=== PATIENT | male | born 1935 | race Caucasian/White ===

== ENCOUNTER 2017-01-21 11:51 | Inpatient (IN) | payer OTHER, MEDICARE ==
[~2017-01-21] VITALS: Ht 180.3 cm; Wt 70.2 kg
--- NOTE | 2017-01-21 14:58 | ED NURSING NOTES ---
Clinical Report - Nurses [facility] [address] [place] [address] 01/21/2017 11:51 Patient: XENA MAK TRIAGE Triage time 12:06. Acuity: LEVEL 3. Chief Complaint: ABDOMINAL PAIN. 12:19 01/21/17. Alert. SEPSIS SCREEN: Sepsis Screen. Negative (no infection suspected/documented). --12:19 Thlaia Stanley R.N. 12:08 01/21/17. BP: 165/63. HR: 102. RR: 22. O2 saturation: 96%. Temp: 97.3 F. Pain level now: 12/03. --12:19 Thalia Stanley R.N. 12:23 01/21/17. --12:23 Thalia Stanley R.N. 15:44 01/21/17. --15:44 Thalia Stanley R.N. Weight: 71.6 kg stated. Height/Length: 71 inches Per Patient. BMI: 22. --12:18 Thalia Stanley R.N. Medications Ranitidine HCl Oral. --12:21 Thalia Stanley R.N. Atorvastatin Calcium Oral (Tablet 20 mg) 1 tablet, daily. --12:39 Thalia Stanley R.N. Ibuprofen Oral (Tablet 400 mg) 1 tablet, 3x a day as needed. --12:39 Thalia Stanley R.N. Ketoconazole External (Shampoo 2 %), 2x per week. --12:39 Thalia Stanley R.N. Levothyroxine Sodium Oral (Tablet 100 mcg) 1 tablet, daily. --12:40 Thalia Stanley R.N. Magnesium Oral (Tablet 250 mg) 1 tablet, daily. --12:44 Thalia Stanley R.N. Metoprolol Tartrate Oral (Tablet 25 mg) 1 tablet, BID. --12:45 Thalia Stanley R.N. Potassium Chloride ER Oral (Tablet Extended Release 20 meq) 1 tablet, daily. --12:46 Thalia Stanley R.N. Taztia XT Oral (Capsule Extended Release 24 Hour 120 mg) 2 capsules, daily. --12:46 Thalia Stanley R.N. Tylenol Oral (Tablet 325 mg) 2 tablets, PRN. --12:46 Thalia Stanley R.N. Vitamin D Oral (Capsule 2000 unit) 1 capsule, daily. --12:47 Thalia Stanley R.N. Ketoconazole External (Cream 2 %), 2x a day. --12:51 Thalia Stanley R.N. Allergies Penicillin. --12:13 Thalia Stanley R.N. Iodine. --12:13 Thalia Stanley R.N. History Arrived by private vehicle. 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 Primary physician referred the patient for evaluation (Dr Tirso Mcduffie). ( Patient had ultrasound at his PCP today. PCP recommended that the patient come here.). Onset. (last weekend). No nausea, vomiting, diarrhea or constipation. Last oral intake by patient was dinner yesterday. 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 PAST MEDICAL HX: Immunizations: up-to-date. SOCIAL HX: Never smoker. No alcohol use or drug use. FALL RISK ASSESSMENT: Fall risk assessment completed. No fall risk identified. NUTRITIONAL RISK ASSESSMENT: The nutritional risk assessment revealed no deficiencies. FUNCTIONAL ASSESSMENT: Functional assessment: no impairments noted. LEARNING NEEDS ASSESSMENT: The learning needs assessment revealed no barriers. SKIN INTEGRITY ASSESSMENT: Skin integrity risk assessment completed. No skin integrity risk identified. --12:19 Thalia Stanley R.N. ( Patient states his PCP prescribed ranitidine. He reports the ranitidine made him feel better for a few days, but the pain came back worse last night after eating a dinner of grilled cheese and broccoli.). --12:23 Thalia Stanley R.N. PAST MEDICAL HX: Immunizations: up-to-date. --15:44 Thalia Stanley R.N. PROBLEMS: Hypertension. --12:14 Thalia Stanley R.N. Rectal cancer. Colostomy present. --12:14 Thalia Stanley R.N. Interventions ID band on patient. To treatment room. --12:19 Thalia Stanley R.N. PHYSICAL ASSESSMENT 12:25 01/21/17. To room via wheelchair. GENERAL / NEURO / PSYCH: Alert. Oriented X 4. Appears in pain. HEENT: Mucous membranes are pink. RESPIRATORY: Mild respiratory distress. Breath sounds within normal limits. CVS: Capillary refill less than 2 seconds. GI / : Abdomen soft. Abdominal tenderness in the upper abdomen and epigastric area. Bowel sounds within normal limits. SKIN: Skin is warm and dry. --12:25 Thalia Stanley R.N. NURSING PROGRESS NOTES 12:24 01/21/2017 Site #1 started via IV in the right antecubital space with an 20g angiocath, with aseptic technique and good blood return; two attempts. Blood drawn: rainbow set. Labeled in the presence of the patient and sent to the lab. Saline lock flushed with 10 mL saline. --12:24 Anh De La Torre R.N. 12:27 01/21/17. Two patient identifiers checked. Call light placed in reach. Side rails up x 1. Bed placed in lowest position. Brakes of bed on. Patient ready for evaluation- chart flagged and notification provided. Patient and family informed about reason for wait and about plan of care. --12:27 Thalia Stanley R.N. 12:35 01/21/17. ( Patient attempted to provide urine sample but was unable to. Patient aware that urine sample is needed.). --12:35 Thalia Stanley R.N. Patient transported to [place] by stretcher with tech. --13:23 Durga Nath R.N. 13:24 01/21/17. :family confirmed. Clean catch urine collected; sample sent to lab. Specimen labeled in the presence of the patient (voided per urinal). --13:25 Mirella Huizar R.N. 13:32 01/21/2017 Started bag #1 1000 mL IV Fluids IV NS (Saline); bolus of 500 mL over 30 minute(s) via site #1 via IV pump. Allergies verified and confirmed 5 rights. IV patency established. IV site checked: no pain, redness, or swelling. IV flushed thoroughly pre- and post-medication administration. Completed per protocol. --13:37 Thalia Stanley R.N. 13:34 01/21/2017 Zofran (Ondansetron HCl) IVP 4 mg given over 2 minute(s) via site #1. Allergies verified and confirmed 5 rights. IV patency established. IV site checked: no pain, redness, or swelling. IV flushed thoroughly pre- and post-medication administration. IVP given by RN. --13:38 Thalia Stanley R.N. 13:37 01/21/2017 Dilaudid (HYDROmorphone HCl PF) IVP 0.5 mg given over 2 minute(s) via site #1. Allergies verified, confirmed 5 rights and sedative warning given to the patient and patient's family. IV patency established. IV site checked: no pain, redness, or swelling. IV flushed thoroughly pre- and post-medication administration. IVP given by RN. --13:37 Thalia Stanley R.N. 13:45 01/21/17. ( Patient given ice chips to wet mouth. Patient aware that he cannot eat or drink. Resting quietly in room with wide and caregiver.). --13:45 Thalia Stanley R.N. 13:52 01/21/17. ( lab at bedside). --13:52 Thalia Stanley R.N. 14:06 01/21/2017 IV Fluids IV NS via IV site #1 Rate Changed: bag #1 decreased to 125 mL/hr via IV pump. IV patency established. IV site checked: no pain, redness, or swelling. IV flushed thoroughly. Confirmed 5 Rights. --14:06 Thalia Stanley R.N. 14:18 01/21/17. BP: 142/59. HR: 88. RR: 16. O2 saturation: 89%. Temp: deferred. --14:20 Thalia Stanley R.N. 14:20 01/21/17. ( Patient sleeping in bed). --14:20 Thalia tSanley R.N. 15:32 01/21/2017 Started 750 mg of Levaquin (Levofloxacin) IVPB in bag #1 150 mL; at 100 mL/hr over 1.5 hour(s) via site #1 via IV pump. Allergies verified and confirmed 5 rights. IV patency established. IV site checked: no pain, redness, or swelling. IV flushed thoroughly pre- and post-medication administration. Completed per protocol. --15:37 Thalia Stanley R.N. 15:33 01/21/2017 Started 500 mg of Metronidazole IVPB in bag #1 100 mL; at 100 mL/hr over 1 hour(s) via site #1 via IV pump. Allergies verified and confirmed 5 rights. IV patency established. IV site checked: no pain, redness, or swelling. IV flushed thoroughly pre- and post-medication administration. Completed per protocol. --15:38 Thalia Stanley R.N. 15:40 01/21/17. --15:40 Thalia Stanley R.N. 15:38 01/21/17. BP: 137/59. HR: 95. RR: 18. O2 saturation: 90%. --15:40 Thalia Stanley R.N. 16:05 01/21/17. Pain level now: 11/05. --16:06 Thalia Stanley R.N. Reassessment after fluids administered and medication administered. He is resting quietly and sleeping and has had no adverse reaction. Overall patient status- he states feels better (Patient appears more comfortable after pain med and fluids.). --16:06 Thalia Stanley R.N. 16:34 01/21/2017 Metronidazole IVPB Discontinued: bag #1 completed upon admission. Total amount infused: 100 mL. IV patency established. IV site checked: no pain, redness, or swelling. IV flushed thoroughly. --16:34 Thalia Stanley R.N. 16:58 01/21/2017 IV Fluids IV NS Continued: upon admission at the rate of 125 mL/hr. 200 mL remaining bag #1. IV patency established. IV site checked: no pain, redness, or swelling. IV flushed thoroughly. --17:44 Thalia Stanley R.N. 16:58 01/21/2017 Levaquin IVPB Continued: upon admission at the rate of 100 mL/hr. 25 mL remaining bag #1. IV patency established. IV site checked: no pain, redness, or swelling. IV flushed thoroughly. --17:46 Thalia Stanley R.N. DISPOSITION / DISCHARGE 16:54 01/21/17. Report was given to a nurse via a phone call. Report included patient's care, treatment, medications, reviewed medication reconcilliation, and condition (including any recent changes or anticipated changes). All questions were answered. Report was acknowledged and care was transferred. --16:54 Thalia Stanley R.N. 16:53 01/21/17. BP: 121/51. HR: 95. RR: 19. O2 saturation: 92%. Temp: deferred. Pain level now: 11/05. --16:54 Thalia Stanley R.N. Departure time: 16:58. Transported via stretcher by nurse with IV. Bed obtained (302). --17:41 Thalia Stanley R.N. Locked/Released at 01/21/2017 17:47 by Thalia Stanley R.N.
--- NOTE | 2017-01-21 14:58 | ED CLINICAL REPORT ---
Clinical Report - Physicians/Mid Levels [facility] [address] [place] [address] 01/21/2017 11:51 Patient: XENA MAK Time Seen: 12:15. Arrived- By private vehicle. Historian- patient. HISTORY OF PRESENT ILLNESS Chief Complaint: ABDOMINAL PAIN. At its maximum, severity described as 7 / 10. When seen in the E.D., severity described as 3 / 10. It is described as dull. No radiation. It is described as located in the right abdomen. This started about 1 week ago and is still present. It was gradual in onset and has been waxing/waning. No nausea, vomiting or diarrhea. (The patient has family report that he had a prior history initially of a J-pouch after his cancer resection. He subsequently had a bowel obstruction and ended up receiving a colostomy. Apparently he had another surgery for a periosteal hernia. These were apparently performed at [facility] by Dr. Velasco.). Similar symptoms previously: Several times. REVIEW OF SYSTEMS The patient has had chills and fatigue. No calf pain, chest pain, cough, difficulty breathing or pedal edema. No palpitations, black stools, bloody stools or urinary problems. All systems otherwise negative, except as recorded above. PAST HISTORY PCP - (Dr Tirso Mcduffie) Surgeon - Paige Velasco at [facility]. Problems: Rectal cancer. Colostomy present. Hypertension. Medications: Ketoconazole External (Cream 2 %), 2x a day. Vitamin D Oral (Capsule 2000 unit) 1 capsule, daily. Tylenol Oral (Tablet 325 mg) 2 tablets, PRN. Taztia XT Oral (Capsule Extended Release 24 Hour 120 mg) 2 capsules, daily. Potassium Chloride ER Oral (Tablet Extended Release 20 meq) 1 tablet, daily. Metoprolol Tartrate Oral (Tablet 25 mg) 1 tablet, BID. Magnesium Oral (Tablet 250 mg) 1 tablet, daily. Levothyroxine Sodium Oral (Tablet 100 mcg) 1 tablet, daily. Ketoconazole External (Shampoo 2 %), 2x per week. Ibuprofen Oral (Tablet 400 mg) 1 tablet, 3x a day as needed. Atorvastatin Calcium Oral (Tablet 20 mg) 1 tablet, daily. Ranitidine HCl Oral. Allergies: Iodine. Penicillin. SOCIAL HISTORY Never smoker. No alcohol use or drug use. He lives with spouse and a family member. Has good social support. FAMILY HISTORY No significant family medical history. ADDITIONAL NOTES The nursing notes have been reviewed. PHYSICAL EXAM Vital Signs: 01/21/2017 12:08 BP: 165/63. HR: 102. RR: 22. O2 saturation: 96%. Temp: 97.3 F. Pain level now: 12/03. Have been reviewed. Appearance: Alert. Appears to be in pain. Eyes: Pupils equal, round and reactive to light. ENT: Pharynx normal. Neck: Neck supple. CVS: Normal heart rate and rhythm. Heart sounds normal. Respiratory: No respiratory distress. Breath sounds normal. Abdomen: Soft. Moderate tenderness diffusely and in the right side of the abdomen. No organomegaly. No mass. Distention. (His colostomy site showed a warm pink stoma with some mild extrusion. He did have some peristomal tenderness. There was brown stool noted.). Back: Normal inspection. Skin: Skin warm and dry. Extremities: Extremities exhibit normal ROM. No calf tenderness. No lower extremity edema. LABS, X-RAYS, AND EKG Abdominal CT: IMPRESSION: 1. Focal inflammation around the cecum/proximal colon/appendix in the right mid abdomen. Differential diagnosis includes appendicitis, focal colitis, diverticulitis, less likely inflammatory neoplasm. 2. 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 This appearance has been seen on the most recent prior CT scan without significant change. This may represent chronic findings or could be recurrent acute obstruction. 3. 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 Correlate clinically with any other signs of small bowel ischemia. 4. Parastomal hernia may also cause obstruction of the exiting and descending colon has a moderate amount of retained solid stool, in the distal colon is visible. 5. Complex cystic perirectal mass, chronic. Known history of rectal cancer. 6. Atherosclerosis. 7. Discussed with Dr. Bolton and with Dr. Paredes. The study was interpreted contemporaneously by me and discussed with the radiologist. Laboratory Tests: UA-Culture if indicated: (LILLIE: 01/21/2017 13:15) ( MsgRcvd 01/21/2017 13:50) Final results Test Result Flag Units (Reference) URINE COLOR YELLOW URINE APPEARANCE CLEAR URINE GLUCOSE NEGATIVE (NEGATIVE) URINE BILIRUBIN NEGATIVE (NEGATIVE) URINE KETONE NEGATIVE (NEGATIVE) URINE SPECIFIC GRAVITY 1.020 (1.010-1.030) URINE PH 8.0 (5.0-8.0) URINE PROTEIN NEGATIVE (NEGATIVE) URINE UROBILINOGEN 0.2 EU/dL (0.2-1.0) URINE NITRITE NEGATIVE (NEGATIVE) URINE BLOOD NEGATIVE (NEGATIVE) URINE LEUK ESTERASE NEGATIVE (NEGATIVE) URINE RBC NONE SEEN rbc/hpf (0-1) URINE WBC NONE SEEN wbc/hpf (0-1) URINE EPITHELIAL CELLS 0-1 EPI/hpf (0-5) URINE BACTERIA TRACE (<1+) (NONE SEEN) URINE COMMENT CULT NOT INDICATED URINE CULTURES ARE SET-UP BASED ON THE FOLLOWING CRITERIA:POSITIVE NITRITEPOSITIVE LEUKOCYTE ESTERASEGREATER THAN 10 WHITE BLOOD CELLSMODERATE (2+) OR GREATER BACTERIA CBC w Diff: (LILLIE: 01/21/2017 12:15) ( [facility] 01/21/2017 12:32) Final results Test Result Flag Units (Reference) WHITE BLOOD COUNT 20.0 H K/uL (4.5-11.5) RED BLOOD COUNT 4.36 L M/uL (4.50-5.90) HEMOGLOBIN 13.1 L gm/dL (13.5-17.5) HEMATOCRIT 39.8 L % (41.0-53.0) MEAN CELL VOLUME 91 fL (80-100) MEAN CORPUSCULAR HGB 30 pg (26-34) MEAN CORPUSCULAR HGB CONC 33 g/dL (31-37) RED CELL DISTRIBUTION WIDTH 14.8 % (11.6-14.8) PLATELET COUNT 392 K/uL (150-400) NEUTROPHIL % 91.9 H % (50-75) LYMPH % 4.2 L % (25-40) MONO % 3.9 % (3-14) EOSINOPHIL % 0 % (0-4) BASOPHIL % 0 % (0-2) Lactate, Serum: (LILLIE: 01/21/2017 14:00) ( [facility] 01/21/2017 14:35) Final results Test Result Flag Units (Reference) LACTIC ACID 1.3 mmol/L (0.4-2.0) CMP: (LILLIE: 01/21/2017 12:15) ( MsgRcvd 01/21/2017 12:44) Final results Test Result Flag Units (Reference) GLUCOSE 132 H mg/dL (70-110) BUN 24 H mg/dL (7-18) CREATININE 1.1 mg/dL (0.6-1.3) Estimated GFR >60 mL/min Estimated GFR- >60 mL/min Note: Persistent reduction over 3 months in eGFR<60 mL/min/1.73 m2 defines CKD. Patients with eGFR values>=60 mL/min/1.73 m2 may also have CKD if evidence ofpersistent proteinuria. Additional information may be foundat www.kidney.org. SODIUM 137 mmol/L (136-145) POTASSIUM 3.9 mmol/L (3.5-5.1) CHLORIDE 100 mmol/L (98-107) CARBON DIOXIDE 26 mmol/L (21-32) CALCIUM 9.0 mg/dL (8.5-10.1) TOTAL PROTEIN 8.1 g/dL (6.4-8.2) ALBUMIN 3.3 g/dL (3.3-5.0) BILIRUBIN, TOTAL 0.8 mg/dL (0.0-1.0) ALKALINE PHOSPHATASE 93 U/L (46-116) AST (SGOT) 22 U/L (15-37) ALT (SGPT) 26 U/L (12-78) LIPASE 129 U/L (73-393) AMYLASE 45 U/L (25-115) . PROGRESS AND PROCEDURES Consult obtained from surgery. Dr. Paredes. Case discussed. Consultation performed in ED. Patient/family counseled. Old medical records ordered. Old records unavailable. Disposition: Admitted. CLINICAL IMPRESSION Acute appendicitis. Sepsis. peristomal hernia. (Electronically signed by Larry Vaca MD 01/21/2017 18:53)
--- NOTE | 2017-01-21 14:58 | ED ORDER SUMMARY ---
..... Patient: XENA MAK OrderSheet [facility] VisitID: [id number] [place] [address] 81y, M Registration Date/Time: 01/21/2017 ORDER SHEET Weight: 71.6 kg (stated) Allergies: Penicillin, Iodine GENERAL ORDERS: CBC w Diff Urgent (12:16 01/21/2017 Shaina HUFF) (Ack 12:17 Flako Reno) (12:24 MWinterer R.N.) CMP Urgent (12:16 01/21/2017 Shaina HUFF) (Ack 12:17 Flako Reno) (12:24 MWinterer R.N.) UA-Culture if indicated Urgent (12:16 01/21/2017 Shaina HUFF) (Ack 12:17 Flako Reno) (13:25 Aaron R.N.) Amylase Urgent (12:16 01/21/2017 Shaina HUFF) (Ack 12:17 Flako Reno) (12:24 MWinterer R.N.) Lipase Urgent (12:16 01/21/2017 Shaina HUFF) (Ack 12:17 Flako Reno) (12:24 MWinterer R.N.) CT Abd/Pel wo Cont Urgent (13:08 01/21/2017 Shaina HUFF) (Ack 13:11 Flako Reno) (13:38 RMarsden R.N.) Lactate, Serum Urgent (13:10 01/21/2017 Shaina HUFF) (Ack 13:11 Flako Reno) (13:52 RMarsden R.N.) Blood Culture (No) (N/A) Urgent (13:11 01/21/2017 Shaina HUFF) (Ack 13:11 Flako Reno) (13:52 RMarsden R.N.) MEDICATION ORDERS: IV FLUIDS: IV Saline Lock (12:16 01/21/2017 Shaina HUFF) (Ack 12:33 RMarsden R.N.) (12:33 RMarsden R.N.) IV NS : initial bolus 500 mL (1000 mL/hr), then 125 mL/hr for 4h (NOW); Urgent (13:07 01/21/2017 Shaina HUFF) (Ack 13:25 RMarsden R.N.) (13:37 RMarsden R.N.) Dilaudid IV 0.5 mg (NOW) (13:07 01/21/2017 Shaina HUFF) (Ack 13:25 RMarsden R.N.) (13:37 RMarsden R.N.) Zofran IV 4 mg (NOW) (13:07 01/21/2017 Shaina HUFF) (Ack 13:25 RMarsden R.N.) (13:38 RMarsden R.N.) Levaquin IV 750 mg/150 mL (NOW) (14:51 01/21/2017 Shaina HUFF) (Ack 15:07 RMarsden R.N.) (15:37 RMarsden R.N.) Metronidazole IV 500 mg/100mL (NOW) (14:51 01/21/2017 Shaina HUFF) (Ack 15:07 RMarsden R.N.) (15:38 RMarsden R.N.) ORDER SHEET NOTES: [Electronically signed by Thalia Stanley R.N. (17:47 01/21/2017)] [Electronically signed by Larry Vaca MD (18:53 01/21/2017)] [Electronically locked/signed by Thalia Stanley R.N. (17:47 01/21/2017)]
--- NOTE | 2017-01-21 14:58 | ED ORDER SUMMARY ---
..... Patient: XENA MAK OrderSheet [facility] VisitID: [id number] [place] [address] 81y, M Registration Date/Time: 01/21/2017 ORDER SHEET Weight: 71.6 kg (stated) Allergies: Penicillin, Iodine GENERAL ORDERS: CBC w Diff Urgent (12:16 01/21/2017 Shaina HUFF) (Ack 12:17 Flako Reno) (12:24 MWinterer R.N.) CMP Urgent (12:16 01/21/2017 Shaina HUFF) (Ack 12:17 Flako Reno) (12:24 MWinterer R.N.) UA-Culture if indicated Urgent (12:16 01/21/2017 Shaina HUFF) (Ack 12:17 Flako Reno) (13:25 Aaron R.N.) Amylase Urgent (12:16 01/21/2017 Shaina HUFF) (Ack 12:17 Flako Reno) (12:24 MWinterer R.N.) Lipase Urgent (12:16 01/21/2017 Shaina HUFF) (Ack 12:17 Flako Reno) (12:24 MWinterer R.N.) CT Abd/Pel wo Cont Urgent (13:08 01/21/2017 Shaina HUFF) (Ack 13:11 Flako Reno) (13:38 RMarsden R.N.) Lactate, Serum Urgent (13:10 01/21/2017 Shaina HUFF) (Ack 13:11 Flako Reno) (13:52 RMarsden R.N.) Blood Culture (No) (N/A) Urgent (13:11 01/21/2017 Shaina HUFF) (Ack 13:11 Flako Reno) (13:52 RMarsden R.N.) MEDICATION ORDERS: IV FLUIDS: IV Saline Lock (12:16 01/21/2017 Shaina HUFF) (Ack 12:33 RMarsden R.N.) (12:33 RMarsden R.N.) IV NS : initial bolus 500 mL (1000 mL/hr), then 125 mL/hr for 4h (NOW); Urgent (13:07 01/21/2017 Shaina HUFF) (Ack 13:25 RMarsden R.N.) (13:37 RMarsden R.N.) Dilaudid IV 0.5 mg (NOW) (13:07 01/21/2017 Shaina HUFF) (Ack 13:25 RMarsden R.N.) (13:37 RMarsden R.N.) Zofran IV 4 mg (NOW) (13:07 01/21/2017 Shaina HUFF) (Ack 13:25 RMarsden R.N.) (13:38 RMarsden R.N.) Levaquin IV 750 mg/150 mL (NOW) (14:51 01/21/2017 Shaina HUFF) (Ack 15:07 RMarsden R.N.) (15:37 RMarsden R.N.) Metronidazole IV 500 mg/100mL (NOW) (14:51 01/21/2017 Shaina HUFF) (Ack 15:07 RMarsden R.N.) (15:38 RMarsden R.N.) ORDER SHEET NOTES: [Electronically signed by Thalia Stanley R.N. (17:47 01/21/2017)] [Electronically signed by Larry Vaca MD (18:53 01/21/2017)] [Electronically locked/signed by Thalia Stanley R.N. (17:47 01/21/2017)]
--- NOTE | 2017-01-21 16:17 | DIAGNOSTIC IMAGING REPORT ---
PROCEDURE: CT ABDOMEN/PELVIS W/O CONTRAST INDICATION: ABDOMINAL PAIN TECHNIQUE: Axial CT images were obtained through the abdomen and pelvis without IV contrast. Coronal and sagittal reformations were created. COMPARISON: 06/16/2016, 03/30/2016, 05/07/2014, all from [facility] FINDINGS: Bubbly subdiaphragmatic air collection under the right hemidiaphragm associated with bowel wall is present, chronic. There are significantly dilated right upper quadrant and mid abdominal small bowel loops. Pneumatosis intestinalis is also seen anteriorly associated with dilated small bowel loop which measures about 7.4 cm in transverse diameter. There is a loop of dilated small bowel herniating into the left lower quadrant para stomal fat. The stomach is decompressed. Proximal small bowel loops are also relatively normal caliber. There is moderate focal inflammation in the right mid pericolic gutter caudal to the right kidney. The appendix is present and appears dilated measuring 11 mm. The wall is thickened. There is adjacent wall thickening of the proximal colon and moderate perinephric stranding and free fluid. Trace amount of fluid is present in the proximal right pericolic gutter adjacent to the gallbladder and liver. The unenhanced appearance of the liver, gallbladder, adrenal glands, spleen, and pancreas appear normal. There is heavy aortic atherosclerosis. Cysts are present associated with each kidney. There is solid stool in the cecum. A mid proximal colon anastomosis is present. There is a mildly increased amount of solid stool in the distal transverse and descending colon to the level just proximal to the colostomy in the left lower quadrant. Complex cystic mass with irregular, ill-defined borders blurring perirectal fat planes in the posterior low pelvis. There is mild dorsal retraction of pelvic vasculature and sclerosis along the sacral cortex. Prostate gland, urinary bladder, and pelvic vessel caliber appears otherwise normal. Severe degenerative disc height loss in the lumbar spine. No focal osseous lesions. Heavy systemic and coronary atherosclerosis. IMPRESSION: 1. Focal inflammation around the cecum/proximal colon/appendix in the right mid abdomen. Differential diagnosis includes appendicitis, focal colitis, diverticulitis, less likely inflammatory neoplasm. 2. 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 This appearance has been seen on the most recent prior CT scan without significant change. This may represent chronic findings or could be recurrent acute obstruction. 3. 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 Correlate clinically with any other signs of small bowel ischemia. 4. Parastomal hernia may also cause obstruction of the exiting and descending colon has a moderate amount of retained solid stool, in the distal colon is visible. 5. Complex cystic perirectal mass, chronic. Known history of rectal cancer. 6. Atherosclerosis. 7. Discussed with Dr. Vaca and with Dr. Paredes. All CT scans at this facility use dose modulation, iterative reconstruction, and/or weight-based dosing when appropriate to reduce radiation dose to as low as reasonably achievable.
[2017-01-21 17:26] VITALS: BP 129/58
--- NOTE | 2017-01-21 18:53 | ED MED RECONCILIATION SUMMARY ---
Patient: XENA MAK Medication Reconciliation Report [facility] VisitID: [id number] [address] [place] [address] 81y, M Registration Date/Time: 01/21/2017 Weight: 71.6 kg Height/Length: 71 in. BMI: 22.0 ALLERGIES: Iodine, Penicillin The patient's Home Medications are listed below: THE FOLLOWING MEDICATIONS NEED TO BE RECONCILED: Atorvastatin Calcium Oral (20 mg) 1 tablet, daily Ibuprofen Oral (400 mg) 1 tablet, 3x a day Ketoconazole External (2 %), 2x a day Ketoconazole External (2 %), 2x per week Levothyroxine Sodium Oral (100 mcg) 1 tablet, daily Magnesium Oral (250 mg) 1 tablet, daily Metoprolol Tartrate Oral (25 mg) 1 tablet, BID Potassium Chloride ER Oral (20 meq) 1 tablet, daily Ranitidine HCl Oral Taztia XT Oral (120 mg) 2 capsules, daily Tylenol Oral (325 mg) 2 tablets, PRN Vitamin D Oral (2000 unit) 1 capsule, daily The source(s) of the original Home Medication information: Not obtained. The following Medications were given to the patient in the Emergency Department: IV NS IV Fluids bolus 500 mL over 30 minute(s), administered: 01/21/2017 1:32:00 PM Dilaudid [IVP] IVP 0.5 mg, administered: 01/21/2017 1:37:00 PM Zofran [IVP] IVP 4 mg, administered: 01/21/2017 1:34:00 PM Levaquin [IVPB] IVPB bolus 0, then 750 mg 100 mL/hr, administered: 01/21/2017 3:32:00 PM Metronidazole [IVPB] IVPB bolus 0, then 500 mg 100 mL/hr, administered: 01/21/2017 3:33:00 PM The following Medications were prescribed to the patient: None.
--- NOTE | 2017-01-21 18:53 | ED MED RECONCILIATION SUMMARY ---
Patient: XENA MAK Medication Reconciliation Report [facility] VisitID: [id number] [address] [place] [address] 81y, M Registration Date/Time: 01/21/2017 Weight: 71.6 kg Height/Length: 71 in. BMI: 22.0 ALLERGIES: Iodine, Penicillin The patient's Home Medications are listed below: THE FOLLOWING MEDICATIONS NEED TO BE RECONCILED: Atorvastatin Calcium Oral (20 mg) 1 tablet, daily Ibuprofen Oral (400 mg) 1 tablet, 3x a day Ketoconazole External (2 %), 2x a day Ketoconazole External (2 %), 2x per week Levothyroxine Sodium Oral (100 mcg) 1 tablet, daily Magnesium Oral (250 mg) 1 tablet, daily Metoprolol Tartrate Oral (25 mg) 1 tablet, BID Potassium Chloride ER Oral (20 meq) 1 tablet, daily Ranitidine HCl Oral Taztia XT Oral (120 mg) 2 capsules, daily Tylenol Oral (325 mg) 2 tablets, PRN Vitamin D Oral (2000 unit) 1 capsule, daily The source(s) of the original Home Medication information: Not obtained. The following Medications were given to the patient in the Emergency Department: IV NS IV Fluids bolus 500 mL over 30 minute(s), administered: 01/21/2017 1:32:00 PM Dilaudid [IVP] IVP 0.5 mg, administered: 01/21/2017 1:37:00 PM Zofran [IVP] IVP 4 mg, administered: 01/21/2017 1:34:00 PM Levaquin [IVPB] IVPB bolus 0, then 750 mg 100 mL/hr, administered: 01/21/2017 3:32:00 PM Metronidazole [IVPB] IVPB bolus 0, then 500 mg 100 mL/hr, administered: 01/21/2017 3:33:00 PM The following Medications were prescribed to the patient: None.
--- NOTE | 2017-01-21 18:53 | ED MAR SUMMARY ---
..... Medication Administration Record [facility] [address] [facility] [address] Patient: XENA MAK Visit ID: [id number] 81y, M Weight: 71.6 kg Height/Length: 71 in BMI: 22 ALLERGIES: Iodine, Penicillin Start 13:32 01/21/2017 Thalia Stanley R.N., Continued Upon Admission 16:58 01/21/2017 Thalia Stanley R.N. Medication Administered: IV NS (SALINE), Dose: IV Fluids, Bolus: 500 mL over 30 minute(s), Dispensed: 1000 mL bag, Site: #1 right AC. Medication Ordered: IV NS : initial bolus 500 mL (1000 mL/hr), then 125 mL/hr for 4h (NOW); Urgent. Given 13:34 01/21/2017 Thalia Stanley R.N. Medication Administered: ZOFRAN [IVP] (ONDANSETRON HCL), Dose: 4 mg IVP over 2 minute(s), Site: #1 right AC. Medication Ordered: Zofran IV 4 mg (NOW). Given 13:37 01/21/2017 Thalia Stanley R.N. Medication Administered: DILAUDID [IVP] (HYDROMORPHONE HCL PF), Dose: 0.5 mg IVP over 2 minute(s), Site: #1 right AC. Medication Ordered: Dilaudid IV 0.5 mg (NOW). Start 15:32 01/21/2017 Thalia Stanley R.N., Continued Upon Admission 16:58 01/21/2017 Thalia Stanley R.N. Medication Administered: LEVAQUIN [IVPB] (LEVOFLOXACIN), Dose: 750 mg IVPB over 1.5 hour(s), Rate: 100 mL/hr, Dispensed: 150 mL bag, Site: #1 right AC. Medication Ordered: Levaquin IV 750 mg/150 mL (NOW). Start 15:33 01/21/2017 Thalia Stanley R.N., Stop 16:34 01/21/2017 Thalia Stanley R.N. Medication Administered: METRONIDAZOLE [IVPB], Dose: 500 mg IVPB over 1 hour(s), Rate: 100 mL/hr, Dispensed: 100 mL bag, Site: #1 right AC. Medication Ordered: Metronidazole IV 500 mg/100mL (NOW).
--- NOTE | 2017-01-21 18:53 | ED DISCHARGE INSTRUCTIONS ---
Patient: XENA MAK General Instructions [facility] VisitID: [id number] [address] [place] [address] 81y, M Registration Date/Time: 01/21/2017 Acute appendicitis. Sepsis. peristomal hernia. (Electronically signed by Larry Vaca MD 01/21/2017 18:53)
--- NOTE | 2017-01-21 18:53 | ED DISCHARGE INSTRUCTIONS ---
Patient: XENA MAK General Instructions [facility] VisitID: [id number] [address] [place] [address] 81y, M Registration Date/Time: 01/21/2017 Acute appendicitis. Sepsis. peristomal hernia. (Electronically signed by Larry Vaca MD 01/21/2017 18:53)
--- NOTE | 2017-01-21 18:53 | ED MAR SUMMARY ---
..... Medication Administration Record [facility] [address] [facility] [place] [address] Patient: XENA MAK Visit ID: [id number] 81y, M Weight: 71.6 kg Height/Length: 71 in BMI: 22 ALLERGIES: Iodine, Penicillin Start 13:32 01/21/2017 Thalia Stanley R.N., Continued Upon Admission 16:58 01/21/2017 Thalia Stanley R.N. Medication Administered: IV NS (SALINE), Dose: IV Fluids, Bolus: 500 mL over 30 minute(s), Dispensed: 1000 mL bag, Site: #1 right AC. Medication Ordered: IV NS : initial bolus 500 mL (1000 mL/hr), then 125 mL/hr for 4h (NOW); Urgent. Given 13:34 01/21/2017 Thalia Stanley R.N. Medication Administered: ZOFRAN [IVP] (ONDANSETRON HCL), Dose: 4 mg IVP over 2 minute(s), Site: #1 right AC. Medication Ordered: Zofran IV 4 mg (NOW). Given 13:37 01/21/2017 Thalia Stanley R.N. Medication Administered: DILAUDID [IVP] (HYDROMORPHONE HCL PF), Dose: 0.5 mg IVP over 2 minute(s), Site: #1 right AC. Medication Ordered: Dilaudid IV 0.5 mg (NOW). Start 15:32 01/21/2017 Thalia Stanley R.N., Continued Upon Admission 16:58 01/21/2017 Thalia Stanley R.N. Medication Administered: LEVAQUIN [IVPB] (LEVOFLOXACIN), Dose: 750 mg IVPB over 1.5 hour(s), Rate: 100 mL/hr, Dispensed: 150 mL bag, Site: #1 right AC. Medication Ordered: Levaquin IV 750 mg/150 mL (NOW). Start 15:33 01/21/2017 Thalia Stanley R.N., Stop 16:34 01/21/2017 Thalia Stanley R.N. Medication Administered: METRONIDAZOLE [IVPB], Dose: 500 mg IVPB over 1 hour(s), Rate: 100 mL/hr, Dispensed: 100 mL bag, Site: #1 right AC. Medication Ordered: Metronidazole IV 500 mg/100mL (NOW).
--- NOTE | 2017-01-21 19:31 | CONSULTATION REPORT ---
DATE OF CONSULTATION: 01/21/2017 CHIEF COMPLAINT: 1. Right-sided abdominal pain HISTORY OF PRESENT ILLNESS: The patient is an 81-year-old man who reports a 5- day history of right-sided abdominal pain. He originally developed this last Tuesday or Tuesday and went to see his primary care physician. At that time, he was thought to have a gastrointestinal problem and started on oral Zantac. He got a little better initially after starting the Zantac. He reports the pain has been persistent. There has been no nausea, vomiting. He has had no new changes in his bowel habits. The patient has a chronic left lower quadrant colostomy from a low anterior resection done in 2011. He had a malignancy in this area and received neoadjuvant chemo radiotherapy. Following this, he underwent a resection with anastomosis and diverting ileostomy. Apparently, there was a failure in the anastomosis and the patient wound up with a left lower quadrant permanent colostomy. The ileostomy has long since been taken down. The patient then developed a parastomal hernia and in 2013 was taken to surgery by Dr. Tommie Velasco where he underwent placement of a Biologic patch repair. Unfortunately, he has since recurred his parastomal hernia, but has lived okay with it and has not had any problems related to it. It does bulge out quite a bit when he stands up. The patient denies vomiting, hematochezia, or hematemesis. MEDICAL/SURGICAL HISTORY: Hypertension, degenerative joint disease, sleep apnea, hemorrhoids, prostate cancer, (no radiation was given), small-bowel obstruction, stroke (stroke affected his right leg and occurred in 2011, which delayed his colonic surgery), glucose intolerance without the diagnosis of diabetes, basal cell carcinoma of the skin, thyroid nodule, urinary stress incontinence, hypothyroidism, hyperlipidemia, and CHF. Past surgeries: Include inguinal hernia repair, as well as the abdominal surgeries described. MEDICATIONS: 1. Atorvastatin 20 mg daily. 2. Ibuprofen 400 mg t.i.d. as needed. 3. Ketoconazole shampoo. 4. Synthroid 0.1 mg daily. 5. Magnesium 250 b.i.d. 6. Metoprolol 25 mg b.i.d. 7. KCl ER 20 mEq daily. 8. Taztia 120 mg XT daily. 9. Tylenol as needed. 10. Vitamin D3 2000 units daily. ALLERGIES: 1. IODINE. 2. PENICILLIN (PENICILLIN CAUSED A RASH AND IT IS A VERY REMOTE HISTORY WITH THE DETAILS LOST TO THE SHROUDS OF HISTORY). SOCIAL HISTORY: The patient is currently . He does not smoke cigarettes. His is with him today. FAMILY HISTORY: REVIEW OF SYSTEMS: A multipoint review of systems was obtained and reviewed with the patient. He has the abdominal problems as noted above. He denies additional symptomatology including at least 12 other symptoms. This is consistent with the review of systems obtained with his primary care doctor on 01/17/2017 and is reviewed at this time, as well as by the emergency department physician. PHYSICAL EXAMINATION: VITAL SIGNS: Today, blood pressure 165/63, heart rate of 102, respirations 22, temperature 97.3. GENERAL: The patient is alert and cooperative and answers questions appropriately. His is in attendance with him. HEENT: His ears and nose demonstrated no gross external lesions. Eyes are equal. There is no icterus. NECK: Without palpable mass or thyromegaly. CHEST: Clear to auscultation. HEART: Regular. ABDOMEN: Reveals a colostomy bag in the left lower quadrant. There is a fair amount of bulging tissue in this site; however, it is all soft and nontender. There is no induration and squishes down easily. On the right side, in the right lower quadrant, there is localized tenderness and guarding in this area. There is a small scar above this area of pain, which is the old ileostomy site. There is a long midline incision. Bowel sounds are active. He is nondistended. LAB/IMAGING: The CT scan was reviewed and discussed with Dr. Bolton. Dr. Bolton has also reviewed previous CT scans from [facility]. Comparison to now reveals that the parastomal hernia was there in the past CT scans and is largely unchanged including the appearance of pneumatosis, which is also unchanged from previous studies. She does note a tubular structure in the right lower quadrant with surrounding inflammation consistent with acute appendicitis. There is no obvious drainable abscess. Lab tests were reviewed. The white count is elevated at 20,000, hemoglobin, hematocrit 13 and 39. Chemistries: Sodium and potassium are normal. Glucose is slightly elevated at 132. His liver functions, amylase and lipase are normal. Urinalysis is clear. IMPRESSION: 1. 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 2. Multiple abdominal surgeries. 3. Chronic parastomal hernia. PLAN: I have recommended that patient be admitted on IV antibiotics and we will observe clinically. I explained to the patient and his that in his situation he is primarily a candidate for antibiotic therapy. I explained that there are some risks such as eventual development of an abscess or other complications, but that at the moment, he has numerous surgical risks including age, multiple surgeries, prior radiation and a much higher likelihood of complications. Antibiotic therapy in this situation seems entirely appropriate. In the event that he develops an abscess, a percutaneous drainage can also be done. They appeared to be comfortable with this plan. We are aware that should things go badly he could still require surgery, but that the percentage is arguing in favor of nonsurgical management at this point.
[2017-01-21 22:11] VITALS: BP 121/52
[2017-01-21] MEDS ORDERED: ACID REDUCER150 MG PO (23:20)
[2017-01-21] MEDS ORDERED: IBUPROFEN400 MG PO (23:29)
[2017-01-21] MEDS ORDERED: ATORVASTATIN CA20 MG PO (23:29)
[2017-01-21] MEDS ORDERED: NIZORAL2 % (23:31)
[2017-01-21] MEDS ORDERED: LEVOTHYROXINE100 MCG PO (23:31)
[2017-01-21] MEDS ORDERED: MAGNESIUM400 M1 (23:32)
[2017-01-21] MEDS ORDERED: METOPROLOL TART25 MG PO (23:33)
[2017-01-21] MEDS ORDERED: POTASSIUM CHLO10 ME2 PO (23:33)
[2017-01-21] MEDS ORDERED: TAZTIA XT PO (23:34)
[2017-01-21] MEDS ORDERED: ACETAMINOPHEN325 MG PO (23:35)
[2017-01-21] MEDS ORDERED: VITAMIN D-31000 UNIT PO (23:35)
[2017-01-21] MEDS ORDERED: KETOCONAZOLE2 % TOP (23:36)
[2017-01-22 02:04] VITALS: BP 118/54
[2017-01-22 06:47] VITALS: BP 122/57
[2017-01-22 10:48] VITALS: BP 122/62
--- NOTE | 2017-01-22 10:48 | Progress Note ---
Subjective General Pt. reports that he feels better. Gastrointestinal Abdominal Pain. Denies: Nausea, Vomiting, Diarrhea (abdominal pain is milder), Other (No pain around the stoma site.). Physical Exam Vital Signs / I&Os Vital Signs Date Time Temp Pulse Resp B/P Pulse O2 O2 Flow FiO2 Ox Delivery Rate 01/22 0647 99.1 88 20 122/57 94 Room Air 01/22 0204 98.8 78 18 118/54 92 Room Air 01/21 2211 99.0 82 18 121/52 96 Room Air 01/21 1726 98.2 92 20 129/58 93 Room Air I&O 01/21 0800 01/21 1600 01/22 0000 Intake Total 0 Output Total 196 Balance -196 General Appearance Alert, Oriented X3, Cooperative, No acute distress HEENT Atraumatic, PERRLA, Moist mucous membranes Abdomen Normal bowel sounds, Soft, No tenderness, No guarding, increased tympany /gas-pt. reports that this is a chronic stable situation, the stoma site bulges but is soft and non tender. Assessment and Plan Problem List 1. Appendicitis 2. Parastomal hernia without obstruction or gangrene Plan start clear liquids, hep loc IV, check labs tommorow
[2017-01-22 14:07] VITALS: BP 122/52
[2017-01-22 18:31] VITALS: BP 112/51
[2017-01-22 22:55] VITALS: BP 125/52
[2017-01-23 02:15] VITALS: BP 120/59
[2017-01-23 07:06] VITALS: BP 124/55
--- NOTE | 2017-01-23 09:11 | Progress Note ---
Subjective [facility] -appendicits Pt. feels better, tolerating liquids PO, he reports passing some gas. Physical Exam Vital Signs / I&Os Vital Signs Date Time Temp Pulse Resp B/P Pulse O2 O2 Flow FiO2 Ox Delivery Rate 01/23 0830 Room Air 01/23 0706 98.6 85 18 124/55 93 01/23 0215 98.1 78 18 120/59 94 Room Air 01/22 2255 99.1 79 17 125/52 93 Room Air 01/22 1831 99.0 83 22 112/51 95 Room Air 01/22 1407 98.8 70 20 122/52 93 Room Air 01/22 1048 98.2 71 18 122/62 92 Room Air I&O 01/22 0800 01/22 1600 01/23 0000 Intake Total 0763 911 4390 Output Total 190 1197 640 Balance 919 -477 625 General Appearance Alert, Oriented X3, Cooperative, No acute distress HEENT PERRLA, EOMI, Moist mucous membranes Abdomen Normal bowel sounds, Soft, chronic increased tympany, stomal hernia is soft and some gas in bag. LAB Results Laboratory Tests 01/23 0450 Chemistry Plasma Sodium (136 - 145 mmol/L) 138 Plasma Potassium (3.5 - 5.1 mmol/L) 3.6 Plasma Chloride (98 - 107 mmol/L) 99 CO2 (Enzymatic) (21 - 32 mmol/L) 27 BUN (7 - 18 mg/dL) 15 Creatinine (0.6 - 1.3 mg/dL) 0.8 Est GFR ( Amer) (mL/min) >60 Est GFR (Non-Af Amer) (mL/min) >60 Glucose (70 - 110 mg/dL) 134 Plasma Calcium (8.5 - 10.1 mg/dL) 8.6 Total Bilirubin (0.0 - 1.0 mg/dL) 0.8 AST (15 - 37 U/L) 15 ALT (12 - 78 U/L) 22 Alkaline Phosphatase (46 - 116 U/L) 70 Total Protein (6.4 - 8.2 g/dL) 6.2 Albumin (3.3 - 5.0 g/dL) 2.2 Hematology WBC (4.5 - 11.5 K/uL) 14.2 RBC (4.50 - 5.90 M/uL) 3.48 Hgb (13.5 - 17.5 gm/dL) 10.3 Hct (41.0 - 53.0 %) 31.5 MCV (80 - 100 fL) 91 MCH (26 - 34 pg) 30 RDW (11.6 - 14.8 %) 14.8 Neut % (Auto) (50 - 75 %) 90.9 Lymph % (Auto) (25 - 40 %) 5.0 Mcintosh % (Auto) (3 - 14 %) 3.9 Eos % (Auto) (0 - 4 %) 0.2 Baso % (Auto) (0 - 2 %) 0 Plt Count, EDTA (150 - 400 K/uL) 254 PUBS MCHC (31 - 37 g/dL) 33 Assessment and Plan Problem List 1. Appendicitis Plan add boost to diet, consider po ab's tommorow if non tender. Note decreased WBC but still up, protein and alb are down, chemistries otherwise ok with stable mild hyperglycemia.
[2017-01-23 11:08] VITALS: BP 117/57
[2017-01-23 13:38] VITALS: BP 106/48
[2017-01-23 18:10] VITALS: BP 128/51
[2017-01-23 22:11] VITALS: BP 130/54
[2017-01-24] VITALS (7 sets, daily range): BP systolic 119–142; BP diastolic 54–71
--- NOTE | 2017-01-24 16:08 | Progress Note ---
Subjective General Pt. feels fine, not much pain. Physical Exam Vital Signs / I&Os Vital Signs Date Time Temp Pulse Resp B/P Pulse O2 O2 Flow FiO2 Ox Delivery Rate 01/24 1445 98.8 68 20 119/58 98 Room Air 01/24 1052 98.1 78 18 129/55 97 Room Air 0.0 01/24 0715 98.2 69 16 133/61 95 Room Air 0.0 01/24 0153 97.9 77 18 123/54 92 Room Air 01/23 2211 98.8 73 16 130/54 93 Room Air 01/23 2011 Room Air 01/23 1810 98.6 67 18 128/51 95 Room Air I&O 01/23 0800 01/23 1600 01/24 0000 Intake Total 838 1200 991 Output Total 638 461 939 Balance 200 739 52 General Appearance Alert, Oriented X3, Cooperative Abdomen Normal bowel sounds, Soft, No tenderness, No guarding Assessment and Plan Problem List 1. Appendicitis Plan review of chart show he didn't get more antibiotics but nonetheless feels better. I have restarted levo and flagyl and will probably let him go home tommorow on oral meds I told him that a colonoscopy is due since he is 5 years out from his rectal cancer, and since the current findings could potentially be related to cancer as well as benign appendicitis. 2. Parastomal hernia without obstruction or gangrene
[2017-01-25] VITALS (8 sets, daily range): BP systolic 128–158; BP diastolic 54–78
--- NOTE | 2017-01-25 07:49 | Progress Note ---
Subjective General Pt. reports vomiting and bloating, no increase in pain. Physical Exam Vital Signs / I&Os Vital Signs Date Time Temp Pulse Resp B/P Pulse O2 O2 Flow FiO2 Ox Delivery Rate 01/25 0634 96.6 98 23 135/78 93 0.0 01/25 0238 98.1 94 24 134/71 93 Room Air 01/25 0204 20 05 2254 98.1 85 20 142/59 95 Room Air 01/24 2040 Room Air 0.0 01/24 2037 98.2 79 20 138/71 94 Room Air 01/24 1840 98.2 86 20 135/65 96 Room Air 01/24 1445 98.8 68 20 119/58 98 Room Air 01/24 1052 98.1 78 18 129/55 97 Room Air 0.0 I&O 01/24 0800 01/24 1600 01/25 0000 Intake Total 700 1990 522 Output Total 1250 1265 445 Balance -550 725 77 General Appearance Alert, Oriented X3, Cooperative Lungs Clear to auscultation Abdomen bowel sounds present, abdomen is more distended than his usual baseline distension with increased tympany, no localized tenderness Assessment and Plan Problem List 1. Appendicitis Plan continute antibiotecs, start low dose heparin as he refuses scd's, increase IVF, NG if repeated vomiting.l 2. Small bowel obstruction 3. Parastomal hernia without obstruction or gangrene
--- NOTE | 2017-01-25 11:44 | CONSULTATION REPORT ---
DATE OF CONSULTATION: 01/25/2017 CHIEF COMPLAINT: 1. Managing medications for hypothyroidism and hypertension and hyperlipidemia HISTORY OF PRESENT ILLNESS: This is an 81-year-old white male for whom consultation was asked on 01/25/2017. He presented to the hospital with a 5 days' history of abdominal pain in the right lower quadrant; it was radiating to the left side. The patient had no nausea and no vomiting. No fever, no chills. The patient had liquid stool which was in the colostomy bag. The patient came and workup showed that patient has appendicitis, which is considered chronic, since it has been going on for 6 days. MEDICAL/SURGICAL HISTORY: Past medical history: Remarkable for hypertension, hypothyroidism, hyperlipidemia, degenerative joint disease of multiple joints, sleep apnea, history of prostate cancer, small bowel obstructions, stroke, hyperglycemia and congestive heart failure. Surgical history: Remarkable for inguinal hernia repair and also multiple abdominal surgeries, which ended up with a colostomy. MEDICATIONS: 1. Atorvastatin 20 mg daily. 2. Ibuprofen 400 mg t.i.d. 3. Ketoconazole shampoo. 4. Synthroid 0.1 mg daily. 5. Magnesium 250 b.i.d. 6. Metoprolol 25 mg twice a day. 7. Potassium supplement 20 mEq daily. 8. Taztia XT 120 mg daily. 9. Vitamin D supplement. ALLERGIES: 1. IODINE. 2. PENICILLIN. SOCIAL HISTORY: The patient is . He lives with his . No history of smoking, alcohol or drug abuse. FAMILY HISTORY: Noncontributory. REVIEW OF SYSTEMS: No recent weight changes. No difficulty with vision or hearing. No runny nose or congestion, but the patient complains of persistent cough. No chest pain. No palpitations. No shortness of breath. GI symptoms as described above. Complains of multiple joint pains. No headaches. No dizziness. No syncope. No localized weakness. No anxiety, no depression. PHYSICAL EXAMINATION: VITAL SIGNS: Temperature is 96.7, pulse is 98, respiration is 23, blood pressure is 135/78, pulse oxygen 93% in room air. GENERAL APPEARANCE: Well developed, well nourished, good body build. The patient mildly distressed. HEAD AND NECK: Ears: Normal tympanic membranes. Mouth: Normal hypopharynx, no exudation, no erythema. Ears: Normal tympanic membranes. There is no carotid bruit. SKIN: Warm and dry with good turgor. LUNGS: Clear to auscultation. No rhonchi or wheezing heard. HEART: Regular S1 and S2. No murmur. No S3 was heard. ABDOMEN: Soft, seems the patient is nontender now and pain free. Colostomy bag is there. Bowel sounds are positive. EXTREMITIES: No edema, and weak peripheral pulses. No signs of DVT. LAB/IMAGING: CT of abdomen and pelvis shows inflammation in the right mid abdomen, differential diagnoses of appendicitis or colitis or diverticulitis, with severely distended small bowel loops. As of 01/25/2017, white blood count is 17.5, hemoglobin is 12.7, hematocrit 39, and platelet count is 389. Sodium is 138, potassium 3.6, chloride is 99, CO2 is 27, BUN is 15, creatinine 0.8, glucose 134. Liver enzymes unremarkable. UA is unremarkable. Blood culture, no growth after 48 hours. The patient is MRSA positive. IMPRESSION: 1. Hypertension. 2. Congestive heart failure. 3. Hypothyroidism. 4. Hyperlipidemia. 5. Chronic appendicitis. PLAN: The patient has been admitted by Dr. Paredes of surgery and was put on IV antibiotics, with observation. We will continue outpatient medications. I will try to change any of them that I can change to IV, since the patient has nausea, and I will follow up the patient in the hospital and will do lab order and check his thyroid too.
[2017-01-26 02:42] VITALS: BP 130/63
[2017-01-26 05:42] VITALS: BP 140/62
--- NOTE | 2017-01-26 07:06 | Progress Note ---
Subjective General doing much better, slept well, pain in abd. controlled, just tender, NG tub was very helpful with nausea, no fever or chills no dyspnea no CP Physical Exam Vital Signs / I&Os Vital Signs Date Time Temp Pulse Resp B/P Pulse O2 O2 Flow FiO2 Ox Delivery Rate 01/26 0542 98.1 76 20 140/62 95 Room Air 01/26 0242 97.5 79 20 130/63 92 Room Air 01/25 2334 80 128/56 95 Room Air 01/25 2246 98.2 83 20 129/55 94 Room Air 01/25 2033 Room Air 01/25 1825 98.2 82 20 130/54 93 01/25 1436 145/59 01/25 1157 97.3 77 20 134/64 99 Room Air 0.0 01/25 0830 Room Air 0.0 I&O 01/26 0000 01/25 1600 01/25 0800 Intake Total 692 907 733 Output Total 3785 2288 1228 Balance -834 -1381 -495 General Appearance No acute distress Lungs Clear to auscultation Cardiovascular Regular rate and rhythm, Normal S1 and S2, No murmurs, gallops, rubs Abdomen Normal bowel sounds (mildly tender in lower abd.), Soft Extremities No edema LAB Results Laboratory Tests 01/26 01/26 0405 0405 Chemistry Plasma Sodium (136 - 145 mmol/L) 136 Plasma Potassium (3.5 - 5.1 mmol/L) 3.8 Plasma Chloride (98 - 107 mmol/L) 102 CO2 (Enzymatic) (21 - 32 mmol/L) 33 BUN (7 - 18 mg/dL) 13 Creatinine (0.6 - 1.3 mg/dL) 0.9 Est GFR ( Amer) (mL/min) >60 Est GFR (Non-Af Amer) (mL/min) >60 Glucose (70 - 110 mg/dL) 142 Plasma Calcium (8.5 - 10.1 mg/dL) 7.8 TSH 3rd Generation (0.30 - 3.74 uIU/mL) 0.558 Hematology WBC (4.5 - 11.5 K/uL) 12.2 RBC (4.50 - 5.90 M/uL) 3.43 Hgb (13.5 - 17.5 gm/dL) 10.2 Hct (41.0 - 53.0 %) 31.2 MCV (80 - 100 fL) 91 MCH (26 - 34 pg) 30 RDW (11.6 - 14.8 %) 14.8 Neut % (Auto) (50 - 75 %) 87.1 Lymph % (Auto) (25 - 40 %) 6.1 Izard % (Auto) (3 - 14 %) 6.2 Eos % (Auto) (0 - 4 %) 0.6 Baso % (Auto) (0 - 2 %) 0 Plt Count, EDTA (150 - 400 K/uL) 287 PUBS MCHC (31 - 37 g/dL) 33 Assessment and Plan Problem List 1. HTN (hypertension) Plan contorlled by medication continue the same 2. CHF (congestive heart failure) Plan stable controlled, continue current meds 3. Appendicitis Plan continue Levaquin and Flagyl, improving 4. Hypothyroidism Plan will check TSH
[2017-01-26 11:57] VITALS: BP 151/59
--- NOTE | 2017-01-26 12:10 | DIAGNOSTIC IMAGING REPORT ---
PROCEDURE: XR CHEST 1 VIEW INDICATION: PICC LINE PLACEMENT. TECHNIQUE: Portable AP view 11:58 am COMPARISON: None. FINDINGS: PICC line tip is at the caval atrial junction. Heart and mediastinum are normal. Thorax is normal. IMPRESSION: 1. PICC line in good position. Results were called to the floor.
[2017-01-26 14:49] VITALS: BP 130/54
[2017-01-26 18:17] VITALS: BP 143/61
[2017-01-26 20:42] VITALS: BP 143/63
[2017-01-27 02:18] VITALS: BP 130/56
[2017-01-27 06:26] VITALS: BP 127/54
--- NOTE | 2017-01-27 07:07 | Progress Note ---
Subjective General doing OK, slept well, no fever or chills, abd pain is much better, no BM yet no dyspnea or cough or chest pain Physical Exam Vital Signs / I&Os Vital Signs Date Time Temp Pulse Resp B/P Pulse O2 O2 Flow FiO2 Ox Delivery Rate 01/27 06 99.0 73 18 127/54 95 Nasal 2.0 Cannula 01/27 0230 94 Nasal 2.0 Cannula 01/27 0218 98.8 72 16 130/56 91 Room Air 01/26 2042 98.1 81 20 143/63 95 Room Air 0.0 01/27 2028 Room Air 01/26 1817 98.2 70 20 143/61 93 01/26 1449 97.7 65 20 130/54 97 01/26 1157 97.7 67 20 151/59 95 Room Air 0.0 I&O 01/27 0000 01/26 1600 01/26 0800 Intake Total 1314 0 1083 Output Total 1859 1474 773 Balance -545 -1474 310 General Appearance No acute distress Lungs Clear to auscultation Cardiovascular Regular rate and rhythm, Normal S1 and S2 Abdomen Soft, mildly tender in RLQ, BS hypoactive Extremities No edema LAB Results Laboratory Tests 01/27 01/27 01/27 01/27 01/27 0425 0425 0425 0425 0400 Chemistry Plasma Sodium (136 - 145 mmol/L) 140 Cancelled Plasma Potassium (3.5 - 5.1 mmol/L) 3.9 Cancelled Plasma Chloride (98 - 107 mmol/L) 102 Cancelled CO2 (Enzymatic) (21 - 32 mmol/L) 33 Cancelled BUN (7 - 18 mg/dL) 12 Cancelled Creatinine (0.6 - 1.3 mg/dL) 0.8 Cancelled Est GFR ( Amer) (mL/min) >60 Cancelled Est GFR (Non-Af Amer) (mL/min) >60 Cancelled Glucose (70 - 110 mg/dL) 145 Cancelled Hemoglobin A1c % (4.5 - 6.2 %) 6.0 Plasma Calcium (8.5 - 10.1 mg/dL) 7.8 Cancelled Plasma Magnesium (1.8 - 2.4 mg/dL) 1.9 Iron (35 - 150 ug/dL) 16 TIBC (260 - 445 ug/dL) 155 Iron Saturation (15 - 50 %) 10 Total Bilirubin (0.0 - 1.0 mg/dL) 0.3 AST (15 - 37 U/L) 21 ALT (12 - 78 U/L) 45 Alkaline Phosphatase (46 - 116 U/L) 70 Total Protein (6.4 - 8.2 g/dL) 6.0 Albumin (3.3 - 5.0 g/dL) 1.9 Hematology WBC (4.5 - 11.5 K/uL) 11.6 Cancelled RBC (4.50 - 5.90 M/uL) 3.30 Cancelled Hgb (13.5 - 17.5 gm/dL) 9.8 Cancelled Hct (41.0 - 53.0 %) 29.9 Cancelled MCV (80 - 100 fL) 91 Cancelled MCH (26 - 34 pg) 30 Cancelled RDW (11.6 - 14.8 %) 14.9 Cancelled Neut % (Auto) (50 - 75 %) 84 Lymph % (Auto) (25 - 40 %) 11 [place] % (Auto) (3 - 14 %) 1 Eos % (Auto) (0 - 4 %) 0 Baso % (Auto) (0 - 2 %) 0 Band Neutrophils % (0 - 8 %) 4 Metamyelocytes % (0 - 1 %) 0 Myelocytes (0 - 1 %) 0 Other Cell Type 0 Plt Count, EDTA (150 - 400 K/uL) 296 Cancelled Hypochromic-Microcytic 2+ PUBS MCHC (31 - 37 g/dL) 33 Cancelled 05/03 1800 Chemistry Plasma Magnesium Cancelled Assessment and Plan Problem List 1. HTN (hypertension) Plan controlled contiue current meds 2. CHF (congestive heart failure) Plan stable, controlled 3. Anemia Plan will start iron supplement, check stool for blood 4. Appendicitis Plan continue Levaquin, Flagyl
[2017-01-27 10:26] VITALS: BP 132/64
[2017-01-27 14:38] VITALS: BP 144/73
[2017-01-27 18:05] VITALS: BP 140/69
[2017-01-27 22:25] VITALS: BP 141/76
[2017-01-28 01:29] VITALS: BP 147/61
--- NOTE | 2017-01-28 06:14 | Progress Note ---
Subjective General Patient awake. Ambulatory. Has not passed any flatus via his ileostomy bag. Denies any abdominal pain. Physical Exam Vital Signs / I&Os Vital Signs Date Time Temp Pulse Resp B/P Pulse O2 O2 Flow FiO2 Ox Delivery Rate 01/28 0129 98.2 78 18 147/61 93 Room Air 01/27 2225 98.1 71 18 141/76 93 Room Air 01/27 2030 Room Air 01/27 1805 97.9 75 16 140/69 95 05 1438 98.2 72 16 144/73 98 / 1026 98.4 63 18 132/64 99 Nasal 2.0 Cannula 01/27 0830 2.0 01/27 0738 2.0 01/27 0626 99.0 73 18 127/54 95 Nasal 2.0 Cannula I&O 01/27 0800 01/27 1600 01/28 0000 Intake Total 1706 0 1594 Output Total 1016 1320 957 Balance 690 -1320 637 General Appearance Oriented X3, No acute distress HEENT Normal exam, nasogastric tube in place Lungs Clear to auscultation Neck No JVD Cardiovascular Regular rate and rhythm Abdomen Soft, No tenderness, No guarding Extremities No edema Skin no peripheral cyanosis Neurological No lateralizing signs Psych/Mental Status Mood normal LAB Results WBC: 11.1. Laboratory Tests 01/28 0420 Chemistry Plasma Sodium (136 - 145 mmol/L) 141 Plasma Potassium (3.5 - 5.1 mmol/L) 3.9 Plasma Chloride (98 - 107 mmol/L) 102 CO2 (Enzymatic) (21 - 32 mmol/L) 30 BUN (7 - 18 mg/dL) 17 Creatinine (0.6 - 1.3 mg/dL) 0.8 Est GFR ( Amer) (mL/min) >60 Est GFR (Non-Af Amer) (mL/min) >60 Glucose (70 - 110 mg/dL) 140 Plasma Calcium (8.5 - 10.1 mg/dL) 7.9 Hematology WBC (4.5 - 11.5 K/uL) 11.8 RBC (4.50 - 5.90 M/uL) 3.37 Hgb (13.5 - 17.5 gm/dL) 10.0 Hct (41.0 - 53.0 %) 30.4 MCV (80 - 100 fL) 90 MCH (26 - 34 pg) 30 RDW (11.6 - 14.8 %) 15.1 Neut % (Auto) (50 - 75 %) 82.6 Lymph % (Auto) (25 - 40 %) 9.4 Saline % (Auto) (3 - 14 %) 5.4 Eos % (Auto) (0 - 4 %) 2.0 Baso % (Auto) (0 - 2 %) 0.6 Plt Count, EDTA (150 - 400 K/uL) 325 PUBS MCHC (31 - 37 g/dL) 33 Assessment and Plan Problem List 1. Small bowel obstruction Plan Patient still distended. Plan is to continue NG suction, TPN and ambulation. We'll get upright abdominal x-ray in a.m. 2. Appendicitis Plan No abdominal pain. White count 11.1. Afebrile. Stable vital signs. We'll continue antibiotics and monitor. 3. Parastomal hernia without obstruction or gangrene Plan No evidence of acute obstruction as a result of his parastomal hernia
[2017-01-28 06:54] VITALS: BP 141/62
--- NOTE | 2017-01-28 07:13 | Progress Note ---
Subjective General doing oK, slept well, still has NG tub on no nausea or vomiting , no abdominal pain, no fever or chills no BM since yesterdy Physical Exam Vital Signs / I&Os Vital Signs Date Time Temp Pulse Resp B/P Pulse O2 O2 Flow FiO2 Ox Delivery Rate 01/28 0654 98.4 72 19 141/62 93 Room Air 01/28 0129 98.2 78 18 147/61 93 Room Air 01/27 2225 98.1 71 18 141/76 93 Room Air 01/27 2030 Room Air 01/27 1805 97.9 75 16 140/69 95 05/04 1438 98.2 72 16 144/73 98 05/ 1026 98.4 63 18 132/64 99 Nasal 2.0 Cannula 01/27 0830 2.0 01/27 0738 2.0 I&O 01/28 0000 01/27 1600 01/27 0800 Intake Total 1594 0 1706 Output Total 957 1320 1016 Balance 637 -1320 690 General Appearance No acute distress Lungs Clear to auscultation Cardiovascular Regular rate and rhythm, Normal S1 and S2, No murmurs, gallops, rubs Abdomen Soft, No tenderness (hypoactive [place] sounds) Extremities No edema LAB Results Laboratory Tests 01/28 0420 Chemistry Plasma Sodium (136 - 145 mmol/L) 141 Plasma Potassium (3.5 - 5.1 mmol/L) 3.9 Plasma Chloride (98 - 107 mmol/L) 102 CO2 (Enzymatic) (21 - 32 mmol/L) 30 BUN (7 - 18 mg/dL) 17 Creatinine (0.6 - 1.3 mg/dL) 0.8 Est GFR ( Amer) (mL/min) >60 Est GFR (Non-Af Amer) (mL/min) >60 Glucose (70 - 110 mg/dL) 140 Plasma Calcium (8.5 - 10.1 mg/dL) 7.9 Hematology WBC (4.5 - 11.5 K/uL) 11.8 RBC (4.50 - 5.90 M/uL) 3.37 Hgb (13.5 - 17.5 gm/dL) 10.0 Hct (41.0 - 53.0 %) 30.4 MCV (80 - 100 fL) 90 MCH (26 - 34 pg) 30 RDW (11.6 - 14.8 %) 15.1 Neut % (Auto) (50 - 75 %) 82.6 Lymph % (Auto) (25 - 40 %) 9.4 [place] % (Auto) (3 - 14 %) 5.4 Eos % (Auto) (0 - 4 %) 2.0 Baso % (Auto) (0 - 2 %) 0.6 Plt Count, EDTA (150 - 400 K/uL) 325 PUBS MCHC (31 - 37 g/dL) 33 Assessment and Plan Problem List 1. HTN (hypertension) Plan controlled continue current meds 2. CHF (congestive heart failure) Plan controlled continue current meds 3. Anemia Plan improved today will monitor 4. Appendicitis Plan on IV Levaquin and Flagyl
[2017-01-28 11:11] VITALS: BP 154/69
[2017-01-28 14:16] VITALS: BP 143/60
--- NOTE | 2017-01-28 16:42 | DIAGNOSTIC IMAGING REPORT ---
PROCEDURE: XR NG TUBE PLACEMENT W/FLUORO INDICATION: SBO TECHNIQUE: Real time fluoroscopy is used to attempt adjustment of indwelling nasogastric tube. Total fluoro time 19.3 minutes. Cumulative dose 6697.26 mGy a single fluoroscopic spot images acquired for documentation. A KUB following final placement of the tube was obtained. COMPARISON: CT abdomen pelvis 01/21/2017 FINDINGS: 0.035 guide wire with a stiff J-tip was inserted through the indwelling nasogastric tube and attempted to be placed into the duodenum. This was unsuccessful. The wire was switched for a 0.035 floppy tip guide wire. The tube tip was guided to the distal stomach but could not be advanced any further. The wire could not be advanced further. The tube is affixed with the tip in the distal stomach and a single fluoroscopic spot image was acquired for documentation. A KUB following the procedure was obtained documenting nasogastric tube position with the tip directed towards the patient's right. There is extensive dilatation of small bowel loops diffusely. Solid stool in the transverse colon is seen. A surgical staple anastomoses in the right lower quadrant is noted. There are degenerative changes throughout the spine and heavy calcification of pelvic vasculature. IMPRESSION: 1. Unsuccessful fluoroscopic guided small bowel tube placement. The tip of the nasogastric tube remains in the distal stomach. 2. Discussed with Dr. Edmonds.
[2017-01-28 16:44] VITALS: BP 134/67
[2017-01-28 20:55] VITALS: BP 147/70
[2017-01-29] VITALS (8 sets, daily range): BP systolic 112–165; BP diastolic 58–69
--- NOTE | 2017-01-29 06:51 | DIAGNOSTIC IMAGING REPORT ---
PROCEDURE: XR ABDOMEN 1 VIEW INDICATION: sbo TECHNIQUE: AP supine view. COMPARISON: NG tube loss 01/28/2017. Multiple markedly dilated loops of small bowel FINDINGS: Multiple markedly dilated loops of bowel, essentially unchanged, with air-fluid levels. There is paucity of gas in the lower pelvis. Stable NG tube in the distal stomach. No masses or unusual calcifications. Moderate degenerative changes of the lumbar spine. Mild left basilar atelectasis/ scarring. IMPRESSION: 1. Stable NG tube in the distal stomach 2. No change in the markedly distended loops of bowel with air-fluid levels. This may represent chronic changes versus bowel obstruction.
--- NOTE | 2017-01-29 07:42 | Progress Note ---
Subjective General Note Date: 01/2017 Admission Date: date January 27, 2017 Hospital Day: Hospital day 3 PCP: Ion Machado MD Status: Fair Advanced Directive: No Code Room: 305 Subjective This is an 81-year-old white male who presented to the hospital with 5 day history of abdominal pain in the right lower quadrant with radition. The patient had no nausea and no vomiting. No fever, no chills. The patient had liquid stool which was in the colostomy bag. Subjective Patient reports that he is feeling better. Still has not been able to eat. The pain is reducing. Patient has not had significant production in his back. Very little coming out of the NGT Physical Exam Vital Signs / I&Os Vital Signs Date Time Temp Pulse Resp B/P Pulse O2 O2 Flow FiO2 Ox Delivery Rate 01/29 0650 98.1 75 19 140/66 95 Room Air 05/06 0221 98.2 82 18 134/58 92 Room Air 05/05 2250 97.5 18 95 Room Air 05/05 2108 Room Air 05/05 2055 75 147/70 05/05 1644 97.7 81 18 134/67 94 05/05 1416 97.7 76 18 143/60 99 05/05 1111 98.8 75 18 154/69 99 Room Air I&O 05/05 0800 05/05 1600 05/06 0000 Intake Total 1395 0 0 Output Total 866 1128 1530 Balance 529 -1128 -1530 General Appearance Oriented X3, Cooperative HEENT EOMI, NGT in place Lungs Normal air movement Abdomen Soft, No guarding Psych/Mental Status Mood normal LAB Results Laboratory Tests 01/29 0415 Chemistry Plasma Sodium (136 - 145 mmol/L) 140 Plasma Potassium (3.5 - 5.1 mmol/L) 3.8 Plasma Chloride (98 - 107 mmol/L) 102 CO2 (Enzymatic) (21 - 32 mmol/L) 31 BUN (7 - 18 mg/dL) 19 Creatinine (0.6 - 1.3 mg/dL) 0.9 Est GFR ( Amer) (mL/min) >60 Est GFR (Non-Af Amer) (mL/min) >60 Glucose (70 - 110 mg/dL) 123 Plasma Calcium (8.5 - 10.1 mg/dL) 7.7 Hematology WBC (4.5 - 11.5 K/uL) 10.3 RBC (4.50 - 5.90 M/uL) 3.26 Hgb (13.5 - 17.5 gm/dL) 9.9 Hct (41.0 - 53.0 %) 29.5 MCV (80 - 100 fL) 91 MCH (26 - 34 pg) 30 RDW (11.6 - 14.8 %) 14.4 Neut % (Auto) (50 - 75 %) 75.4 Lymph % (Auto) (25 - 40 %) 14.1 [place] % (Auto) (3 - 14 %) 7.7 Eos % (Auto) (0 - 4 %) 2.6 Baso % (Auto) (0 - 2 %) 0.2 Plt Count, EDTA (150 - 400 K/uL) 333 PUBS MCHC (31 - 37 g/dL) 34 Assessment and Plan Problem List 1. Small bowel obstruction Plan Bowel obstruction NG tube intermittent suction. Awaiting surgical recommendation on advancement 2. HTN (hypertension) Plan Bllood pressure well controlled changes; continue the IV delivery 3. CHF (congestive heart failure) Plan CHF stable watch of her changes in weight and dyspnea on exertion 4. Hypothyroidism Plan Continue with replacement 5. Hyperlipidemia Plan Stable monitor 6. Anemia Plan monitor the H&H. Current status: Fair, stable Anticipated discharge date: Anticipated discharge in 1-2 days Anticipated discharge placement: Home versus senior care facility Patient care time: Time spent in chart review, patient interview, physical exam, CPOE, and care documentation: 25 minutes Visit to patient today: 2 Complexity of care: High Advance care plan: full code E&M Codes Rounding: Inpt-Moderate/[id number]
--- NOTE | 2017-01-29 10:23 | Progress Note ---
Subjective General 81-year-old male hospital day 7. No shortness of breath or chest pain. No flatus via ileostomy bag. No abdominal pain. Ambulatory. Physical Exam Vital Signs / I&Os Vital Signs Date Time Temp Pulse Resp B/P Pulse O2 O2 Flow FiO2 Ox Delivery Rate 01/29 1021 98.8 75 19 155/69 95 Room Air I&O NG TUBE output: Last 24 hours 775 cc. 01/28 0800 01/28 1600 01/29 0000 Intake Total 1395 0 0 Output Total 866 1128 1530 Balance 529 -1128 -1530 General Appearance Alert, Oriented X3, Cooperative, No acute distress HEENT PERRLA, EOMI, NG tube in place Lungs Clear to auscultation Neck Supple, No JVD, No masses, No thyromegaly Cardiovascular Regular rate and rhythm Abdomen distended. Tympanitic. Ileostomy with no stool or flatus in bag. Parastomal hernia. Abdomen soft palpation. Minimal discomfort. Extremities No edema Skin no peripheral cyanosis Neurological No lateralizing signs Psych/Mental Status Mood normal LAB Results WBC 10.3 Laboratory Tests 01/29 0415 Chemistry Plasma Sodium (136 - 145 mmol/L) 140 Plasma Potassium (3.5 - 5.1 mmol/L) 3.8 Plasma Chloride (98 - 107 mmol/L) 102 CO2 (Enzymatic) (21 - 32 mmol/L) 31 BUN (7 - 18 mg/dL) 19 Creatinine (0.6 - 1.3 mg/dL) 0.9 Est GFR ( Amer) (mL/min) >60 Est GFR (Non-Af Amer) (mL/min) >60 Glucose (70 - 110 mg/dL) 123 Plasma Calcium (8.5 - 10.1 mg/dL) 7.7 Hematology WBC (4.5 - 11.5 K/uL) 10.3 RBC (4.50 - 5.90 M/uL) 3.26 Hgb (13.5 - 17.5 gm/dL) 9.9 Hct (41.0 - 53.0 %) 29.5 MCV (80 - 100 fL) 91 MCH (26 - 34 pg) 30 RDW (11.6 - 14.8 %) 14.4 Neut % (Auto) (50 - 75 %) 75.4 Lymph % (Auto) (25 - 40 %) 14.1 [place] % (Auto) (3 - 14 %) 7.7 Eos % (Auto) (0 - 4 %) 2.6 Baso % (Auto) (0 - 2 %) 0.2 Plt Count, EDTA (150 - 400 K/uL) 333 PUBS MCHC (31 - 37 g/dL) 34 Imaging Yesterday attempt by radiology to position NG tube into the duodenum/jejunum was unsuccessful. A lengthy discussion was had with radiology concerning his CT findings. According to radiology his abdominal small bowel distention, pneumatosis intestinalis, and parastomal hernia appeared to be chronic in nature. The aforementioned findings secondary to previous findings from CT scans and x-rays at [facility]. All changes here appeared to be chronic in nature. Assessment and Plan Problem List 1. Small bowel obstruction Plan Chronic partial versus complete small bowel obstruction. Plan is to continue NG suction, TPN and observation. 2. Parastomal hernia without obstruction or gangrene Plan Parastomal hernia no gross evidence of acute abdomen. May be source of small bowel obstruction. We'll continue to monitor with NG suction and TPN. 3. Appendicitis Plan Patient does not appear to have peritoneal signs. We will continue antibiotic treatment and observation and bowel rest.
[2017-01-30 02:06] VITALS: BP 126/65
--- NOTE | 2017-01-30 06:57 | Progress Note ---
Subjective General Note Date: 01/30/2017 Admission Date: date January 27, 2017 Hospital Day: Hospital day 4 PCP: Ion Machado MD Status: Fair Advanced Directive: Room: 208 Subjective This is an 81-year-old white male who presented to the hospital with 5 day history of abdominal pain in the right lower quadrant with radition. The patient had no nausea and no vomiting. No fever, no chills. The patient had liquid stool which was in the colostomy bag. Subjective Patient has no complaints today. Still with nasogastric tube placement Physical Exam Vital Signs / I&Os Vital Signs Date Time Temp Pulse Resp B/P Pulse O2 O2 Flow FiO2 Ox Delivery Rate 01/30 0206 97.5 80 16 126/65 95 Room Air 05/06 2228 97.5 64 16 149/65 97 Room Air 0.0 / 2032 Room Air 05/ 2031 165/64 05/06 1820 97.7 74 20 144/68 100 Room Air 05/ 1440 97.5 66 20 150/66 99 Room Air 05/ 1021 98.8 75 19 155/69 95 Room Air 05/06 0826 112/59 05/06 0814 95 I&O 05/06 0800 05/06 1600 05/07 0000 Intake Total 1688 2319 Output Total 508 2026 615 Balance 1180 -2026 1704 General Appearance Cooperative, No acute distress Lungs Clear to auscultation Cardiovascular Regular rate and rhythm Skin No Rashes, No Breakdown Assessment and Plan Problem List 1. Appendicitis Plan Continue with antibiotic therapy. No changes 2. HTN (hypertension) Plan Blood pressure well-managed changes 3. CHF (congestive heart failure) Plan History of heart failure. Attempt to monitor him and then optimize. 4. Hypothyroidism Plan Continue on thyroid replacement 5. Hyperlipidemia Plan Lifestyle modification; reviewed recommendations for the statin therapy 6. Anemia Plan Follow-up labs in the a.m. Current status: Fair, stable Anticipated discharge date: Anticipated discharge in 2 days Anticipated discharge placement: Home with home care Patient care time: Time spent in chart review, patient interview, physical exam, CPOE, and care documentation: 25 minutes Visit to patient today: 1 Complexity of care: Mild Initial patient evaluation: Emergency department consultation General surgery DVT prophylaxis: Lovenox
[2017-01-30 07:47] VITALS: BP 121/57
--- NOTE | 2017-01-30 10:28 | Progress Note ---
Subjective General 81-year-old male hospital day 8 from chronic small bowel/partial small bowel traction. Asymptomatic. He states he's passed some flatus. His ileostomy bag. Minimal abdominal complaints. Physical Exam Vital Signs / I&Os Vital Signs Date Time Temp Pulse Resp B/P Pulse O2 O2 Flow FiO2 Ox Delivery Rate I&O NG tube output approximately 1275 in the last 24 hours. 05/06 0800 05/06 1600 05/ 0000 Intake Total 1688 2319 Output Total 508 6 615 Balance 1180 -2026 1704 Lungs Clear to auscultation Cardiovascular Regular rate and rhythm Abdomen Normal bowel sounds, Soft, very distended and tympanitic Extremities No cyanosis, No edema Skin warm and dry Neurological No lateralizing signs Psych/Mental Status Mood normal Assessment and Plan Problem List 1. Appendicitis Plan Appendicitis appears to be under control and slowly resolving with antibiotics. Continue observation 2. Small bowel obstruction Plan Chronic small bowel obstruction versus partial chronic small bowel obstruction. Unchanged. Continue observation. Continue TPN.
[2017-01-30 11:49] VITALS: BP 139/67
[2017-01-30 14:28] VITALS: BP 139/72
[2017-01-30 18:44] VITALS: BP 150/76
[2017-01-30 22:15] VITALS: BP 136/74
[2017-01-31] VITALS (8 sets, daily range): BP systolic 103–139; BP diastolic 58–74
--- NOTE | 2017-01-31 07:11 | Progress Note ---
Subjective General Note Date: 01/31/2017 Admission Date: date January 27, 2017 Hospital Day: Hospital day 5 PCP: Ion Machado MD Status: Fair Advanced Directive: Room: 208 Subjective This is an 81-year-old white male who presented to the hospital with 5 day history of abdominal pain in the right lower quadrant with radition. The patient had no nausea and no vomiting. No fever, no chills. The patient had liquid stool which was in the colostomy bag. Subjective Patient has no complaints today. Patient has nasogastric tube placement. Surgeries been following and adjusting for needs. Patient requests None Constitutional Denies: Sweats. Eyes Denies: Redness. Physical Exam Vital Signs / I&Os Vital Signs Date Time Temp Pulse Resp B/P Pulse O2 O2 Flow FiO2 Ox Delivery Rate 01/31 0614 98.8 79 13 133/70 93 Room Air 01/31 0207 98.1 77 18 121/60 94 Room Air / 2215 98.1 71 18 136/74 94 Room Air 01/30 2100 Room Air 0.0 01/30 1844 97.7 72 16 150/76 96 Room Air / 1428 97.3 66 20 139/72 96 Room Air / 1149 98.1 73 20 139/67 96 Room Air / 0747 97.9 73 19 121/57 94 Room Air I&O 01/30 0800 01/30 1600 01/31 0000 Intake Total 1014 0 1591 Output Total 534 1355 660 Balance 480 -1355 931 General Appearance Cooperative, No acute distress HEENT nasogastric tube in place Lungs Normal air movement Cardiovascular No murmurs, gallops, rubs Abdomen Soft LAB Results Laboratory Tests 01/31 0420 Chemistry Plasma Sodium (136 - 145 mmol/L) 140 Plasma Potassium (3.5 - 5.1 mmol/L) 4.0 Plasma Chloride (98 - 107 mmol/L) 102 CO2 (Enzymatic) (21 - 32 mmol/L) 30 BUN (7 - 18 mg/dL) 23 Creatinine (0.6 - 1.3 mg/dL) 0.9 Est GFR ( Amer) (mL/min) >60 Est GFR (Non-Af Amer) (mL/min) >60 Glucose (70 - 110 mg/dL) 125 Plasma Calcium (8.5 - 10.1 mg/dL) 7.9 Phosphorus (2.5 - 4.9 mg/dL) 3.5 Plasma Magnesium (1.8 - 2.4 mg/dL) 2.2 Total Bilirubin (0.0 - 1.0 mg/dL) 0.2 AST (15 - 37 U/L) 15 ALT (12 - 78 U/L) 27 Alkaline Phosphatase (46 - 116 U/L) 66 Total Protein (6.4 - 8.2 g/dL) 6.3 Albumin (3.3 - 5.0 g/dL) 2.2 Assessment and Plan Problem List 1. Appendicitis Plan Antibiotics continue. Continue to follow and watch the changes. 2. HTN (hypertension) Plan Blood pressure is been well controlled. No changes 3. CHF (congestive heart failure) Plan CHF on appropriate management. 4. Hypothyroidism Plan Continue with the thyroid replacement. 5. Anemia Plan Stable anemia. Continue with the nutritional support. Current status: Fair, stable Anticipated discharge date: Anticipated discharge in 2 days Anticipated discharge placement: Home with home care Patient care time: Time spent in chart review, patient interview, physical exam, CPOE, and care documentation: 25 minutes Visit to patient today: 1 Complexity of care: Mild Initial patient evaluation: Emergency department consultation General surgery DVT prophylaxis: Lovenox E&M Codes Rounding: Inpt-Moderate/[id number]
--- NOTE | 2017-01-31 13:56 | Progress Note ---
Subjective General No new complaints, abdomen is not sore. He reports flatus from the stoma. NG is still in place. Physical Exam Vital Signs / I&Os Vital Signs Date Time Temp Pulse Resp B/P Pulse O2 O2 Flow FiO2 Ox Delivery Rate 01/31 1035 97.5 80 18 103/61 94 Room Air 01/31 0614 98.8 79 13 133/70 93 Room Air 01/31 0207 98.1 77 18 121/60 94 Room Air 01/30 2215 98.1 71 18 136/74 94 Room Air 01/30 2100 Room Air 0.0 01/30 1844 97.7 72 16 150/76 96 Room Air 01/30 1428 97.3 66 20 139/72 96 Room Air I&O 01/30 0800 01/30 1600 01/31 0000 Intake Total 1014 0 1591 Output Total 534 1355 660 Balance 480 -1355 931 General Appearance Alert, Oriented X3, Cooperative Abdomen Normal bowel sounds, Soft, stable moderate tympany Assessment and Plan Problem List 1. Appendicitis 2. Small bowel obstruction Plan gastrograffin UGI tommorow continue TPN and NG for now
[2017-02-01 02:11] VITALS: BP 123/54
[2017-02-01 07:08] VITALS: BP 120/56
--- NOTE | 2017-02-01 07:12 | Progress Note ---
Subjective General Note Date: 02/01/2017 Admission Date: date January 27, 2017 Hospital Day: Hospital day 6 PCP: Ion Machado MD Status: Fair Advanced Directive: Room: 208 Subjective This is an 81-year-old white male who presented to the hospital with 5 day history of abdominal pain in the right lower quadrant with radition. The patient had no nausea and no vomiting. No fever, no chills. The patient had liquid stool which was in the colostomy bag. Subjective Gastrografin follow-through today. Patient is not uncomfortable patient reports that he is feeling relatively well No abdominal complaints. Physical Exam Vital Signs / I&Os Vital Signs Date Time Temp Pulse Resp B/P Pulse O2 O2 Flow FiO2 Ox Delivery Rate 02/01 0708 97.5 78 16 120/56 93 Room Air 0.0 / 0211 97.9 76 16 123/54 95 Room Air /09 0128 Room Air 05/08 2040 Room Air 05/08 2037 74 16 119/58 95 Room Air 05/08 1907 97.9 75 16 138/74 95 Room Air 05/08 1440 97.3 75 20 139/68 95 Room Air 05/08 1035 97.5 80 18 103/61 94 Room Air I&O 05/08 0800 05/08 1600 05/09 0000 Intake Total 9814 651 7568 Output Total 1157 1688 756 Balance 652 -1113 327 General Appearance Oriented X3, nasogastric tube in place Lungs Clear to auscultation Cardiovascular Regular rate and rhythm Psych/Mental Status Mood normal Assessment and Plan Problem List 1. Anemia Plan Monitor anemia panel. 2. CHF (congestive heart failure) Plan Continue with the sampling of the vitals. Optimize cardiac function. 3. HTN (hypertension) Plan Blood pressure well preserved. 4. Appendicitis Plan Antibiotics are continued. May consider stopping antibiotics based on the new study. 5. Small bowel obstruction Plan Gastrografin follow-through today. Waiting for the results Current status: Fair, stable Anticipated discharge date: Anticipated discharge in 2-3 days Anticipated discharge placement: Home with home care Patient care time: Time spent in chart review, patient interview, physical exam, CPOE, and care documentation: 25 minutes Visit to patient today: Complexity of care: Initial patient evaluation: Emergency department consultation General surgery DVT prophylaxis: Lovenox E&M Codes Rounding: Inpt-Moderate/15208
--- NOTE | 2017-02-01 07:49 | Progress Note ---
Subjective General Pt. was sleeping comfortably. He reported no pain when he was woken up. Physical Exam Vital Signs / I&Os Vital Signs Date Time Temp Pulse Resp B/P Pulse O2 O2 Flow FiO2 Ox Delivery Rate 02/01 0708 97.5 78 16 120/56 93 Room Air 0.0 02/01 0211 97.9 76 16 123/54 95 Room Air 02/01 0128 Room Air 01/31 2040 Room Air 01/31 2037 74 16 119/58 95 Room Air 01/31 1907 97.9 75 16 138/74 95 Room Air 01/31 1440 97.3 75 20 139/68 95 Room Air 01/31 1035 97.5 80 18 103/61 94 Room Air I&O 01/31 0800 01/31 1600 02/01 0000 Intake Total 7007 698 7197 Output Total 1157 1688 756 Balance 652 -1113 327 General Appearance Alert, Oriented X3, Cooperative Abdomen Normal bowel sounds, Soft, No tenderness, moderately bloated, no tenderness in koby stomal area. Assessment and Plan Problem List 1. Appendicitis 2. Small bowel obstruction Plan small bowel follow through today.
--- NOTE | 2017-02-01 07:49 | Progress Note ---
Subjective General Pt. was sleeping comfortably. He reported no pain when he was woken up. Physical Exam Vital Signs / I&Os Vital Signs Date Time Temp Pulse Resp B/P Pulse O2 O2 Flow FiO2 Ox Delivery Rate 02/01 0708 97.5 78 16 120/56 93 Room Air 0.0 02/01 0211 97.9 76 16 123/54 95 Room Air 02/01 0128 Room Air 01/31 2040 Room Air 01/31 2037 74 16 119/58 95 Room Air 01/31 1907 97.9 75 16 138/74 95 Room Air 01/31 1440 97.3 75 20 139/68 95 Room Air 01/31 1035 97.5 80 18 103/61 94 Room Air I&O 01/31 0800 01/31 1600 02/01 0000 Intake Total 9599 468 5588 Output Total 1157 1688 756 Balance 652 -1113 327 General Appearance Alert, Oriented X3, Cooperative Abdomen Normal bowel sounds, Soft, No tenderness, moderately bloated, no tenderness in koby stomal area. Assessment and Plan Problem List 1. Appendicitis 2. Small bowel obstruction Plan small bowel follow through today.
[2017-02-01 09:54] VITALS: BP 125/55
--- NOTE | 2017-02-01 11:11 | DIAGNOSTIC IMAGING REPORT ---
PROCEDURE: CT ABDOMEN/PELVIS W/O CONTRAST INDICATION: POSSIBLE SBO, NON CONTRAST, ALLERGY TECHNIQUE: Noncontrast axial images were obtained of the entire abdomen and pelvis with sagittal and coronal reformations. COMPARISON: CT abdomen/pelvis 01/21/2017. FINDINGS: ABDOMEN: NG tube in place in a decompressed stomach. Left lower quadrant ostomy with small bowel containing peristomal hernia. Slight progression of markedly dilated small bowel in the mid abdomen (diameter 8.6 cm, previously 7.4 cm) and the right upper quadrant. Nondilated proximal small bowel. Improved pneumatosis intestinalis in the right upper quadrant. Mildly improved right lower quadrant inflammatory changes with dilated appendix (9 mm) and cecal wall thickening. There is improved trace fluid in the right pericolic gutter. Right lower quadrant of stenosis. Liver, gallbladder, pancreas, spleen and adrenal glands are normal. Bilateral renal cysts. Severe atherosclerosis of the aorta. PELVIS: 6.5 cm perirectal cystic mass with thickened irregular paz and ill-defined adjacent fat planes with in tiny air collections. There is no bony destruction. There is posterior retraction of the iliac vessels. Findings suggestive of a TURP. Bladder is unremarkable. No free air. Moderate degenerative changes of the spine. IMPRESSION: 1. Improved right lower quadrants inflammatory changes suggestive of improving colitis or appendicitis. 2. 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 Interval mild progression of markedly distended small bowel suspicious for an acute obstruction at the level of the stoma. 3. Improved pneumatosis intestinalis in the right upper quadrant 4. Cystic perirectal mass, unchanged, in patient with a known history of rectal cancer 5. Results discussed Dr. Paredes All CT scans at this facility use dose modulation, iterative reconstruction, and/or weight-based dosing when appropriate to reduce radiation dose to as low as reasonably achievable.
[2017-02-01 14:04] VITALS: BP 126/69
[2017-02-01 19:42] VITALS: BP 134/65
[2017-02-01 22:41] VITALS: BP 125/52
[2017-02-02 02:44] VITALS: BP 136/58
--- NOTE | 2017-02-02 06:27 | Progress Note ---
Subjective General Note Date: 02/01/2017 Admission Date: date January 27, 2017 Hospital Day: Hospital day 6 PCP: Ion Machado MD Status: Fair Advanced Directive: Room: 208 Subjective This is an 81-year-old white male who presented to the hospital with 5 day history of abdominal pain in the right lower quadrant with radition. The patient had no nausea and no vomiting. No fever, no chills. The patient had liquid stool which was in the colostomy bag. Subjective Patient reports that he had a full colostomy bag was noted having further gas formation. Requests Asking about discharge Physical Exam Vital Signs / I&Os Vital Signs Date Time Temp Pulse Resp B/P Pulse O2 O2 Flow FiO2 Ox Delivery Rate 02/02 0244 97.3 78 18 136/58 95 Room Air 02/01 2241 97.5 71 18 125/52 94 Room Air 02/01 2032 Room Air 02/01 1942 97.3 68 18 134/65 97 Room Air 0.0 02/01 1404 97.5 68 16 126/69 97 Room Air 0.0 02/01 0954 97.5 68 16 125/55 97 Room Air 0.0 02/01 0708 97.5 78 16 120/56 93 Room Air 0.0 I&O 02/01 0800 / 1600 02/02 0000 Intake Total 1803 0 1570 Output Total 1004 1417 786 Balance 799 -1417 784 General Appearance NG tube in place Very pleasant HEENT EOMI Neck Supple Cardiovascular Regular rate and rhythm, Normal S1 and S2 Abdomen Soft, colostomy bag in place Imaging CT abd/pelvis 02/01/17 IMPRESSION: 1. Improved right lower quadrants inflammatory changes suggestive of improving colitis or appendicitis. 2. 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 Interval mild progression of markedly distended small bowel suspicious for an acute obstruction at the level of the stoma. 3. Improved pneumatosis intestinalis in the right upper quadrant 4. Cystic perirectal mass, unchanged, in patient with a known history of rectal cancer Assessment and Plan Problem List 1. CHF (congestive heart failure) Plan Stable weight no volume shifts. Lungs are clear Optimize 2. HTN (hypertension) Plan Normalized blood pressures 3. Anemia Plan Stabilized. Continue with the nutritional support 4. Appendicitis Plan Awaiting recommendations from surgery appendicitis and treatment 5. Small bowel obstruction Plan Appears to be improving on CT imaging. Patient passing stool through the colostomy Plans to start magnesium citrate for evacuation Current status: Fair, stable Anticipated discharge date: Anticipated discharge Anticipated discharge placement: Home with home care Patient care time: Time spent in chart review, patient interview, physical exam, CPOE, and care documentation: 25 minutes Visit to patient today: Complexity of care: Mild Initial patient evaluation: Emergency department consultation DVT prophylaxis: Lovenox GI prohylaxis E&M Codes Rounding: Inpt-Moderate/12136
[2017-02-02 07:30] VITALS: BP 118/51
[2017-02-02 10:52] VITALS: BP 108/54
--- NOTE | 2017-02-02 13:18 | Progress Note ---
Subjective General Pt. resting and without pain. He reports more stool and gas in the colostomy bag. He still has the NG tube and has bilious fluid production. Physical Exam Vital Signs / I&Os Vital Signs Date Time Temp Pulse Resp B/P Pulse O2 O2 Flow FiO2 Ox Delivery Rate 02/02 1052 97.9 81 18 108/54 96 Room Air 02/02 0730 98.2 72 18 118/51 96 Room Air 0.0 02/02 0244 97.3 78 18 136/58 95 Room Air 02/01 2241 97.5 71 18 125/52 94 Room Air 02/01 2032 Room Air 02/01 1942 97.3 68 18 134/65 97 Room Air 0.0 02/01 1404 97.5 68 16 126/69 97 Room Air 0.0 I&O 02/01 0800 02/01 1600 02/02 0000 Intake Total 1803 0 1570 Output Total 1004 1417 786 Balance 799 -1417 784 General Appearance Alert, Oriented X3, Cooperative Abdomen Normal bowel sounds, Soft, still gassy and tympanitic, new stool in colostomy bag. Assessment and Plan Problem List 1. Parastomal hernia without obstruction or gangrene 2. Small bowel obstruction Plan CT shows improved appy but still shows sbo. Clinically he is opening up a bit. SBFT not done due to iodine allergy. Will try Mag citrate to see if something goes through.
[2017-02-02 14:40] VITALS: BP 126/64
[2017-02-02 18:05] VITALS: BP 128/62
[2017-02-02 22:45] VITALS: BP 126/60
[2017-02-03] VITALS (7 sets, daily range): BP systolic 109–138; BP diastolic 52–70
--- NOTE | 2017-02-03 06:17 | Progress Note ---
Subjective General 81-year-old male hospital day 13. Yesterday had CAT scan of his abdomen showing progressive dilation of mid small bowel. Yesterday was administered magnesium citrate, patient states that he had a lot of output from his colostomy site. Not complaining of any abdominal pain. Physical Exam Vital Signs / I&Os Vital Signs Date Time Temp Pulse Resp B/P Pulse O2 O2 Flow FiO2 Ox Delivery Rate 02/03 0231 98.1 77 18 117/52 92 Room Air 0.0 I&O 02/02 0800 02/02 1600 02/03 0000 Intake Total 0 2051 515 Output Total 1155 928 965 Balance -1155 1123 -450 General Appearance Alert, Oriented X3, Cooperative, No acute distress HEENT PERRLA, EOMI, NG tube in place Lungs Clear to auscultation Cardiovascular Regular rate and rhythm Abdomen distended tympanitic. Hypoactive bowel sounds. Nontender to palpation Extremities No clubbing, No edema Skin warm and dry Neurological No lateralizing signs Psych/Mental Status Mood normal LAB Results Laboratory Tests 02/03 02/03 0500 0555 Chemistry Plasma Sodium Pending Plasma Potassium Pending Plasma Chloride Pending CO2 (Enzymatic) Pending BUN Pending Creatinine Pending Est GFR ( Amer) Pending Est GFR (Non-Af Amer) Pending Glucose Pending Plasma Calcium Pending Phosphorus Cancelled Pending Plasma Magnesium Cancelled Pending Assessment and Plan Problem List 1. Small bowel obstruction Plan Patient has chronic partial small bowel obstruction. The fact that he was administered magnesium citrate yesterday and had a stool via his colostomy would indicate that. Patient continues to have quite a distended tympanic abdomen. We'll continue present management.
--- NOTE | 2017-02-03 07:43 | Progress Note ---
Subjective General Note Date: February 03, 2017 Admission Date: January 22, 2017 Hospital Day: 13 PCP: Ion Machado MD Status: Inpatient, ACU Advanced Directive: FULL CODE Room: 208 Subjective This is an 81-year-old white male with a significant past medical history of hypertension, hypothyroidism, hyperlipidemia, degenerative joint disease, sleep apnea, prostate CA, cerebrovascular disease status post CVA, CHF, who presented to [facility] emergency department with complaints of abdominal pain. [facility] ER evaluation was consistent with acute appendicitis. The patient was admitted by Dr. Lester Paredes later requested consultation by the hospitalist service to provide medical management. Secondary to the above, the patient was seen in consultation by [facility] on January 25, 2017. For other history present illness, past medical history, family history, social history, review of systems, and admission physical examination please see the patient's history and physical examination and ER visit note in the patient's medical record. Subjective The patient states he is doing well today. No specific complaints at this time. Patient looking for to discharge soon. Patient requests None Medications and Allergies Medications Current Medications Sig/Ivone Start time Last Medication Dose Route Stop Time Status Admin Ferrous Sulfate 325 MG BID 01/27 0900 AC 02/02 PTUBE 2011 Levothyroxine Sodium 50 MCG 0600 01/27 0600 AC 02/03 IV 0556 Metoprolol Tartrate 5 MG Q6H 01/26 2015 AC 02/03 IV 0209 Amino Acids/ 1,000 ML .BY DURATION 01/26 1500 AC 0510 Electrolytes/Dextrose IV 0704 Dextrose/Sodium 1,000 ML ASDIRECTED 01/26 1500 AC 02/02 Chloride/Electrolyt IV 0617 Fat Emulsion 250 ML Q24H 01/26 1500 AC 02/02 Intravenous IV 1448 Multivitamins 10 ML .BY DURATION 01/26 1500 AC 05/ Trace Metals 1 ML IV 2107 Amino Acids/ 1,000 ML Electrolytes/Dextrose Promethazine HCl 25 MG Q4H PRN 05 1045 AC IV Ondansetron HCl See Dose Q8H PRN / 0800 AC 01/25 Insts (1) IV 0951 Metronidazole/Sodium 100 ML Q8HR 05/ 2200 AC 05/11 Chloride IV 0556 Levofloxacin/Dextrose 100 ML 1200 05/01 1630 AC 05/10 IV 1151 Morphine Sulfate 4 MG Q1H PRN 01/24 1200 AC IV Morphine Sulfate 2 MG Q1H PRN 01/24 1200 AC 01/26 IV 1025 Acetaminophen 650 MG Q6H PRN 01/21 2215 AC PO Dose Instructions: (1)Ondansetron HCl: 4 - 8 MG Allergies Coded Allergies: Iodinated Diagnostic Agents (Severe, has to have steroids to tolerate contrast 01/24/17) Penicillins (Mild, Rash 01/21/17) Physical Exam Vital Signs / I&Os Vital Signs Date Time Temp Pulse Resp B/P Pulse O2 O2 Flow FiO2 Ox Delivery Rate 02/03 0707 98.2 77 20 120/54 94 Room Air 0.0 02/03 0231 98.1 77 18 117/52 92 Room Air 02/02 2245 98.1 70 16 126/60 95 Room Air 02/02 2013 0.0 02/02 1805 97.9 72 72 128/62 94 Room Air 02/02 1440 97.5 76 18 126/64 94 Room Air 02/02 1052 97.9 81 18 108/54 96 Room Air I&O 02/03 0000 02/02 1600 02/02 0800 Intake Total 515 2051 0 Output Total 522 940 4715 Balance -450 1123 -1155 General Appearance Alert, Cooperative, No acute distress Lungs Normal air movement, Scattered rhonchi. Cardiovascular Regular rate and rhythm, Normal S1 and S2 Abdomen Distended, no significant tenderness. Extremities No cyanosis, No clubbing, No edema Neurological Cranial nerves intact, No lateralizing signs LAB Results Laboratory Tests 02/03 02/03 0555 0500 Chemistry Plasma Sodium (136 - 145 mmol/L) 140 Plasma Potassium (3.5 - 5.1 mmol/L) 4.5 Plasma Chloride (98 - 107 mmol/L) 105 CO2 (Enzymatic) (21 - 32 mmol/L) 28 BUN (7 - 18 mg/dL) 24 Creatinine (0.6 - 1.3 mg/dL) 0.9 Est GFR ( Amer) (mL/min) >60 Est GFR (Non-Af Amer) (mL/min) >60 Glucose (70 - 110 mg/dL) 102 Plasma Calcium (8.5 - 10.1 mg/dL) 7.9 Phosphorus (2.5 - 4.9 mg/dL) 3.7 Cancelled Plasma Magnesium (1.8 - 2.4 mg/dL) 2.[address] Scan Abdomen IMPRESSION: 1. Improved right lower quadrants inflammatory changes suggestive of improving colitis or appendicitis. 2. 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 Interval mild progression of markedly distended small bowel suspicious for an acute obstruction at the level of the stoma. 3. Improved pneumatosis intestinalis in the right upper quadrant 4. Cystic perirectal mass, unchanged, in patient with a known history of rectal cancer 5. Results discussed Dr. Paredes Dictated by: KIRSTIN TAYLOR MD D: MOOSE;02/01/17 1111 Assessment and Plan Problem List 1. CHF (congestive heart failure) Plan -Stable -No findings of CHF at this time. -Check BNP -Continue beta viry. -Review previous records regarding cardiac workup. If no recent echocardiogram we'll check echocardiogram. -Patient not on KYA inhibitor, diuretics at time of admission. -Low-salt diet when taking well orally -Monitor 2. HTN (hypertension) Plan -Patient with history of hypertension -Blood pressure well controlled at this time. -BP 120/54 mmHg this a.m. -Low-salt diet when taking well orally -Continue outpatient medical regimen taking well orally 3. Anemia Plan -Patient with findings of mild anemia. -H&H 10.2/31.4 today. MCV 92 -Iron studies consistent with iron deficiency anemia. Iron percent saturation 10% on January 27, 2017 -Continue ferrous sulfate 325 mg by mouth 3 times a day. -Consider IV iron if unable to take oral iron - vitamin when not receiving IV multivitamin 4. Appendicitis Plan -Patient with findings of appendicitis -Day 11 of Levaquin/Flagyl -Discussed with surgery on recommended discontinuation date -Patient afebrile -WBC within normal limits -CT scan shows improvement in inflammatory changes right lower quadrant. -Monitor 5. Small bowel obstruction Plan -See Dr. Edmonds's notes -CT scan shows findings suggestive of small bowel obstruction at site of left lower quadrant ostomy/parastomal hernia. -Follow per surgery -We'll discuss whether medication should remain IV versus by mouth. -Patient with multiple bowel movements status post use of make citrate yesterday which would be inconsistent with small bowel obstruction. 6. Hypothyroidism Plan -Patient with history of hypothyroidism -Patient remains on IV Synthroid -Monitor -Discussed switch to oral medications with surgery Current status: Fair, improved Anticipated discharge date: Per surgical staff Anticipated discharge placement: Per surgical staff Patient care time: Time spent in chart review, patient interview, physical exam, CPOE, and care documentation: 25 minutes Visit to patient today: 1 Complexity of care: Moderate E&M Codes Rounding: Inpt-Moderate/29837
[2017-02-04 03:03] VITALS: BP 125/59
--- NOTE | 2017-02-04 06:11 | Progress Note ---
Subjective General 81-year-old male hospital day 14. No shortness of breath or chest pain. Patient states it is putting out a little flatus out of his colostomy and has had bowel movements through there as well. Ambulatory Physical Exam Vital Signs / I&Os NG output at least 400 cc over 24 hours Vital Signs Date Time Temp Pulse Resp B/P Pulse O2 O2 Flow FiO2 Ox Delivery Rate 02/04 0303 98.1 68 18 125/59 95 Room Air 02/04 0100 Room Air 02/03 2215 97.9 68 18 124/62 95 Room Air 02/03 1851 97.3 73 18 138/60 94 Room Air 0.0 02/03 1611 Room Air 0.0 02/03 1531 97.3 65 18 132/70 96 Room Air 0.0 02/03 1104 97.9 67 20 109/59 94 Room Air 0.0 02/03 1007 97 02/03 0707 98.2 77 20 120/54 94 Room Air 0.0 I&O 02/03 0800 02/03 1600 02/04 0000 Intake Total 1831 1130 1188 Output Total 991 1545 1464 Balance 840 -415 -276 General Appearance Alert, Oriented X3, Cooperative, No acute distress HEENT PERRLA, EOMI, Moist mucous membranes, nasogastric tube in place Lungs Clear to auscultation Neck Supple, No JVD Cardiovascular Regular rate and rhythm Abdomen Soft, distended. Tympanitic. High-pitched bowel sounds. Extremities No edema Skin warm and dry Neurological No lateralizing signs Psych/Mental Status Mood normal Assessment and Plan Problem List 1. Small bowel obstruction Plan Patient passing flatus and having bowel movements. Chronic partial small bowel obstruction. Continue present management. 2. Appendicitis Plan According to CT scan of the inflammatory process in the right lower quadrant is slowly resolving. We will continue him on antibiotics and conservative treatment.
[2017-02-04 06:52] VITALS: BP 123/63
--- NOTE | 2017-02-04 07:00 | Progress Note ---
Subjective General Note Date: February 04, 2017 Admission Date: January 22, 2017 Hospital Day: 14 PCP: Ion Machado MD Status: Inpatient, ACU Advanced Directive: FULL CODE Room: 208 Subjective This is an 81-year-old white male with a significant past medical history of hypertension, hypothyroidism, hyperlipidemia, degenerative joint disease, sleep apnea, prostate CA, cerebrovascular disease status post CVA, CHF, who presented to [facility] emergency department with complaints of abdominal pain. [facility] ER evaluation was consistent with acute appendicitis. The patient was admitted by Dr. Lester Paredes later requested consultation by the hospitalist service to provide medical management. Secondary to the above, the patient was seen in consultation by Saint Swenson on January 25, 2017. For other history present illness, past medical history, family history, social history, review of systems, and admission physical examination please see the patient's history and physical examination and ER visit note in the patient's medical record. Subjective The patient states he is doing well today. Denies shortness of breath. No abdominal pain. Patient requests None Medications and Allergies Medications Current Medications Sig/Ivone Start time Last Medication Dose Route Stop Time Status Admin Ferrous Sulfate 325 MG TID 02/03 2200 AC 02/04 PTUBE 0634 Levothyroxine Sodium 50 MCG 0600 01/27 0600 AC 02/04 IV 0640 Metoprolol Tartrate 5 MG Q6H 01/26 2015 AC 02/04 IV 0244 Amino Acids/ 1,000 ML .BY DURATION 01/26 1500 AC 02/03 Electrolytes/Dextrose IV 1159 Dextrose/Sodium 1,000 ML ASDIRECTED 01/26 1500 AC 02/03 Chloride/Electrolyt IV 2348 Fat Emulsion 250 ML Q24H 01/26 1500 AC 02/03 Intravenous IV 1535 Multivitamins 10 ML .BY DURATION 01/26 1500 AC 02/04 Trace Metals 1 ML IV 0244 Amino Acids/ 1,000 ML Electrolytes/Dextrose Promethazine HCl 25 MG Q4H PRN 01/25 1045 AC IV Ondansetron HCl See Dose Q8H PRN / 0800 AC 01/25 Insts (1) IV 0951 Metronidazole/Sodium 100 ML Q8HR / 2200 AC 05/ Chloride IV 0634 Levofloxacin/Dextrose 100 ML 1200 05/01 1630 AC 02/03 IV 1300 Morphine Sulfate 4 MG Q1H PRN 01/24 1200 AC IV Morphine Sulfate 2 MG Q1H PRN 01/24 1200 AC 01/26 IV 1025 Acetaminophen 650 MG Q6H PRN 01/21 2215 AC PO Dose Instructions: (1)Ondansetron HCl: 4 - 8 MG Allergies Coded Allergies: Iodinated Diagnostic Agents (Severe, has to have steroids to tolerate contrast 01/24/17) Penicillins (Mild, Rash 01/21/17) Physical Exam Vital Signs / I&Os Vital Signs Date Time Temp Pulse Resp B/P Pulse O2 O2 Flow FiO2 Ox Delivery Rate 02/04 0652 98.4 77 18 123/63 93 Room Air 0.0 02/04 0303 98.1 68 18 125/59 95 Room Air 02/04 0100 Room Air 02/03 2215 97.9 68 18 124/62 95 Room Air 02/03 1851 97.3 73 18 138/60 94 Room Air 0.0 02/03 1611 Room Air 0.0 02/03 1531 97.3 65 18 132/70 96 Room Air 0.0 02/03 1104 97.9 67 20 109/59 94 Room Air 0.0 02/03 1007 97 02/03 0707 98.2 77 20 120/54 94 Room Air 0.0 I&O 02/04 0000 02/03 1600 02/03 0800 Intake Total 1188 1130 1831 Output Total 1464 1545 991 Balance -276 -415 840 General Appearance Alert, Oriented X3, Cooperative, No acute distress Lungs Clear to auscultation Cardiovascular Regular rate and rhythm, Normal S1 and S2 Abdomen Normal bowel sounds, Soft, mild distension Extremities No cyanosis, No clubbing Neurological Cranial nerves intact, No lateralizing signs Psych/Mental Status Mental status normal, Mood normal Assessment and Plan Problem List 1. CHF (congestive heart failure) Plan -No evidence of CHF at this time. -Echo cardiac exam shows normal left ventricular ejection fraction. -Heavily calcified aortic valve with no evidence of significant stenosis -Monitor 2. HTN (hypertension) Plan -Blood pressure well controlled. -BP this a.m. 123/63 mmHg -Monitor 3. Anemia Plan -Patient with findings of iron deficiency anemia -H&H yesterday 10.2/31.4 -Ferrous sulfate 325 mg by mouth 3 times a day -Monitor 4. Appendicitis Plan -Follow per surgery -Antimicrobials per surgery 5. Small bowel obstruction Plan -Follow per surgery 6. Hypothyroidism Plan -Continue IV Synthroid Current status: Fair, stable Anticipated discharge date: Per surgical staff Anticipated discharge placement: Per surgical staff Patient care time: Time spent in chart review, patient interview, physical exam, CPOE, and care documentation: 25 minutes Visit to patient today: 1 Complexity of care: Moderate E&M Codes Rounding: Inpt-Moderate/[id number]
[2017-02-04 10:18] VITALS: BP 98/57
--- NOTE | 2017-02-04 11:43 | DIAGNOSTIC IMAGING REPORT ---
REFERRING PHYSICIAN/PROVIDER: Guzman Sanabria MD CONSULTING [employer] AND [employer]ISHER: Duy Salinas MD INDICATION: CHF Procedure: A two-dimensional transthoracic echocardiogram with color flow and Doppler was performed. The study quality was technically difficult. The patient was in normal sinus rhythm during the exam. Left Ventricle: The left ventricle is normal in size. Left ventricular wall thickness is mildly increased. Left ventricular systolic function is normal. The ejection fraction is estimated to be 65-70%. There are no obvious focal wall motion abnormalities noted but poor endocardial definition reduces the sensitivity for the detection of such. Assessment of diastolic parameters indicates a relaxation abnormality of the left ventricle, consistent with normal filling pressures. Right Ventricle: The right ventricle is normal in size and function. Atria: Both atria are normal in size. Mitral Valve: The mitral valve leaflets appear moderately thickened, but open well. There is mild mitral annular calcification. There is no mitral regurgitation. Aortic Valve: The aortic valve is not well visualized. The aortic valve is heavily calcified. Leaflet mobility is moderately reduced. The peak aortic velocity is 1.63 m/sec. There is no aortic regurgitation. Tricuspid Valve: The tricuspid valve is normal in structure and function. There is mild tricuspid regurgitation. The right ventricular systolic pressure is estimated at 22 mmHg assuming a right atrial pressure of 3 mm Hg. Pulmonic Valve: The pulmonic valve is not well seen, but is grossly normal. There is a trace or physiologic amount of pulmonic regurgitation. There is no other significant valvular heart disease. Great Vessels: The aortic root is normal size. The dimensions of the ascending aorta are normal. Pericardium/ Pleura There is no pericardial effusion. There is a moderate left-sided pleural effusion. IMPRESSION: Left ventricular wall thickness is mildly increased. LVEF is normal. There are no obvious focal wall motion abnormalities noted but poor endocardial definition reduces the sensitivity for the detection of such. Assessment of diastolic parameters indicates a relaxation abnormality of the left ventricle, consistent with normal filling pressures. The right ventricle is normal in size and function. The right ventricular systolic pressure is estimated at 22 mmHg assuming a right atrial pressure of 3 mm Hg. Both atria are normal in size. The aortic valve is not well visualized. The aortic valve is heavily calcified. Leaflet mobility is moderately reduced but the peak aortic velocity is 1.63 m/sec which would indicate no significant stenosis. This is most likely underestimated and recommend a focus study to re-evaluate for aortic stenosis. There is no other significant valvular heart disease. The aortic root is normal size. There is a moderate left-sided pleural effusion.
[2017-02-04 14:32] VITALS: BP 120/62
[2017-02-04 18:37] VITALS: BP 131/48
[2017-02-04 22:44] VITALS: BP 140/59
[2017-02-05 03:29] VITALS: BP 111/66
--- NOTE | 2017-02-05 06:58 | Progress Note ---
Subjective General Note Date: February 05, 2017 Admission Date: January 22, 2017 Hospital Day: 15 PCP: Ion Machado MD Status: Inpatient, ACU Advanced Directive: FULL CODE Room: 208 Subjective This is an 81-year-old white male with a significant past medical history of hypertension, hypothyroidism, hyperlipidemia, degenerative joint disease, sleep apnea, prostate CA, cerebrovascular disease status post CVA, CHF, who presented to [facility] emergency department with complaints of abdominal pain. [facility] ER evaluation was consistent with acute appendicitis. The patient was admitted by Dr. Lester Paredes later requested consultation by the hospitalist service to provide medical management. Secondary to the above, the patient was seen in consultation by Saint Swenson on January 25, 2017. For other history present illness, past medical history, family history, social history, review of systems, and admission physical examination please see the patient's history and physical examination and ER visit note in the patient's medical record. Subjective The patient states he is doing well today. Denies abdominal pain. Mild abdominal distention. No nausea or vomiting. Denies shortness of breath. Patient requests None Medications and Allergies Medications Current Medications Sig/Ivone Start time Last Medication Dose Route Stop Time Status Admin Ferrous Sulfate 325 MG TID 02/03 2200 AC 02/05 PTUBE 0600 Levothyroxine Sodium 50 MCG 0600 01/27 0600 AC 02/05 IV 0600 Metoprolol Tartrate 5 MG Q6H 01/26 2015 AC 02/05 IV 0248 Amino Acids/ 1,000 ML .BY DURATION 01/26 1500 AC 02/04 Electrolytes/Dextrose IV 1723 Dextrose/Sodium 1,000 ML ASDIRECTED 01/26 1500 AC 02/04 Chloride/Electrolyt IV 2037 Fat Emulsion 250 ML Q24H 01/26 1500 AC 02/04 Intravenous IV 1526 Multivitamins 10 ML .BY DURATION 01/26 1500 AC 02/04 Trace Metals 1 ML IV 0244 Amino Acids/ 1,000 ML Electrolytes/Dextrose Promethazine HCl 25 MG Q4H PRN 01/25 1045 AC IV Ondansetron HCl See Dose Q8H PRN / 0800 AC 01/25 Insts (1) IV 0951 Metronidazole/Sodium 100 ML Q8HR 01/24 2200 AC 02/05 Chloride IV 0600 Levofloxacin/Dextrose 100 ML 1200 05/01 1630 AC 02/04 IV 1237 Morphine Sulfate 4 MG Q1H PRN 01/24 1200 AC IV Morphine Sulfate 2 MG Q1H PRN 01/24 1200 AC 01/26 IV 1025 Acetaminophen 650 MG Q6H PRN 01/21 2215 AC PO Dose Instructions: (1)Ondansetron HCl: 4 - 8 MG Allergies Coded Allergies: Iodinated Diagnostic Agents (Severe, has to have steroids to tolerate contrast 01/24/17) Penicillins (Mild, Rash 01/21/17) Physical Exam Vital Signs / I&Os Vital Signs Date Time Temp Pulse Resp B/P Pulse O2 O2 Flow FiO2 Ox Delivery Rate 02/05 0329 97.7 71 18 111/66 94 Room Air 02/04 2244 97.3 73 18 140/59 94 Room Air 02/04 2100 Room Air 02/04 1837 97.5 72 18 131/48 96 Room Air 02/04 1432 97.9 85 18 120/62 93 Room Air 02/04 1018 97.9 97 18 98/57 93 Room Air 0.0 02/04 0930 Room Air 0.0 I&O 02/05 0000 02/04 1600 02/04 0800 Intake Total 3000 0 1197 Output Total 1345 1342 1058 Balance 1655 -1342 139 General Appearance Alert, Oriented X3, Cooperative, No acute distress Lungs Clear to auscultation Cardiovascular Regular rate and rhythm, Normal S1 and S2, murmur unchanged Abdomen Normal bowel sounds, Soft, distended. Nontender.colostomy present Extremities No cyanosis, No clubbing Neurological Cranial nerves intact, No lateralizing signs Psych/Mental Status Mental status normal, Mood normal LAB Results Laboratory Tests 02/05 0515 Chemistry Plasma Sodium (136 - 145 mmol/L) 140 Plasma Potassium (3.5 - 5.1 mmol/L) 4.8 Plasma Chloride (98 - 107 mmol/L) 105 CO2 (Enzymatic) (21 - 32 mmol/L) 26 BUN (7 - 18 mg/dL) 23 Creatinine (0.6 - 1.3 mg/dL) 0.8 Est GFR ( Amer) (mL/min) >60 Est GFR (Non-Af Amer) (mL/min) >60 Glucose (70 - 110 mg/dL) 120 Plasma Calcium (8.5 - 10.1 mg/dL) 7.7 Total Bilirubin (0.0 - 1.0 mg/dL) 0.2 AST (15 - 37 U/L) 18 ALT (12 - 78 U/L) 21 Alkaline Phosphatase (46 - 116 U/L) 74 Total Protein (6.4 - 8.2 g/dL) 5.9 Albumin (3.3 - 5.0 g/dL) 2.4 Hematology WBC (4.5 - 11.5 K/uL) 9.7 RBC (4.50 - 5.90 M/uL) 3.40 Hgb (13.5 - 17.5 gm/dL) 10.1 Hct (41.0 - 53.0 %) 31.0 MCV (80 - 100 fL) 91 MCH (26 - 34 pg) 30 RDW (11.6 - 14.8 %) 14.8 Neut % (Auto) (50 - 75 %) Pending Lymph % (Auto) (25 - 40 %) Pending [place] % (Auto) (3 - 14 %) Pending Band Neutrophils % (0 - 8 %) Pending Plt Count, EDTA (150 - 400 K/uL) 328 PUBS MCHC (31 - 37 g/dL) 33 Assessment and Plan Problem List 1. CHF (congestive heart failure) Plan -No signs of CHF -Echocardiogram shows mild LVH with normal left ventricular ejection fraction. No clear valvular abnormalities. -Monitor 2. HTN (hypertension) Plan -Blood pressure well controlled -Blood pressure 111/66 mmHg -Monitor -Low-salt diet when taking well orally 3. Anemia Plan -Iron deficiency anemia -Continue ferrous sulfate -Monitor -H&H stable at 10.1/31.0 4. Appendicitis Plan -Follow per general surgery -Antimicrobials per general surgery 5. Small bowel obstruction Plan -Follow per general surgery -Dietary restrictions/recommendations per surgery 6. Hypothyroidism Plan -Patient continues on IV Synthroid -We'll ask surgery whether this can be switched to oral medications today. -Monitor 7. Hyperlipidemia Plan -Placed back on her outpatient medical regimen when taking well orally Current status: Fair, stable Anticipated discharge date: Per general surgery Anticipated discharge placement: Home Patient care time: Time spent in chart review, patient interview, physical exam, CPOE, and care documentation: 25 minutes Visit to patient today: 1 Complexity of care: Moderate E&M Codes Rounding: Inpt-Moderate/[id number]
[2017-02-05 07:40] VITALS: BP 126/76
[2017-02-05 10:32] VITALS: BP 110/58
--- NOTE | 2017-02-05 11:07 | Progress Note ---
Subjective General 81-year-old male hospital day 15. No nausea no vomiting. States that flatus is being passed in his colostomy bag and having small stools. Patient is ambulatory. Patient states his abdomen is always distended even at home. This is nothing new for him. Physical Exam Vital Signs / I&Os Vital Signs Date Time Temp Pulse Resp B/P Pulse O2 O2 Flow FiO2 Ox Delivery Rate 02/05 1032 97.9 72 20 110/58 94 Room Air 0.0 I&O NG tube output last 24 hours 350 cc 02/04 0800 02/04 1600 02/05 0000 Intake Total 1197 0 3000 Output Total 1058 1342 1345 Balance 139 -1342 1655 General Appearance Alert, Oriented X3, Cooperative, No acute distress HEENT PERRLA, EOMI, Moist mucous membranes, NG tube in place Lungs Clear to auscultation Cardiovascular Regular rate and rhythm Abdomen Soft, high-pitched bowel sounds, distended, tympanitic to percussion. Soft to palpation. Extremities No edema Skin warm and dry Neurological No lateralizing signs Psych/Mental Status Mood normal LAB Results Laboratory Tests 02/05 0515 Chemistry Plasma Sodium (136 - 145 mmol/L) 140 Plasma Potassium (3.5 - 5.1 mmol/L) 4.8 Plasma Chloride (98 - 107 mmol/L) 105 CO2 (Enzymatic) (21 - 32 mmol/L) 26 BUN (7 - 18 mg/dL) 23 Creatinine (0.6 - 1.3 mg/dL) 0.8 Est GFR ( Amer) (mL/min) >60 Est GFR (Non-Af Amer) (mL/min) >60 Glucose (70 - 110 mg/dL) 120 Plasma Calcium (8.5 - 10.1 mg/dL) 7.7 Total Bilirubin (0.0 - 1.0 mg/dL) 0.2 AST (15 - 37 U/L) 18 ALT (12 - 78 U/L) 21 Alkaline Phosphatase (46 - 116 U/L) 74 Total Protein (6.4 - 8.2 g/dL) 5.9 Albumin (3.3 - 5.0 g/dL) 2.4 Hematology WBC (4.5 - 11.5 K/uL) 9.7 RBC (4.50 - 5.90 M/uL) 3.40 Hgb (13.5 - 17.5 gm/dL) 10.1 Hct (41.0 - 53.0 %) 31.0 MCV (80 - 100 fL) 91 MCH (26 - 34 pg) 30 RDW (11.6 - 14.8 %) 14.8 Neut % (Auto) (50 - 75 %) 72 Lymph % (Auto) (25 - 40 %) 15 [place] % (Auto) (3 - 14 %) 8 Eos % (Auto) (0 - 4 %) 3 Baso % (Auto) (0 - 2 %) 0 Band Neutrophils % (0 - 8 %) 1 Metamyelocytes % (0 - 1 %) 1 Myelocytes (0 - 1 %) 0 Other Cell Type 0 Plt Count, EDTA (150 - 400 K/uL) 328 Poikilocytosis (manual 1+ Anisocytosis (manual) 2+ PUBS MCHC (31 - 37 g/dL) 33 Assessment and Plan Problem List 1. Small bowel obstruction Plan Chronic partial small bowel obstruction. We'll DC NG tube today. Continue conservative present management.
[2017-02-05 16:30] VITALS: BP 134/76
[2017-02-05 19:51] VITALS: BP 142/67
[2017-02-05 22:23] VITALS: BP 136/73
[2017-02-06 03:04] VITALS: BP 140/68
[2017-02-06 06:40] VITALS: BP 113/56
--- NOTE | 2017-02-06 07:11 | Progress Note ---
Subjective General 81-year-old male hospital day 16. NG tube was discontinued yesterday. Patient denies any abdominal pain. Patient denies any nausea or vomiting. Patient states that he is putting out flatus and a small amount of bowel movements through his colostomy site. Patient is ambulatory. Patient would like something to eat. Physical Exam Vital Signs / I&Os Vital Signs Date Time Temp Pulse Resp B/P Pulse O2 O2 Flow FiO2 Ox Delivery Rate 02/06 0640 97.5 72 18 113/56 94 Room Air Air 0.0 I&O 02/05 0800 02/05 1600 02/06 0000 Intake Total 0 1931 1572 Output Total 783 1005 1273 Balance -783 926 299 General Appearance Alert, Oriented X3, Cooperative, No acute distress HEENT PERRLA, EOMI, Moist mucous membranes Lungs Clear to auscultation Neck Supple, No JVD, No masses, No thyromegaly, No lymphadenopathy Cardiovascular Regular rate and rhythm Abdomen very distended. Very tympanitic. Positive bowel sounds. Soft to palpation. No tenderness to palpation. Extremities No cyanosis, No clubbing, No edema Skin warm and dry with no peripheral cyanosis Neurological No lateralizing signs Psych/Mental Status Mood normal Assessment and Plan Problem List 1. Appendicitis Plan Patient not complaining of any abdominal pain. Stable. Continue present management. 2. Small bowel obstruction Plan Chronic partial small bowel obstruction. Stable. Tolerating NG tube output. Will start clear liquids today.
--- NOTE | 2017-02-06 07:39 | Progress Note ---
Subjective General Note Date: February 06, 2017 Admission Date: January 22, 2017 Hospital Day: 16 PCP: Ion Machado MD Status: Inpatient, ACU Advanced Directive: FULL CODE Room: 208 Subjective This is an 81-year-old white male with a significant past medical history of hypertension, hypothyroidism, hyperlipidemia, degenerative joint disease, sleep apnea, prostate CA, cerebrovascular disease status post CVA, CHF, who presented to [facility] emergency department with complaints of abdominal pain. [facility] ER evaluation was consistent with acute appendicitis. The patient was admitted by Dr. Lester Paredes later requested consultation by the hospitalist service to provide medical management. Secondary to the above, the patient was seen in consultation by Saint Swenson on January 25, 2017. For other history present illness, past medical history, family history, social history, review of systems, and admission physical examination please see the patient's history and physical examination and ER visit note in the patient's medical record. Subjective The patient states he is doing well today. No abdominal pain. NG tube has been removed. BMs normal. Taking clear liquid diet without problems. Patient requests None Medications and Allergies Medications Current Medications Sig/Ivone Start time Last Medication Dose Route Stop Time Status Admin Levothyroxine Sodium 100 MCG 0600 02/06 0600 AC 02/06 PO 0549 Ferrous Sulfate 325 MG TID 02/05 1400 AC 02/06 PO 0549 Metoprolol Tartrate 5 MG Q6H 01/26 2015 AC 02/06 IV 0246 Amino Acids/ 1,000 ML .BY DURATION 01/26 1500 AC 02/05 Electrolytes/Dextrose IV 2251 Dextrose/Sodium 1,000 ML ASDIRECTED 01/26 1500 AC 02/05 Chloride/Electrolyt IV 1900 Fat Emulsion 250 ML Q24H 01/26 1500 AC 02/05 Intravenous IV 1524 Multivitamins 10 ML .BY DURATION 01/26 1500 AC 02/05 Trace Metals 1 ML IV 0806 Amino Acids/ 1,000 ML Electrolytes/Dextrose Promethazine HCl 25 MG Q4H PRN 01/25 1045 AC IV Ondansetron HCl See Dose Q8H PRN / 0800 AC 01/25 Insts (1) IV 0951 Metronidazole/Sodium 100 ML Q8HR / 2200 AC 02/06 Chloride IV 0549 Levofloxacin/Dextrose 100 ML 1200 05/01 1630 AC 02/05 IV 1405 Morphine Sulfate 4 MG Q1H PRN 01/24 1200 AC IV Morphine Sulfate 2 MG Q1H PRN 01/24 1200 AC 01/26 IV 1025 Acetaminophen 650 MG Q6H PRN 01/21 2215 AC PO Dose Instructions: (1)Ondansetron HCl: 4 - 8 MG Allergies Coded Allergies: Iodinated Diagnostic Agents (Severe, has to have steroids to tolerate contrast 01/24/17) Penicillins (Mild, Rash 01/21/17) Physical Exam Vital Signs / I&Os Vital Signs Date Time Temp Pulse Resp B/P Pulse O2 O2 Flow FiO2 Ox Delivery Rate 02/06 0640 97.5 72 18 113/56 94 Room Air 02/06 0304 98.1 73 18 140/68 97 Room Air 02/05 2223 98.1 72 18 136/73 93 Room Air 02/05 1951 97.9 69 18 142/67 94 02/05 1630 97.9 73 20 134/76 94 02/05 1032 97.9 72 20 110/58 94 Room Air 0.0 02/05 0814 Room Air 02/05 0740 98.1 86 16 126/76 95 Room Air 0.0 I&O 02/06 0000 02/05 1600 02/05 0800 Intake Total 1572 1931 0 Output Total 1273 1005 783 Balance 299 926 -783 General Appearance Alert, Oriented X3, Cooperative, No acute distress Lungs Clear to auscultation Cardiovascular Regular rate and rhythm, Normal S1 and S2 Abdomen Normal bowel sounds, Soft, mild distention. Extremities No cyanosis, No clubbing Neurological Cranial nerves intact, No lateralizing signs Psych/Mental Status Mental status normal, Mood normal Assessment and Plan Problem List 1. Appendicitis Plan -Improved -Switched to oral Levaquin/Flagyl -Follow up per surgery 2. Small bowel obstruction Plan -Resolved -Follow up per surgery 3. HTN (hypertension) Plan -Well-controlled -Low salt diet when taken orally -Switched to outpatient medical regimen 4. Hypothyroidism Plan -Stable -Continue Synthroid 5. Hyperlipidemia Plan -Stable -Patient placed back on outpatient medical regimen -Monitor -Follow up with PCP 6. Iron deficiency anemia Status Acute Onset Date Unknown Plan -Patient with findings of iron deficiency anemia -Ferrous sulfate 325 mg by mouth 3 times a day -Monitor Current status: Good, improved Anticipated discharge date: Anticipated discharge 1-2 days per surgical staff Anticipated discharge placement: Home Patient care time: Time spent in chart review, patient interview, physical exam, CPOE, and care documentation: 25 minutes Visit to patient today: 1 Complexity of care: Moderate E&M Codes Rounding: Inpt-Moderate/[id number]
[2017-02-06 10:32] VITALS: BP 98/46
[2017-02-06 15:28] VITALS: BP 117/59
[2017-02-06 19:45] VITALS: BP 108/55
[2017-02-06 22:47] VITALS: BP 129/61
[2017-02-07 02:50] VITALS: BP 136/62
[2017-02-07 06:09] VITALS: BP 134/76
--- NOTE | 2017-02-07 07:09 | Progress Note ---
Subjective General Note Date: February 07, 2017 Admission Date: January 22, 2017 Hospital Day: 17 PCP: Ion Machado MD Status: Inpatient, ACU Advanced Directive: FULL CODE Room: 208 Subjective This is an 81-year-old white male with a significant past medical history of hypertension, hypothyroidism, hyperlipidemia, degenerative joint disease, sleep apnea, prostate CA, cerebrovascular disease status post CVA, CHF, who presented to [facility] emergency department with complaints of abdominal pain. [facility] ER evaluation was consistent with acute appendicitis. The patient was admitted by Dr. Lester Paredes later requested consultation by the hospitalist service to provide medical management. Secondary to the above, the patient was seen in consultation by [facility] on January 25, 2017. For other history present illness, past medical history, family history, social history, review of systems, and admission physical examination please see the patient's history and physical examination and ER visit note in the patient's medical record. Subjective The patient states he is having significant nausea with vomiting this a.m. Recurrent abdominal pain and distention. Patient requests Relief of abdominal pain Medications and Allergies Medications Current Medications Sig/Ivone Start time Last Medication Dose Route Stop Time Status Admin Levofloxacin 500 MG 1200 02/07 1200 AC PO Promethazine HCl 25 MG Q4H PRN 02/07 0430 AC 02/07 IV 0444 Ondansetron HCl 4 MG Q4H PRN 02/07 0300 AC IV Metronidazole 500 MG Q8HR 02/06 2200 AC 02/06 PO 2145 Metoprolol Tartrate 25 MG BID 02/06 1457 AC 02/06 PO 2145 Atorvastatin Calcium 20 MG DAILY 02/06 1456 AC 02/06 PO 1522 Levothyroxine Sodium 100 MCG 0600 02/06 0600 AC 02/06 PO 0549 Ferrous Sulfate 325 MG TID 02/05 1400 AC 02/06 PO 2145 Amino Acids/ 1,000 ML .BY DURATION 01/26 1500 AC 02/06 Electrolytes/Dextrose IV 1431 Dextrose/Sodium 1,000 ML ASDIRECTED 01/26 1500 AC 02/06 Chloride/Electrolyt IV 1443 Fat Emulsion 250 ML Q24H 01/26 1500 AC 02/06 Intravenous IV 1522 Multivitamins 10 ML .BY DURATION 01/26 1500 AC 02/07 Trace Metals 1 ML IV 0450 Amino Acids/ 1,000 ML Electrolytes/Dextrose Acetaminophen 650 MG Q6H PRN 01/21 2215 AC PO Allergies Coded Allergies: Iodinated Diagnostic Agents (Severe, has to have steroids to tolerate contrast 01/24/17) Penicillins (Mild, Rash 01/21/17) Physical Exam Vital Signs / I&Os Vital Signs Date Time Temp Pulse Resp B/P Pulse O2 O2 Flow FiO2 Ox Delivery Rate 02/07 0609 97.9 75 20 134/76 92 Room Air 02/07 0250 99.0 91 20 136/62 92 Room Air 02/06 2247 97.9 74 20 129/61 94 Room Air 0.0 02/06 2145 Room Air 02/06 1945 97.5 70 18 108/55 95 Room Air 02/06 1528 97.7 74 18 117/59 96 Room Air 02/06 1032 97.7 69 18 98/46 94 Room Air 02/06 0800 Room Air I&O 02/07 0000 02/06 1600 02/06 0800 Intake Total 2265 1630 1659 Output Total 830 1256 1249 Balance 1435 374 410 General Appearance Alert, Oriented X3, Cooperative, Moderate distress Lungs Clear to auscultation Cardiovascular Regular rate and rhythm, Normal S1 and S2 Abdomen Distended, tympanitic, tender to palpation diffusely Extremities No cyanosis, No clubbing, No edema Neurological Cranial nerves intact, No lateralizing signs Psych/Mental Status Mental status normal LAB Results Laboratory Tests 02/07 02/07 0523 0500 Chemistry Plasma Sodium (136 - 145 mmol/L) 140 Cancelled Plasma Potassium (3.5 - 5.1 mmol/L) 4.5 Cancelled Plasma Chloride (98 - 107 mmol/L) 104 Cancelled CO2 (Enzymatic) (21 - 32 mmol/L) 29 Cancelled BUN (7 - 18 mg/dL) 28 Cancelled Creatinine (0.6 - 1.3 mg/dL) 0.9 Cancelled Est GFR ( Amer) (mL/min) >60 Cancelled Est GFR (Non-Af Amer) (mL/min) >60 Cancelled Glucose (70 - 110 mg/dL) 137 Cancelled Plasma Calcium (8.5 - 10.1 mg/dL) 8.0 Cancelled Phosphorus (2.5 - 4.9 mg/dL) 4.4 Plasma Magnesium (1.8 - 2.4 mg/dL) 2.0 Total Bilirubin (0.0 - 1.0 mg/dL) 0.2 AST (15 - 37 U/L) 16 ALT (12 - 78 U/L) 18 Alkaline Phosphatase (46 - 116 U/L) 80 Total Protein (6.4 - 8.2 g/dL) 6.8 Albumin (3.3 - 5.0 g/dL) 2.5 Hematology WBC (4.5 - 11.5 K/uL) 12.5 RBC (4.50 - 5.90 M/uL) 3.59 Hgb (13.5 - 17.5 gm/dL) 10.7 Hct (41.0 - 53.0 %) 32.7 MCV (80 - 100 fL) 91 MCH (26 - 34 pg) 30 RDW (11.6 - 14.8 %) 15.0 Neut % (Auto) (50 - 75 %) 83.2 Lymph % (Auto) (25 - 40 %) 9.3 [place] % (Auto) (3 - 14 %) 5.7 Eos % (Auto) (0 - 4 %) 1.7 Baso % (Auto) (0 - 2 %) 0.1 Plt Count, EDTA (150 - 400 K/uL) 406 PUBS MCHC (31 - 37 g/dL) 33 Imaging Abdominal X-Ray IMPRESSION: 1. NG tube in adequate position within the stomach. 2. No significant change to bowel gas pattern, likely chronic. Dictated by: BENNETT TIWARI MD D: LYNSEY;02/07/17 1226 Abdominal X-Ray IMPRESSION: 1. NG tube has been removed. 2. No change in the markedly distended loops of bowel with air-fluid levels. This may represent chronic changes versus bowel obstruction. Dictated by: GUILLERMO MONGE MD D: YULISSAKVERENA;02/07/17 1128 Assessment and Plan Problem List 1. Appendicitis Plan -Resolved -Antimicrobials discontinued per Dr. Paredes's recommendations -Follow per surgery 2. Small bowel obstruction Plan -Patient with findings of recurrent small bowel obstruction -Abdomen grossly distended, tympanitic, tender to palpation -We'll place NG tube -Surgical follow-up per Dr. Paredes 3. HTN (hypertension) Plan -Stable -Patient switched to Lopressor 5 mg IV every 6 hours secondary to nothing by mouth status -Monitor 4. Hypothyroidism Plan -Patient switched to IV Synthroid secondary to nothing by mouth status -Synthroid 0.05 mg IV daily. 5. Hyperlipidemia Plan -Stable. -Lipitor discontinued secondary to nothing by mouth status 6. Iron deficiency anemia Status Acute Onset Date Unknown Plan -Iron discontinued secondary to nothing by mouth status -Consider IV iron therapy. Current status: Fair, unstable Anticipated discharge date: Anticipated discharge 4-5 days Anticipated discharge placement: Home Patient care time: Time spent in chart review, patient interview, physical exam, CPOE, and care documentation: 25 minutes Visit to patient today: 1 Complexity of care: Moderate E&M Codes Rounding: Inpt-Moderate/21042
--- NOTE | 2017-02-07 10:35 | Progress Note ---
Subjective General Pt. was nearly ready to go home yesterday-passing stool and having a diet, but today he re-developed the signs of a small bowel obstruction with vomiting and an increase in his baseline distension. Physical Exam Vital Signs / I&Os Vital Signs Date Time Temp Pulse Resp B/P Pulse O2 O2 Flow FiO2 Ox Delivery Rate 02/07 0609 97.9 75 20 134/76 92 Room Air 02/07 0250 99.0 91 20 136/62 92 Room Air 02/06 2247 97.9 74 20 129/61 94 Room Air 0.0 02/06 2145 Room Air 02/06 1945 97.5 70 18 108/55 95 Room Air 02/06 1528 97.7 74 18 117/59 96 Room Air I&O 02/06 0800 02/06 1600 02/07 0000 Intake Total 1659 1630 2265 Output Total 1249 1256 830 Balance 486 304 7268 General Appearance Alert, Oriented X3, Mild distress Abdomen distended and tympanitic but no guarding. He is currently having a nasogastric tube placed. Assessment and Plan Problem List 1. Parastomal hernia without obstruction or gangrene 2. Small bowel obstruction Plan replace NG and continue TPN. This pt. is poor surgical candidate and has the choice of longer term out patient TPN with /without a draining PED vs surgery with all the elevated risks of catastrophe.
--- NOTE | 2017-02-07 10:35 | Progress Note ---
Subjective General Pt. was nearly ready to go home yesterday-passing stool and having a diet, but today he re-developed the signs of a small bowel obstruction with vomiting and an increase in his baseline distension. Physical Exam Vital Signs / I&Os Vital Signs Date Time Temp Pulse Resp B/P Pulse O2 O2 Flow FiO2 Ox Delivery Rate 02/07 0609 97.9 75 20 134/76 92 Room Air 02/07 0250 99.0 91 20 136/62 92 Room Air 02/06 2247 97.9 74 20 129/61 94 Room Air 0.0 02/06 2145 Room Air 02/06 1945 97.5 70 18 108/55 95 Room Air 02/06 1528 97.7 74 18 117/59 96 Room Air I&O 02/06 0800 02/06 1600 02/07 0000 Intake Total 1659 1630 2265 Output Total 1249 1256 830 Balance 013 902 4932 General Appearance Alert, Oriented X3, Mild distress Abdomen distended and tympanitic but no guarding. He is currently having a nasogastric tube placed. Assessment and Plan Problem List 1. Parastomal hernia without obstruction or gangrene 2. Small bowel obstruction Plan replace NG and continue TPN. This pt. is poor surgical candidate and has the choice of longer term out patient TPN with /without a draining PED vs surgery with all the elevated risks of catastrophe.
[2017-02-07 10:56] VITALS: BP 133/79
--- NOTE | 2017-02-07 11:28 | DIAGNOSTIC IMAGING REPORT ---
PROCEDURE: XR ABDOMEN 1 VIEW INDICATION: SBO/NG TECHNIQUE: AP supine and upright views. COMPARISON: Abdominal film 01/29/2017 FINDINGS: Multiple markedly dilated loops of bowel, essentially unchanged, with air-fluid levels. There is paucity of gas in the lower pelvis. NG tube has been removed. No masses or unusual calcifications. Moderate degenerative changes of the lumbar spine. Mild left basilar atelectasis/scarring. IMPRESSION: 1. NG tube has been removed. 2. No change in the markedly distended loops of bowel with air-fluid levels. This may represent chronic changes versus bowel obstruction.
--- NOTE | 2017-02-07 12:26 | DIAGNOSTIC IMAGING REPORT ---
PROCEDURE: XR ABDOMEN 1 VIEW INDICATION: NGT PLACEMENT TECHNIQUE: Single view abdomen. COMPARISON: 1001 hours FINDINGS: NG tube is now in position with the distal and directed laterally in the left upper quadrant. There are markedly dilated air-filled bowel loops throughout the abdomen without significant change since the previous study. Ostomy appliance visible in the left lower quadrant. Moderate atherosclerotic common iliac calcification. Osseous structures demonstrate degenerative change. IMPRESSION: 1. NG tube in adequate position within the stomach. 2. No significant change to bowel gas pattern, likely chronic.
[2017-02-07 14:59] VITALS: BP 142/70
[2017-02-07 18:17] VITALS: BP 114/63
[2017-02-07 22:33] VITALS: BP 121/54
[2017-02-08 02:30] VITALS: BP 108/50
[2017-02-08 06:55] VITALS: BP 143/65
--- NOTE | 2017-02-08 07:55 | Progress Note ---
Subjective General Pt. feels better-ng in place. No further vomiting and he reports stool and gas from the stoma. Physical Exam Vital Signs / I&Os Vital Signs Date Time Temp Pulse Resp B/P Pulse O2 O2 Flow FiO2 Ox Delivery Rate 02/08 0655 98.4 91 18 143/65 93 Room Air 02/08 0230 97.9 72 16 108/50 91 Room Air 02/07 2233 98.2 77 16 121/54 92 Room Air 02/07 2125 Room Air 02/07 1817 98.1 77 16 114/63 93 Room Air 02/07 1459 97.3 84 18 142/70 94 Room Air 02/07 1124 Room Air 02/07 1056 97.3 86 18 133/79 92 I&O 02/07 0800 02/07 1600 02/08 0000 Intake Total 1612 0 2026 Output Total 1040 1656 770 Balance 572 -1656 1256 General Appearance Alert, Oriented X3, Cooperative Abdomen moderate tympany, bowel sounds present, no localized tenderness. The stomal area shows no hernia or tenderness to exam. Assessment and Plan Problem List 1. Small bowel obstruction Plan This is an ongoing partial sbo and may be due to intermittent partial obstruction at the peristomal hernia, but also this pt. had pelvic radiation and multiple surgeries. He is not interested in surgery, but has failed decompression and feeding attempts twice. I think he is OK with TPN and decompression for now but is getting less likely to succeeed in the long run with this strategy and should be considered for surgery. Will also get a CEA with the next labs. 2. Appendicitis Plan this process seems to have settled down on CT and on exam after 2 weeks of antibiotics. A c scope may be needed to rule out a malignant etiology.
--- NOTE | 2017-02-08 09:36 | Progress Note ---
Subjective General This is an 81-year-old white male for whom consultation was asked on 01/25/2017. He presented to the hospital with a 5 days' history of abdominal pain in the right lower quadrant; it was radiating to the left side. The patient had no nausea and no vomiting. No fever, no chills. The patient had liquid stool which was in the colostomy bag. The patient came and workup showed that patient has appendicitis, which is considered chronic, since it has been going on for 6 days. Had chest pain half an hour ago, resolved after few min, in center, no radiation , no dyspnea or palpitation or dizziness no sweats, still has dyscomfort in abdomen ROS: Cardiology: postive for chest pain, negative for dyspnea, palpiation, dizziness GI: negtive for Abdominal pain Constitional: no sweats Physical Exam Vital Signs / I&Os Vital Signs Date Time Temp Pulse Resp B/P Pulse O2 O2 Flow FiO2 Ox Delivery Rate 02/08 0655 98.4 91 18 143/65 93 Room Air 02/08 0230 97.9 72 16 108/50 91 Room Air 02/07 2233 98.2 77 16 121/54 92 Room Air 02/07 2125 Room Air 02/07 1817 98.1 77 16 114/63 93 Room Air 02/07 1459 97.3 84 18 142/70 94 Room Air 02/07 1124 Room Air 02/07 1056 97.3 86 18 133/79 92 I&O 02/08 0000 02/07 1600 02/07 0800 Intake Total 2026 0 1612 Output Total 770 1656 1040 Balance 1256 -1656 572 General Appearance Mild distress Lungs Clear to auscultation Neck Supple Cardiovascular Regular rate and rhythm, Normal S1 and S2, No murmurs, gallops, rubs Abdomen distended, mod.tender, BS hypoactive Extremities No edema Skin No Rashes Psych/Mental Status Mental status normal LAB Results Laboratory Tests 02/08 02/08 0525 0525 Chemistry Plasma Sodium (136 - 145 mmol/L) 143 Plasma Potassium (3.5 - 5.1 mmol/L) 4.5 Plasma Chloride (98 - 107 mmol/L) 105 CO2 (Enzymatic) (21 - 32 mmol/L) 31 BUN (7 - 18 mg/dL) 23 Creatinine (0.6 - 1.3 mg/dL) 0.8 Est GFR ( Amer) (mL/min) >60 Est GFR (Non-Af Amer) (mL/min) >60 Glucose (70 - 110 mg/dL) 132 Plasma Calcium (8.5 - 10.1 mg/dL) 7.8 Carcinoembryonic Ag Pending Hematology WBC (4.5 - 11.5 K/uL) 10.5 RBC (4.50 - 5.90 M/uL) 3.20 Hgb (13.5 - 17.5 gm/dL) 9.6 Hct (41.0 - 53.0 %) 29.2 MCV (80 - 100 fL) 91 MCH (26 - 34 pg) 30 RDW (11.6 - 14.8 %) 15.5 Neut % (Auto) (50 - 75 %) 79 Lymph % (Auto) (25 - 40 %) 14 [place] % (Auto) (3 - 14 %) 4 Eos % (Auto) (0 - 4 %) 0 Baso % (Auto) (0 - 2 %) 0 Band Neutrophils % (0 - 8 %) 3 Metamyelocytes % (0 - 1 %) 0 Myelocytes (0 - 1 %) 0 Other Cell Type 0 Plt Count, EDTA (150 - 400 K/uL) 355 Hypochromic-Microcytic 1+ Anisocytosis (manual) 1+ PUBS MCHC (31 - 37 g/dL) 33 Assessment and Plan Problem List 1. Chest pain Plan resolved after few minutes, EKG no changes no need to send for Troponin, if happens again will send one 2. Small bowel obstruction Plan continue NG suction and IV hydration 3. Appendicitis Plan resolved by conservative treatment 4. HTN (hypertension) Plan controlled continue current meds
[2017-02-08 10:23] VITALS: BP 112/63
[2017-02-08 14:43] VITALS: BP 140/75
[2017-02-08 18:21] VITALS: BP 139/58
[2017-02-08 22:45] VITALS: BP 140/57
[2017-02-09 00:54] VITALS: BP 149/73
[2017-02-09 07:01] VITALS: BP 141/72
--- NOTE | 2017-02-09 09:16 | Progress Note ---
Subjective General his is an 81-year-old white male for whom consultation was asked on 01/25/2017. He presented to the hospital with a 5 days' history of abdominal pain in the right lower quadrant; it was radiating to the left side. The patient had no nausea and no vomiting. No fever, no chills. The patient had liquid stool which was in the colostomy bag. The patient came and workup showed that patient has appendicitis, which is considered chronic, since it has been going on for 6 days. Still has NG tub in, no nausea vomiting, some abd. pain, no BM but able to pass mihaela, no dypsnea no cp since yesterdy, no palpitation Review of system: GI: Negative for nausea vomiting positive for abdominal pain no bowel movement cardiology: Negative for chest pain palpitations or dyspnea Physical Exam Vital Signs / I&Os Vital Signs Date Time Temp Pulse Resp B/P Pulse O2 O2 Flow FiO2 Ox Delivery Rate 02/09 0701 77 18 141/72 94 02/09 0054 98.1 73 18 149/73 94 Room Air 02/08 2245 97.7 75 18 140/57 95 Room Air 02/08 2022 0.0 02/08 1821 97.5 73 18 139/58 96 Room Air 02/08 1443 97.9 70 20 140/75 94 Room Air 02/08 1023 97.7 83 18 112/63 92 Room Air I&O 02/09 0000 02/08 1600 02/08 0800 Intake Total 2611 0 2219 Output Total 1670 2259 975 Balance 941 -2259 1244 General Appearance No acute distress Lungs Clear to auscultation Neck Supple Cardiovascular Regular rate and rhythm, Normal S1 and S2, No murmurs, gallops, rubs Abdomen Soft, distended, mildly tender Extremities No edema Skin No Rashes Psych/Mental Status Mental status normal LAB Results Laboratory Tests 02/09 02/09 0525 0525 Chemistry Plasma Sodium (136 - 145 mmol/L) 140 Plasma Potassium (3.5 - 5.1 mmol/L) 4.7 Plasma Chloride (98 - 107 mmol/L) 103 CO2 (Enzymatic) (21 - 32 mmol/L) 34 BUN (7 - 18 mg/dL) 19 Creatinine (0.6 - 1.3 mg/dL) 0.8 Est GFR ( Amer) (mL/min) >60 Est GFR (Non-Af Amer) (mL/min) >60 Glucose (70 - 110 mg/dL) 135 Plasma Calcium (8.5 - 10.1 mg/dL) 7.9 Prealbumin Pending Hematology WBC (4.5 - 11.5 K/uL) 10.7 RBC (4.50 - 5.90 M/uL) 3.37 Hgb (13.5 - 17.5 gm/dL) 10.0 Hct (41.0 - 53.0 %) 30.6 MCV (80 - 100 fL) 91 MCH (26 - 34 pg) 30 RDW (11.6 - 14.8 %) 15.5 Neut % (Auto) (50 - 75 %) 78.1 Lymph % (Auto) (25 - 40 %) 11.2 [place] % (Auto) (3 - 14 %) 7.7 Eos % (Auto) (0 - 4 %) 2.7 Baso % (Auto) (0 - 2 %) 0.3 Plt Count, EDTA (150 - 400 K/uL) 347 PUBS MCHC (31 - 37 g/dL) 33 Assessment and Plan Problem List 1. Small bowel obstruction Plan still requires NG tub, surgery managing 2. HTN (hypertension) Plan controlled now continue current meds 3. Anemia Plan stable being monitored 4. Chest pain Plan no cp since yesterday
[2017-02-09 10:41] VITALS: BP 126/71
[2017-02-09 13:51] VITALS: BP 142/79
--- NOTE | 2017-02-09 14:05 | Progress Note ---
Subjective General Pt. reports no new complaints, he is passing gas and not in pain. Physical Exam Vital Signs / I&Os Vital Signs Date Time Temp Pulse Resp B/P Pulse O2 O2 Flow FiO2 Ox Delivery Rate 02/09 1351 97.5 70 18 142/79 93 02/09 1041 97.9 77 18 126/71 94 02/09 0701 77 18 141/72 94 02/09 0054 98.1 73 18 149/73 94 Room Air 02/08 2245 97.7 75 18 140/57 95 Room Air 02/08 2022 0.0 02/08 1821 97.5 73 18 139/58 96 Room Air 02/08 1443 97.9 70 20 140/75 94 Room Air I&O 02/08 0800 02/08 1600 02/09 0000 Intake Total 2219 0 2611 Output Total 975 2259 1670 Balance 1244 -2259 941 General Appearance Alert, Oriented X3, Cooperative Abdomen Normal bowel sounds, Soft, increased tympany Assessment and Plan Problem List 1. Parastomal hernia without obstruction or gangrene 2. Small bowel obstruction Plan continue tpn support, he is looking more like surgery may become necessary. The pt. mentioned he may request Dr. Tommie Velasco at [facility] who did his last surgery. I will keep the pt. posted on his progress and if needed will arrange surgery vs transfer.
[2017-02-09 19:13] VITALS: BP 148/59
[2017-02-09 23:47] VITALS: BP 144/77
[2017-02-10 02:17] VITALS: BP 158/82
[2017-02-10 08:05] VITALS: BP 148/72
--- NOTE | 2017-02-10 08:41 | Progress Note ---
Subjective General This is an 81-year-old white male for whom consultation was asked on 01/25/2017. He presented to the hospital with a 5 days' history of abdominal pain in the right lower quadrant; it was radiating to the left side. The patient had no nausea and no vomiting. No fever, no chills. The patient had liquid stool which was in the colostomy bag. The patient came and workup showed that patient has appendicitis, which is considered chronic, since it has been going on for 6 days. No abdominal pain no BM, no nausea or vomiting, no dyapnea no chest pain, no fever or chills Physical Exam Vital Signs / I&Os Vital Signs Date Time Temp Pulse Resp B/P Pulse O2 O2 Flow FiO2 Ox Delivery Rate 02/10 0805 98.4 76 16 148/72 93 02/10 0217 98.1 74 16 158/82 96 Room Air 02/09 2347 98.1 83 16 144/77 95 Room Air 02/09 2100 Room Air 02/09 1913 97.5 76 16 148/59 94 Room Air 0.0 02/09 1351 97.5 70 18 142/79 93 02/09 1041 97.9 77 18 126/71 94 I&O 02/10 0000 02/09 1600 02/09 0800 Intake Total 2264 0 2816 Output Total 2488 2060 1496 Balance -224 -0 1320 Lungs Clear to auscultation Cardiovascular Regular rate and rhythm, Normal S1 and S2, No murmurs, gallops, rubs Abdomen Normal bowel sounds (distended), Soft, No tenderness Extremities No edema LAB Results Laboratory Tests 02/10 0535 Chemistry Plasma Sodium (136 - 145 mmol/L) 139 Plasma Potassium (3.5 - 5.1 mmol/L) 4.6 Plasma Chloride (98 - 107 mmol/L) 102 CO2 (Enzymatic) (21 - 32 mmol/L) 29 BUN (7 - 18 mg/dL) 19 Creatinine (0.6 - 1.3 mg/dL) 0.6 Est GFR ( Amer) (mL/min) >60 Est GFR (Non-Af Amer) (mL/min) >60 Glucose (70 - 110 mg/dL) 128 Plasma Calcium (8.5 - 10.1 mg/dL) 8.1 Hematology WBC (4.5 - 11.5 K/uL) 10.4 RBC (4.50 - 5.90 M/uL) 3.40 Hgb (13.5 - 17.5 gm/dL) 10.1 Hct (41.0 - 53.0 %) 31.2 MCV (80 - 100 fL) 92 MCH (26 - 34 pg) 30 RDW (11.6 - 14.8 %) 15.5 Neut % (Auto) (50 - 75 %) 76.1 Lymph % (Auto) (25 - 40 %) 13.1 [place] % (Auto) (3 - 14 %) 7.8 Eos % (Auto) (0 - 4 %) 2.7 Baso % (Auto) (0 - 2 %) 0.3 Plt Count, EDTA (150 - 400 K/uL) 363 PUBS MCHC (31 - 37 g/dL) 33 Assessment and Plan Problem List 1. Small bowel obstruction Plan still on NG tub, but stable 2. HTN (hypertension) Plan controlled continue current meds 3. Anemia Plan stable, monitoring, dose not have any clinical symptoms 4. Appendicitis Plan resolved with conservative management
[2017-02-10 10:26] VITALS: BP 144/76
[2017-02-10 14:22] VITALS: BP 139/72
[2017-02-10 17:51] VITALS: BP 149/71
[2017-02-10 23:19] VITALS: BP 146/76
[2017-02-11 03:48] VITALS: BP 137/55
[2017-02-11 07:16] VITALS: BP 142/60
[2017-02-11 10:09] VITALS: BP 125/64
--- NOTE | 2017-02-11 10:34 | Progress Note ---
Subjective General This is an 81-year-old white male for whom consultation was asked on 01/25/2017. He presented to the hospital with a 5 days' history of abdominal pain in the right lower quadrant; it was radiating to the left side. The patient had no nausea and no vomiting. No fever, no chills. The patient had liquid stool which was in the colostomy bag. The patient came and workup showed that patient has appendicitis, which is considered chronic, since it has been going on for 6 days. Zirconia dizzy while walking around the [place], had to be wheeled in, otherwise doing ok, no dyspnea cp or palpitations, no nausea or vomitng no abd pain, no fever or chills Physical Exam Vital Signs / I&Os Vital Signs Date Time Temp Pulse Resp B/P Pulse O2 O2 Flow FiO2 Ox Delivery Rate 02/11 1009 97.5 80 18 125/64 94 02/11 0716 98.2 86 18 142/60 94 Room Air 0.0 02/11 0348 97.5 69 16 137/55 94 Room Air 02/10 2319 97.9 84 16 146/76 95 Room Air 02/10 2233 Room Air 02/10 1751 97.7 69 18 149/71 96 Room Air 02/10 1716 Room Air 02/10 1422 98.1 73 18 139/72 95 Room Air 02/10 1051 78 18 95 I&O 02/11 0000 02/10 1600 02/10 0800 Intake Total 0 1824 3142 Output Total 1514 1654 1058 Balance -3092 678 8828 General Appearance No acute distress Lungs Clear to auscultation Neck Supple Cardiovascular Regular rate and rhythm, Normal S1 and S2, No murmurs, gallops, rubs Abdomen Soft, No tenderness, distended, hypoactive BS Extremities No edema Skin No Rashes Psych/Mental Status Mood normal Assessment and Plan Problem List 1. HTN (hypertension) Plan controlled continue current meds 2. Anemia Plan stable will take iron when NG is out 3. Small bowel obstruction Plan management by surgery still has NG in 4. Hypothyroidism Plan continue IV synthroid
[2017-02-11 13:04] VITALS: BP 138/64
[2017-02-11 19:11] VITALS: BP 148/66
[2017-02-11 23:09] VITALS: BP 153/63
[2017-02-12 03:19] VITALS: BP 138/67
[2017-02-12 07:20] VITALS: BP 133/55
[2017-02-12 11:09] VITALS: BP 136/57
--- NOTE | 2017-02-12 11:11 | Progress Note ---
Subjective General pt. feels better again today, no pain and passed stool and gas. Physical Exam Vital Signs / I&Os Vital Signs Date Time Temp Pulse Resp B/P Pulse O2 O2 Flow FiO2 Ox Delivery Rate 02/12 0938 94 02/12 0720 97.9 73 18 133/55 94 Room Air 0.0 02/12 0319 98.6 76 18 138/67 94 Room Air 02/11 2309 98.1 72 18 153/63 94 Room Air 02/11 1911 98.1 67 18 148/66 94 Room Air 02/11 1645 Room Air 02/11 1304 97.9 68 18 138/64 94 I&O 02/11 0800 02/11 1600 02/12 0000 Intake Total 3752 1251 1375 Output Total 3197 925 2281 Balance 555 326 -906 General Appearance Alert, Oriented X3, Cooperative, No acute distress Abdomen less gassy, active bowel sounds, stoma has stool and gas, peristomal hernia is soft and easily reducible. Assessment and Plan Problem List 1. Small bowel obstruction 2. Parastomal hernia without obstruction or gangrene Plan I discussed possible surgery on tuesday since conservative management has failed twice. He requested I call Dr. Venessa Velasco so I called the answering service. He is unavailabel this weekend but I will call the office tuesday early to confer. In the mean time I favor continue NG decompression and TPN since having his bowel empty and non distended for potential surgery is an advantage.
--- NOTE | 2017-02-12 12:13 | Progress Note ---
Subjective General This is an 81-year-old white male for whom consultation was asked on 01/25/2017. He presented to the hospital with a 5 days' history of abdominal pain in the right lower quadrant; it was radiating to the left side. The patient had no nausea and no vomiting. No fever, no chills. The patient had liquid stool which was in the colostomy bag. The patient came and workup showed that patient has appendicitis, which is considered chronic, since it has been going on for 6 days. Still has NG tub on no nausea or vomiting, no abd pain, had BM yesterday no cp or dyspnea, will have assesment on Tuesday to consider another surgery Physical Exam Vital Signs / I&Os Vital Signs Date Time Temp Pulse Resp B/P Pulse O2 O2 Flow FiO2 Ox Delivery Rate 02/12 1109 97.7 68 18 136/57 94 Room Air 0.0 02/12 0938 94 02/12 0720 97.9 73 18 133/55 94 Room Air 0.0 02/12 0319 98.6 76 18 138/67 94 Room Air 02/11 2309 98.1 72 18 153/63 94 Room Air 02/11 1911 98.1 67 18 148/66 94 Room Air 02/11 1645 Room Air 02/11 1304 97.9 68 18 138/64 94 I&O 02/12 0000 02/11 1600 02/11 0800 Intake Total 1375 1251 3752 Output Total 2281 925 3197 Balance -906 326 555 Lungs Clear to auscultation Cardiovascular Regular rate and rhythm, Normal S1 and S2, No murmurs, gallops, rubs Abdomen Normal bowel sounds (decreased distention), Soft, No tenderness ( decreased distention) Extremities No edema LAB Results Laboratory Tests 02/12 0609 Chemistry Phosphorus (2.5 - 4.9 mg/dL) 4.8 Plasma Magnesium (1.8 - 2.4 mg/dL) 1.8 Hematology WBC (4.5 - 11.5 K/uL) 6.9 RBC (4.50 - 5.90 M/uL) 3.24 Hgb (13.5 - 17.5 gm/dL) 9.7 Hct (41.0 - 53.0 %) 29.5 MCV (80 - 100 fL) 91 MCH (26 - 34 pg) 30 RDW (11.6 - 14.8 %) 15.4 Neut % (Auto) (50 - 75 %) 66.9 Lymph % (Auto) (25 - 40 %) 18.6 [place] % (Auto) (3 - 14 %) 9.8 Eos % (Auto) (0 - 4 %) 4.2 Baso % (Auto) (0 - 2 %) 0.5 Plt Count, EDTA (150 - 400 K/uL) 348 PUBS MCHC (31 - 37 g/dL) 33 Assessment and Plan Problem List 1. Small bowel obstruction Plan assessment on Tuesday for considering another surgery 2. HTN (hypertension) Plan controlled continue current meds 3. Anemia Plan relatively stable, will monitor
[2017-02-12 14:00] VITALS: BP 143/55
[2017-02-12 18:20] VITALS: BP 135/58
[2017-02-12 22:47] VITALS: BP 131/66
[2017-02-13 02:29] VITALS: BP 130/58
[2017-02-13 06:20] VITALS: BP 139/50
--- NOTE | 2017-02-13 08:42 | Progress Note ---
Subjective General This is an 81-year-old white male for whom consultation was asked on 01/25/2017. He presented to the hospital with a 5 days' history of abdominal pain in the right lower quadrant; it was radiating to the left side. The patient had no nausea and no vomiting. No fever, no chills. The patient had liquid stool which was in the colostomy bag. The patient came and workup showed that patient has appendicitis, which is considered chronic, since it has been going on for 6 days. No abdominal pain, no nause or vomiting Had BM 2 days ago, no fever chills no dyspnea or chest pain Physical Exam Vital Signs / I&Os Vital Signs Date Time Temp Pulse Resp B/P Pulse O2 O2 Flow FiO2 Ox Delivery Rate 02/13 0749 94 02/13 0620 97.3 62 18 139/50 96 Room Air 02/13 0229 97.5 64 18 130/58 94 Room Air 02/12 2247 97.5 71 18 131/66 94 Room Air 02/12 1930 Room Air 02/12 1820 97.7 62 18 135/58 94 Room Air 02/12 1400 97.3 67 18 143/55 95 Room Air 02/12 1109 97.7 68 18 136/57 94 Room Air 0.0 02/12 0938 94 I&O 02/13 0000 02/12 1600 02/12 0800 Intake Total 3013 1324 Output Total 0894 911 4116 Balance 1499 -990 -469 Lungs Clear to auscultation Cardiovascular Regular rate and rhythm, Normal S1 and S2, No murmurs, gallops, rubs Abdomen Normal bowel sounds (distension resolved), Soft, No tenderness Extremities No edema LAB Results Laboratory Tests 02/13 0518 Hematology WBC (4.5 - 11.5 K/uL) 6.5 RBC (4.50 - 5.90 M/uL) 3.31 Hgb (13.5 - 17.5 gm/dL) 10.1 Hct (41.0 - 53.0 %) 29.9 MCV (80 - 100 fL) 90 MCH (26 - 34 pg) 30 RDW (11.6 - 14.8 %) 15.4 Neut % (Auto) (50 - 75 %) 67.0 Lymph % (Auto) (25 - 40 %) 18.6 [place] % (Auto) (3 - 14 %) 9.3 Eos % (Auto) (0 - 4 %) 4.9 Baso % (Auto) (0 - 2 %) 0.2 Plt Count, EDTA (150 - 400 K/uL) 357 PUBS MCHC (31 - 37 g/dL) 34 Assessment and Plan Problem List 1. Small bowel obstruction Plan has NG tub, will have assessment tomorrow for possible surgery 2. HTN (hypertension) Plan controlled continue current meds 3. Anemia Plan no more monitoring was stable 4. Appendicitis Plan resolved
[2017-02-13 15:03] VITALS: BP 137/57
--- NOTE | 2017-02-13 16:08 | Progress Note ---
Subjective General Pt. feels OK, not in pain, passed gas per stoma. Physical Exam Vital Signs / I&Os Vital Signs Date Time Temp Pulse Resp B/P Pulse O2 O2 Flow FiO2 Ox Delivery Rate 02/13 1503 97.5 70 18 137/57 95 Room Air 02/13 0749 94 02/13 0620 97.3 62 18 139/50 96 Room Air 02/13 0229 97.5 64 18 130/58 94 Room Air 02/12 2247 97.5 71 18 131/66 94 Room Air 02/12 1930 Room Air 02/12 1820 97.7 62 18 135/58 94 Room Air I&O 02/12 0800 02/12 1600 02/13 0000 Intake Total 1324 3013 Output Total 6069 991 5717 Balance -469 -990 1499 General Appearance Alert, Oriented X3, Cooperative Abdomen stoma is soft, abdomen is soft and moderately tympanitic, no tenderness Assessment and Plan Problem List 1. Small bowel obstruction Plan continue decompression as last times he bloated on two occasions I will try to call Dr. Venessa Velasco [email or web address] as requested by the patient.
--- NOTE | 2017-02-13 16:08 | Progress Note ---
Subjective General Pt. feels OK, not in pain, passed gas per stoma. Physical Exam Vital Signs / I&Os Vital Signs Date Time Temp Pulse Resp B/P Pulse O2 O2 Flow FiO2 Ox Delivery Rate 02/13 1503 97.5 70 18 137/57 95 Room Air 02/13 0749 94 02/13 0620 97.3 62 18 139/50 96 Room Air 02/13 0229 97.5 64 18 130/58 94 Room Air 02/12 2247 97.5 71 18 131/66 94 Room Air 02/12 1930 Room Air 02/12 1820 97.7 62 18 135/58 94 Room Air I&O 02/12 0800 02/12 1600 02/13 0000 Intake Total 1324 3013 Output Total 2106 878 9727 Balance -469 -990 1499 General Appearance Alert, Oriented X3, Cooperative Abdomen stoma is soft, abdomen is soft and moderately tympanitic, no tenderness Assessment and Plan Problem List 1. Small bowel obstruction Plan continue decompression as last times he bloated on two occasions I will try to call Dr. Venessa Velasco [email or web address] as requested by the patient.
[2017-02-13 19:02] VITALS: BP 141/55
[2017-02-13 22:53] VITALS: BP 130/61
[2017-02-14] VITALS (7 sets, daily range): BP systolic 99–151; BP diastolic 51–76
--- NOTE | 2017-02-14 09:34 | Progress Note ---
Subjective General This is an 81-year-old white male for whom consultation was asked on 01/25/2017. He presented to the hospital with a 5 days' history of abdominal pain in the right lower quadrant; it was radiating to the left side. The patient had no nausea and no vomiting. No fever, no chills. The patient had liquid stool which was in the colostomy bag. The patient came and workup showed that patient has appendicitis, which is considered chronic, since it has been going on for 6 days. Doign fine no abd. pain or nausea vomiting, no BM today, no fever chills, no dyspnea or chest pain Physical Exam Vital Signs / I&Os Vital Signs Date Time Temp Pulse Resp B/P Pulse O2 O2 Flow FiO2 Ox Delivery Rate 02/14 0729 97.5 62 18 142/51 98 Room Air 0.0 02/14 0333 0.0 02/14 0221 98.6 69 15 143/76 98 Room Air 02/13 2253 98.4 67 17 130/61 96 Room Air 02/13 1902 98.4 63 18 141/55 95 Room Air 02/13 1608 Room Air 02/13 1503 97.5 70 18 137/57 95 Room Air I&O 02/14 0000 02/13 1600 02/13 0800 Intake Total 1395 1845 1121 Output Total 1400 1006 950 Balance -5 839 171 Lungs Clear to auscultation Cardiovascular Regular rate and rhythm, Normal S1 and S2, No murmurs, gallops, rubs Abdomen Normal bowel sounds, Soft, No tenderness Extremities No edema Assessment and Plan Problem List 1. Small bowel obstruction Plan assessment today for possible surgery 2. HTN (hypertension) Plan controlled continue current meds 3. Hypothyroidism Plan continue thyroid medicine
--- NOTE | 2017-02-14 17:49 | Progress Note ---
Subjective General Pt. reports no new problems, still passing gas. Physical Exam Vital Signs / I&Os Vital Signs Date Time Temp Pulse Resp B/P Pulse O2 O2 Flow FiO2 Ox Delivery Rate 02/14 1425 97.5 69 20 150/59 95 Room Air 02/14 1058 98.2 81 20 99/52 94 Room Air 0.0 02/14 0950 Room Air 0.0 02/14 0729 97.5 62 18 142/51 98 Room Air 0.0 02/14 0333 0.0 02/14 0221 98.6 69 15 143/76 98 Room Air 02/13 2253 98.4 67 17 130/61 96 Room Air 02/13 1902 98.4 63 18 141/55 95 Room Air I&O 02/13 0800 02/13 1600 02/14 0000 Intake Total 1121 1845 1395 Output Total 950 1006 1400 Balance 171 839 -5 General Appearance Alert, Oriented X3, Cooperative Abdomen still the same, a little bloated, stoma is soft, no localized tenderness Assessment and Plan Problem List 1. Small bowel obstruction Plan I discussed the situation with Dr. Venessa Velasco who described an almost identical problem in the past with this pt. He advised a slow course and in the past sent Mr. Brady home with a draining PEG and TPN. I think that may the direction we are headed and will consider doing this later in the week unless he unbloats and opens up.
[2017-02-15 02:10] VITALS: BP 145/54
[2017-02-15 06:41] VITALS: BP 130/48
--- NOTE | 2017-02-15 07:18 | Progress Note ---
Subjective General Pt. without new complaints. Physical Exam Vital Signs / I&Os Vital Signs Date Time Temp Pulse Resp B/P Pulse O2 O2 Flow FiO2 Ox Delivery Rate 02/15 0641 97.9 65 20 130/48 92 Room Air 0.0 02/15 0210 97.5 71 20 145/54 94 Room Air 02/15 0010 0.0 02/14 2226 97.9 70 20 138/60 Room Air 0.0 02/14 1842 74 148/56 96 02/14 1815 97.7 95 20 151/54 95 Room Air 02/14 1425 97.5 69 20 150/59 95 Room Air 02/14 1058 98.2 81 20 99/52 94 Room Air 0.0 02/14 0950 Room Air 0.0 02/14 0729 97.5 62 18 142/51 98 Room Air 0.0 I&O 02/14 0800 02/14 1600 02/15 0000 Intake Total 1296 1464 Output Total 1006 1337 1759 Balance 290 127 -1759 General Appearance Alert, Oriented X3, Cooperative Abdomen abdomen is stable, still tympanitic but not tight or tender. Assessment and Plan Problem List 1. Small bowel obstruction Plan set up PEG for next OR day, decompress until then. Then can set up home or SNF on PEG drainage and TPN. Will place tunneled catheter also (groshong/cototn etc)
--- NOTE | 2017-02-15 09:14 | Progress Note ---
Subjective General This is an 81-year-old white male for whom consultation was asked on 01/25/2017. He presented to the hospital with a 5 days' history of abdominal pain in the right lower quadrant; it was radiating to the left side. The patient had no nausea and no vomiting. No fever, no chills. The patient had liquid stool which was in the colostomy bag. The patient came and workup showed that patient has appendicitis, which is considered chronic, since it has been going on for 6 days. No abdominal pain, no nausea or vomiting, no dyspnea cp, plan to have PEG tub placement on Physical Exam Vital Signs / I&Os Vital Signs Date Time Temp Pulse Resp B/P Pulse O2 O2 Flow FiO2 Ox Delivery Rate 02/15 0641 97.9 65 20 130/48 92 Room Air 0.0 02/15 0210 97.5 71 20 145/54 94 Room Air 02/15 0010 0.0 02/14 2226 97.9 70 20 138/60 Room Air 0.0 02/14 1842 74 148/56 96 02/14 1815 97.7 95 20 151/54 95 Room Air 02/14 1425 97.5 69 20 150/59 95 Room Air 02/14 1058 98.2 81 20 99/52 94 Room Air 0.0 02/14 0950 Room Air 0.0 I&O 02/15 0000 02/14 1600 02/14 0800 Intake Total 1464 1296 Output Total 1759 1337 1006 Balance -1759 127 290 Lungs Clear to auscultation Cardiovascular Regular rate and rhythm, Normal S1 and S2, No murmurs, gallops, rubs Abdomen Normal bowel sounds, Soft, No tenderness (disended) Extremities No edema Assessment and Plan Problem List 1. Small bowel obstruction Plan will have PEG tub on 2. HTN (hypertension) Plan controlled continue current meds 3. Anemia Plan stable will not check any more
[2017-02-15 10:46] VITALS: BP 128/50
[2017-02-15 14:25] VITALS: BP 139/76
[2017-02-15 18:25] VITALS: BP 143/66
[2017-02-15 23:11] VITALS: BP 167/76
[2017-02-16 03:19] VITALS: BP 126/67
[2017-02-16 06:33] VITALS: BP 130/79
--- NOTE | 2017-02-16 08:13 | Progress Note ---
Subjective General This is an 81-year-old white male for whom consultation was asked on 01/25/2017. He presented to the hospital with a 5 days' history of abdominal pain in the right lower quadrant; it was radiating to the left side. The patient had no nausea and no vomiting. No fever, no chills. The patient had liquid stool which was in the colostomy bag. The patient came and workup showed that patient has appendicitis, which is considered chronic, since it has been going on for 6 days. No abdominal pain, no fever or chills, colostomy beg is empty this AM, no nausea or vomiting Physical Exam Vital Signs / I&Os Vital Signs Date Time Temp Pulse Resp B/P Pulse O2 O2 Flow FiO2 Ox Delivery Rate 02/16 0633 98.1 79 18 130/79 94 Room Air 02/16 0319 98.8 64 18 126/67 93 Room Air 02/15 2311 97.9 79 18 167/76 96 Room Air 02/15 1944 Room Air 02/15 1825 97.5 78 18 143/66 93 Room Air 02/15 1425 97.5 81 18 139/76 94 Room Air 02/15 1046 98.1 67 18 128/50 93 Room Air 0.0 I&O 02/16 0000 02/15 1600 02/15 0800 Intake Total 2660 Output Total 1597 823 375 Balance -1597 -823 2285 Lungs Clear to auscultation Cardiovascular Regular rate and rhythm, Normal S1 and S2, No murmurs, gallops, rubs Abdomen Soft, No tenderness (moderat distended) Extremities No edema Assessment and Plan Problem List 1. Small bowel obstruction Plan To have PEG tub in AM 2. HTN (hypertension) Plan controlled continue current meds, 3. Iron deficiency anemia Status Acute Onset Date Unknown Plan continue iron supplement
[2017-02-16 10:47] VITALS: BP 140/65
[2017-02-16 14:55] VITALS: BP 133/54
[2017-02-16 17:40] VITALS: BP 133/70
[2017-02-16 22:35] VITALS: BP 150/56
[2017-02-17] VITALS (14 sets, daily range): BP systolic 107–161; BP diastolic 46–75
--- NOTE | 2017-02-17 07:29 | Progress Note ---
Subjective General This is an 81-year-old white male for whom consultation was asked on 01/25/2017. He presented to the hospital with a 5 days' history of abdominal pain in the right lower quadrant; it was radiating to the left side. The patient had no nausea and no vomiting. No fever, no chills. The patient had liquid stool which was in the colostomy bag. The patient came and workup showed that patient has appendicitis, which is considered chronic, since it has been going on for 6 days. Will have procedure today, no nausea or vomiting, no abd pain, no fever or chills, had BM yesterday Physical Exam Vital Signs / I&Os Vital Signs Date Time Temp Pulse Resp B/P Pulse O2 O2 Flow FiO2 Ox Delivery Rate 02/17 0654 98.1 68 18 130/51 94 Room Air 02/17 0327 98.8 75 15 146/61 94 Room Air 02/17 0018 0.0 02/16 2235 98.6 72 16 150/56 95 Room Air 0.0 02/16 1740 71 133/70 02/16 1455 97.5 67 20 133/54 94 Room Air 0.0 02/16 1047 98.1 69 18 140/65 93 Room Air 0.0 I&O 02/17 0000 02/16 1600 02/16 0800 Intake Total 0 1443 4108 Output Total 6489 988 7448 Balance -9098 724 8904 Lungs Clear to auscultation Cardiovascular Regular rate and rhythm, Normal S1 and S2, No murmurs, gallops, rubs Abdomen Normal bowel sounds, Soft, No tenderness Extremities No edema Assessment and Plan Problem List 1. Small bowel obstruction Plan will have procedure done today, still on NG tub, symptoms controlled 2. HTN (hypertension) Plan controlled continue current meds 3. Anemia Plan no clinical symptoms was stable last time checked
--- NOTE | 2017-02-17 07:29 | Progress Note ---
Subjective General This is an 81-year-old white male for whom consultation was asked on 01/25/2017. He presented to the hospital with a 5 days' history of abdominal pain in the right lower quadrant; it was radiating to the left side. The patient had no nausea and no vomiting. No fever, no chills. The patient had liquid stool which was in the colostomy bag. The patient came and workup showed that patient has appendicitis, which is considered chronic, since it has been going on for 6 days. Will have procedure today, no nausea or vomiting, no abd pain, no fever or chills, had BM yesterday Physical Exam Vital Signs / I&Os Vital Signs Date Time Temp Pulse Resp B/P Pulse O2 O2 Flow FiO2 Ox Delivery Rate 02/17 0654 98.1 68 18 130/51 94 Room Air 02/17 0327 98.8 75 15 146/61 94 Room Air 02/17 0018 0.0 02/16 2235 98.6 72 16 150/56 95 Room Air 0.0 02/16 1740 71 133/70 02/16 1455 97.5 67 20 133/54 94 Room Air 0.0 02/16 1047 98.1 69 18 140/65 93 Room Air 0.0 I&O 02/17 0000 02/16 1600 02/16 0800 Intake Total 0 1443 4108 Output Total 0596 948 2594 Balance -9917 389 0394 Lungs Clear to auscultation Cardiovascular Regular rate and rhythm, Normal S1 and S2, No murmurs, gallops, rubs Abdomen Normal bowel sounds, Soft, No tenderness Extremities No edema Assessment and Plan Problem List 1. Small bowel obstruction Plan will have procedure done today, still on NG tub, symptoms controlled 2. HTN (hypertension) Plan controlled continue current meds 3. Anemia Plan no clinical symptoms was stable last time checked
--- NOTE | 2017-02-17 10:38 | OPERATIVE REPORT ---
DATE OF SURGERY: 02/17/2017 SURGEON: Lester Paredes MD PREOPERATIVE DIAGNOSIS: 1. Chronic small-bowel obstruction POSTOPERATIVE DIAGNOSIS: 1. Chronic small-bowel obstruction PROCEDURES PERFORMED: 1. Left subclavian tunneled catheter (Groshong) placement 2. PEG tube placement ANESTHESIA: Total IV general. INDICATIONS: The patient is an 81-year-old man with numerous previous surgeries and a chronic refractory ileus. In the past, he has been managed with outpatient PEG drainage and TPN. In the hospital over 3 weeks, attempts to get him eating again have been unsuccessful. SURGICAL TECHNIQUE: The patient was taken to the endoscopy suite, where total IV general was administered and the patient was placed in the supine Trendelenburg position. A sterile prep and drape was done and a local anesthetic of 0.5% Marcaine with epinephrine was infiltrated. The left subclavian vein was accessed on first pass and Seldinger technique was used to place a Groshong catheter in the superior vena cava. The catheter was tunneled onto the anterior chest wall and the adhesion cuff was placed about 2 cm above the exit site. The catheter des and flushed and adaptors were placed for use. A 4-0 nylon was used to suture to the skin to prevent premature displacement. In supine position, the endoscope was advanced into the stomach. The NG tube was also removed at that point. The gastric body was insufflated. A local anesthetic was used on the anterior abdominal wall at the scar from the old PEG tube site. The Angiocath was inserted and the loop wire were grasped with a snare and pulled out the oropharynx. The PEG tube was pulled retrograde out the anterior abdominal wall. Adaptors were placed and the patient left in stable condition.
--- NOTE | 2017-02-17 11:07 | DIAGNOSTIC IMAGING REPORT ---
PROCEDURE: XR PICC/PORT PLACEMENT W/C-ARM INDICATION: SBO,APPENDICITIS,N-G TUBE IN PLACE, TPN RUNNING TECHNIQUE: C-arm fluoroscopy provided to Dr. Sanches for central line placement Fluoroscopy time 0.15 minutes 2.2 mGy). COMPARISON: None. FINDINGS: AP C-arm five views. There is a central line in place and the tip is in the SVC. Small amount of contrast was injected. IMPRESSION: 1. C-arm fluoroscopy for central line placement (performed by Dr. Sanches
--- NOTE | 2017-02-17 11:37 | DIAGNOSTIC IMAGING REPORT ---
PROCEDURE: XR CHEST 1 VIEW INDICATION: SBO,APPENDICITIS,N-G TUBE IN PLACE, TPN RUNNING TECHNIQUE: Portable AP view 10:10 a.m. COMPARISON: Chest 01/26/2017 FINDINGS: There is a new central line on the left. The tips in the SVC. There is no pneumothorax. IMPRESSION: 1. New left central line. Tip is in the superior vena cava. No pneumothorax.
[2017-02-18 02:51] VITALS: BP 137/60
[2017-02-18 07:00] VITALS: BP 124/51
[2017-02-18 10:11] VITALS: BP 104/55
--- NOTE | 2017-02-18 13:51 | Progress Note ---
Subjective General This is an 81-year-old white male with a significant past medical history of hypertension, hypothyroidism, hyperlipidemia, degenerative joint disease, sleep apnea, prostate CA, cerebrovascular disease status post CVA, CHF, who presented to [facility] emergency department with complaints of abdominal pain. [facility] ER evaluation was consistent with acute appendicitis. The patients appendicitis had resolved however the patient was found to have an upstream small bowel obstruction as a result. Patient had a similar problem in the past, and in this instance the best possible scenario was for the patient to have a decompressing PEG tube and colostomy. Patient will obtain nutrition through TPN. Patient is otherwise stable, no events after the procedure was performed. Patient is currently stable. Constitutional Denies: Fever, Chills, Sweats, Weakness, Malaise, Other. Eyes Denies: Pain, Vision Change, Conjunctival Inflammation, Eyelid Inflammation, Redness, Other. Respiratory Denies: Cough, Dry, SOB w/exertion, Wheezing, Hemoptysis, Pleuritic Pain, Sputum , Other. Cardiovascular Denies: Chest Pain, Palpitations, Orthopnea, PND, Edema, Light-headedness, Other. Gastrointestinal Denies: Nausea, Vomiting, Abdominal Pain, Diarrhea, Constipation, Melena, Hematochezia, Other. Genitourinary Denies: Dysuria, Frequency, Incontinence, Hematuria, Retention, Other. Musculoskeletal Denies: Neck Pain, Shoulder Pain, Arm Pain, Back Pain, Hand Pain, Leg Pain, Foot Pain, Other. Skin Denies: Rash, Lesions, Jaundice, Bruising, Other. Neurological Denies: Weakness, Numbness, Incoordination, Change in speech, Confusion, Seizures, Other. Physical Exam Vital Signs / I&Os Vital Signs Date Time Temp Pulse Resp B/P Pulse O2 O2 Flow FiO2 Ox Delivery Rate 02/18 1100 88 96 02/18 1011 97.9 76 20 104/55 93 Room Air 0.0 02/18 0835 Room Air 02/18 0700 98.4 76 15 124/51 96 Nasal 2.0 Cannula 02/18 0251 98.6 59 15 137/60 99 Nasal 2.0 Cannula 02/17 2236 98.2 68 15 121/59 97 Nasal 2.0 Cannula 02/17 2037 Nasal 2.0 Cannula 02/17 1900 97.9 02/17 1836 75 18 133/52 96 05/25 1505 98.6 70 18 144/67 96 Nasal 2.0 Cannula I&O 02/17 0800 02/17 1600 02/18 0000 Intake Total 2968 250 0 Output Total 1356 1140 999 Balance 1612 -890 -999 General Appearance Alert, Oriented X3, No acute distress HEENT Atraumatic, PERRLA, Moist mucous membranes Lungs Normal exam, Clear to auscultation Cardiovascular Regular rate and rhythm, Normal S1 and S2, No murmurs, gallops, rubs Abdomen Soft, - peg site looks appropriate Extremities No clubbing, No edema, Normal pulses Skin No Breakdown, No Significant Lesions Neurological Normal tone, Sensation intact, Cranial nerves intact, No lateralizing signs LAB Results Laboratory Tests 02/18 0520 Chemistry Plasma Sodium (136 - 145 mmol/L) 139 Plasma Potassium (3.5 - 5.1 mmol/L) 4.0 Plasma Chloride (98 - 107 mmol/L) 103 CO2 (Enzymatic) (21 - 32 mmol/L) 29 BUN (7 - 18 mg/dL) 20 Creatinine (0.6 - 1.3 mg/dL) 0.7 Est GFR ( Amer) (mL/min) >60 Est GFR (Non-Af Amer) (mL/min) >60 Glucose (70 - 110 mg/dL) 127 Plasma Calcium (8.5 - 10.1 mg/dL) 7.9 Hematology WBC (4.5 - 11.5 K/uL) 7.7 RBC (4.50 - 5.90 M/uL) 3.20 Hgb (13.5 - 17.5 gm/dL) 9.7 Hct (41.0 - 53.0 %) 29.2 MCV (80 - 100 fL) 91 MCH (26 - 34 pg) 30 RDW (11.6 - 14.8 %) 15.5 Neut % (Auto) (50 - 75 %) 69.0 Lymph % (Auto) (25 - 40 %) 15.7 [place] % (Auto) (3 - 14 %) 8.6 Eos % (Auto) (0 - 4 %) 6.4 Baso % (Auto) (0 - 2 %) 0.3 Plt Count, EDTA (150 - 400 K/uL) 268 PUBS MCHC (31 - 37 g/dL) 33 Assessment and Plan Problem List 1. Small bowel obstruction Plan - will continue with decompressing PEG - will monitor for improvement - patient is currently recieving nutrtion through TPN - will hold medications going through peg 2. Parastomal hernia without obstruction or gangrene 3. HTN (hypertension) Plan - stable no evidence of major change - will c/w current treatment 4. CHF (congestive heart failure) Plan - chronic stable condition - no evidence of exacerbation 5. Hypothyroidism Plan - stable - will monitor 6. Iron deficiency anemia Status Acute Onset Date Unknown Plan - will continue with iron replacement therapy
[2017-02-18 13:58] VITALS: BP 117/58
--- NOTE | 2017-02-18 16:07 | Progress Note ---
Subjective General Mr. Brady has a long standing partial sbo that has prevented effective eating and requires a gastric drain and TPN. He has had surgery in the past without resolving the problem and his previous surgeon strongly recommended against another futile surgical intervention. He has a "hostile abdomen" with prior radiation therapy, failed mesh peristomal hernia repair, and previous stool peritonitis after a colon cancer surgery. In the past he was able to get back on a diet but this was over 6 months ago and he is once again in the position of being unable to eat without severe bloating, pain, and vomiting. His treatment length is potentially for months, but can't be fully determined at this point. The point of obstruction is not clear and attempting to feed downstream is pointless since his whole colon bloats up. The peristomal hernia is soft and reducible and is not clinically the site of obstruction. The TPN formulation for out patient treatment will come from our pharmacologists. 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 Pharmacy has been ordering the labs.
--- NOTE | 2017-02-18 16:07 | Progress Note ---
Subjective General Mr. Brady has a long standing partial sbo that has prevented effective eating and requires a gastric drain and TPN. He has had surgery in the past without resolving the problem and his previous surgeon strongly recommended against another futile surgical intervention. He has a "hostile abdomen" with prior radiation therapy, failed mesh peristomal hernia repair, and previous stool peritonitis after a colon cancer surgery. In the past he was able to get back on a diet but this was over 6 months ago and he is once again in the position of being unable to eat without severe bloating, pain, and vomiting. His treatment length is potentially for months, but can't be fully determined at this point. The point of obstruction is not clear and attempting to feed downstream is pointless since his whole colon bloats up. The peristomal hernia is soft and reducible and is not clinically the site of obstruction. The TPN formulation for out patient treatment will come from our pharmacologists. 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 Pharmacy has been ordering the labs.
[2017-02-18 19:22] VITALS: BP 141/51
[2017-02-18 22:27] VITALS: BP 128/73
[2017-02-19 02:50] VITALS: BP 137/62
[2017-02-19 07:01] VITALS: BP 152/54
[2017-02-19 10:00] VITALS: BP 110/53
--- NOTE | 2017-02-19 12:30 | Progress Note ---
Subjective General Pt is doing well with peg decompression and TPN. Physical Exam Vital Signs / I&Os Vital Signs Date Time Temp Pulse Resp B/P Pulse O2 O2 Flow FiO2 Ox Delivery Rate 02/19 1000 97.5 88 20 110/53 96 Room Air 0.0 02/19 0701 98.2 68 20 152/54 96 Room Air 0.0 02/19 0250 98.4 66 17 137/62 95 Room Air 02/18 2227 98.1 69 19 128/73 96 Room Air 02/18 2045 Room Air 0.0 02/18 1922 98.2 67 20 141/51 97 Room Air 0.0 02/18 1358 97.3 72 20 117/58 96 Room Air 0.0 I&O 02/18 0800 02/18 1600 02/19 0000 Intake Total 3573 0 1840 Output Total 1707 1037 1207 Balance 1866 -1037 633 General Appearance Alert, Oriented X3, Cooperative HEENT EOMI, Moist mucous membranes Abdomen Soft, No tenderness, No guarding Assessment and Plan Problem List 1. Small bowel obstruction Plan failed feeding attempts so will send him out on tpn and recreational sips and maybe at some future date gradually try to ramp up his diet and get him off TPN.
--- NOTE | 2017-02-19 13:29 | Progress Note ---
Subjective General Pt seen and examined Patient is an 81 year old gentlemean with a significant history of hypertension, hypothyroidism, hyperlipidemia, degenerative joint disease, sleep apnea, prostate CA, cerebrovascular disease status post CVA, CHF, who presented to [facility] emergency department with complaints of abdominal pain. [facility] ER evaluation was consistent with acute appendicitis. The patients appendicitis had resolved however the patient was found to have an upstream small bowel obstruction as a result. Patient had a similar problem in the past, and in this instance the best possible scenario was for the patient to have a decompressing PEG tube and colostomy. Patient will obtain nutrition through TPN. Patient is otherwise stable, no events after the procedure was performed. Patient is currently stable. Constitutional Denies: Fever, Chills, Sweats, Weakness, Malaise, Other. ENT Denies: Ear Pain, Ear Discharge, Nose Pain, Nasal Discharge, Nasal Congestion, Mouth Pain, Mouth Swelling, Throat Pain, Throat Swelling, Other. Respiratory Denies: Cough, Dry, SOB w/exertion, Wheezing, Hemoptysis, Pleuritic Pain, Sputum , Other. Cardiovascular Denies: Chest Pain, Palpitations, Orthopnea, PND, Edema, Light-headedness, Other. Gastrointestinal Denies: Nausea, Vomiting, Abdominal Pain, Diarrhea, Constipation, Melena, Hematochezia, Other. Genitourinary Denies: Dysuria, Frequency, Incontinence, Hematuria, Retention, Other. Musculoskeletal Denies: Neck Pain, Shoulder Pain, Arm Pain, Back Pain, Hand Pain, Leg Pain, Foot Pain, Other. Skin Denies: Rash, Lesions, Jaundice, Bruising, Other. Physical Exam Vital Signs / I&Os Vital Signs Date Time Temp Pulse Resp B/P Pulse O2 O2 Flow FiO2 Ox Delivery Rate 02/19 1000 97.5 88 20 110/53 96 Room Air 0.0 02/19 0701 98.2 68 20 152/54 96 Room Air 0.0 02/19 0250 98.4 66 17 137/62 95 Room Air 02/18 2227 98.1 69 19 128/73 96 Room Air 02/18 2045 Room Air 0.0 02/18 1922 98.2 67 20 141/51 97 Room Air 0.0 02/18 1358 97.3 72 20 117/58 96 Room Air 0.0 I&O 02/18 0800 02/18 1600 02/19 0000 Intake Total 3573 0 1840 Output Total 1707 1037 1207 Balance 1866 -1037 633 General Appearance Alert, Oriented X3, No acute distress HEENT Atraumatic, PERRLA, Moist mucous membranes Lungs Clear to auscultation Cardiovascular Regular rate and rhythm, Normal S1 and S2, No murmurs, gallops, rubs Abdomen Soft, No tenderness, No guarding Extremities No clubbing, No edema, No tenderness Skin No Breakdown Neurological Normal tone, Cranial nerves intact, Strength 5/5 x4 ext's Psych/Mental Status Mood normal Assessment and Plan Problem List 1. Small bowel obstruction Plan - will continue with decompressing PEG - will monitor for improvement - patient is currently recieving nutrtion through TPN - will hold medications going through peg 2. HTN (hypertension) Plan - stable no evidence of major change - will c/w current treatment 3. CHF (congestive heart failure) Plan - chronic stable condition - no evidence of exacerbation 4. Hypothyroidism Plan - stable - will monitor 5. Iron deficiency anemia Status Acute Onset Date Unknown Plan - will c/w iron replacement therapy as an out patient with iron infusions to avoid po intake
--- NOTE | 2017-02-19 13:29 | Progress Note ---
Subjective General Pt seen and examined Patient is an 81 year old gentlemean with a significant history of hypertension, hypothyroidism, hyperlipidemia, degenerative joint disease, sleep apnea, prostate CA, cerebrovascular disease status post CVA, CHF, who presented to [facility] emergency department with complaints of abdominal pain. [facility] ER evaluation was consistent with acute appendicitis. The patients appendicitis had resolved however the patient was found to have an upstream small bowel obstruction as a result. Patient had a similar problem in the past, and in this instance the best possible scenario was for the patient to have a decompressing PEG tube and colostomy. Patient will obtain nutrition through TPN. Patient is otherwise stable, no events after the procedure was performed. Patient is currently stable. Constitutional Denies: Fever, Chills, Sweats, Weakness, Malaise, Other. ENT Denies: Ear Pain, Ear Discharge, Nose Pain, Nasal Discharge, Nasal Congestion, Mouth Pain, Mouth Swelling, Throat Pain, Throat Swelling, Other. Respiratory Denies: Cough, Dry, SOB w/exertion, Wheezing, Hemoptysis, Pleuritic Pain, Sputum , Other. Cardiovascular Denies: Chest Pain, Palpitations, Orthopnea, PND, Edema, Light-headedness, Other. Gastrointestinal Denies: Nausea, Vomiting, Abdominal Pain, Diarrhea, Constipation, Melena, Hematochezia, Other. Genitourinary Denies: Dysuria, Frequency, Incontinence, Hematuria, Retention, Other. Musculoskeletal Denies: Neck Pain, Shoulder Pain, Arm Pain, Back Pain, Hand Pain, Leg Pain, Foot Pain, Other. Skin Denies: Rash, Lesions, Jaundice, Bruising, Other. Physical Exam Vital Signs / I&Os Vital Signs Date Time Temp Pulse Resp B/P Pulse O2 O2 Flow FiO2 Ox Delivery Rate 02/19 1000 97.5 88 20 110/53 96 Room Air 0.0 02/19 0701 98.2 68 20 152/54 96 Room Air 0.0 02/19 0250 98.4 66 17 137/62 95 Room Air 02/18 2227 98.1 69 19 128/73 96 Room Air 02/18 2045 Room Air 0.0 02/18 1922 98.2 67 20 141/51 97 Room Air 0.0 02/18 1358 97.3 72 20 117/58 96 Room Air 0.0 I&O 02/18 0800 02/18 1600 02/19 0000 Intake Total 3573 0 1840 Output Total 1707 1037 1207 Balance 1866 -1037 633 General Appearance Alert, Oriented X3, No acute distress HEENT Atraumatic, PERRLA, Moist mucous membranes Lungs Clear to auscultation Cardiovascular Regular rate and rhythm, Normal S1 and S2, No murmurs, gallops, rubs Abdomen Soft, No tenderness, No guarding Extremities No clubbing, No edema, No tenderness Skin No Breakdown Neurological Normal tone, Cranial nerves intact, Strength 5/5 x4 ext's Psych/Mental Status Mood normal Assessment and Plan Problem List 1. Small bowel obstruction Plan - will continue with decompressing PEG - will monitor for improvement - patient is currently recieving nutrtion through TPN - will hold medications going through peg 2. HTN (hypertension) Plan - stable no evidence of major change - will c/w current treatment 3. CHF (congestive heart failure) Plan - chronic stable condition - no evidence of exacerbation 4. Hypothyroidism Plan - stable - will monitor 5. Iron deficiency anemia Status Acute Onset Date Unknown Plan - will c/w iron replacement therapy as an out patient with iron infusions to avoid po intake
[2017-02-19 14:51] VITALS: BP 148/63
[2017-02-19 19:59] VITALS: BP 133/65
[2017-02-19 22:54] VITALS: BP 149/57
[2017-02-20 02:21] VITALS: BP 152/58
[2017-02-20 06:19] VITALS: BP 142/51
[2017-02-20 10:22] VITALS: BP 148/70
--- NOTE | 2017-02-20 13:40 | Progress Note ---
Subjective General No complaints, pt. on peg drainage and tpn. Physical Exam Vital Signs / I&Os Vital Signs Date Time Temp Pulse Resp B/P Pulse O2 O2 Flow FiO2 Ox Delivery Rate 02/20 1030 Room Air 02/20 1022 98.2 65 16 148/70 94 Room Air 02/20 0619 97.7 63 16 142/51 94 Room Air 02/20 0221 97.7 74 15 152/58 96 Room Air 02/19 2254 97.3 74 16 149/57 96 Room Air 02/19 2000 Room Air 02/19 1959 98.2 78 20 133/65 95 02/19 1451 98.2 71 20 148/63 94 I&O 02/19 0800 02/19 1600 02/20 0000 Intake Total 3189 0 1891 Output Total 1675 1528 1462 Balance 1514 -1528 429 General Appearance Alert, Oriented X3, Cooperative Abdomen Soft, No tenderness, No guarding, mild tympany Assessment and Plan Problem List 1. Small bowel obstruction Plan await autherization for home tpn.
[2017-02-20 14:49] VITALS: BP 126/71
--- NOTE | 2017-02-20 15:10 | Progress Note ---
Subjective General Patient seen and examined. Patient has no complaints at the moment. Patient is otherwise stable. Constitutional Denies: Fever, Chills, Sweats, Weakness, Malaise, Other. Eyes Denies: Pain, Vision Change, Conjunctival Inflammation, Eyelid Inflammation, Redness, Other. Respiratory Denies: Cough, Dry, SOB w/exertion, Wheezing, Hemoptysis, Pleuritic Pain, Sputum , Other. Cardiovascular Denies: Chest Pain, Palpitations, Orthopnea, PND, Edema, Light-headedness, Other. Gastrointestinal Denies: Nausea, Vomiting, Abdominal Pain, Diarrhea, Constipation, Melena, Hematochezia, Other. Genitourinary Denies: Dysuria, Frequency, Incontinence, Hematuria, Retention, Other. Musculoskeletal Denies: Neck Pain, Shoulder Pain, Arm Pain, Back Pain, Hand Pain, Leg Pain, Foot Pain, Other. Physical Exam Vital Signs / I&Os Vital Signs Date Time Temp Pulse Resp B/P Pulse O2 O2 Flow FiO2 Ox Delivery Rate 02/20 1449 97.9 66 16 126/71 95 Room Air 0.0 02/20 1030 Room Air 02/20 1022 98.2 65 16 148/70 94 Room Air 02/20 0619 97.7 63 16 142/51 94 Room Air 02/20 0221 97.7 74 15 152/58 96 Room Air 02/19 2254 97.3 74 16 149/57 96 Room Air 02/19 2000 Room Air 02/19 1959 98.2 78 20 133/65 95 I&O 02/19 0800 02/19 1600 02/20 0000 Intake Total 3189 0 1891 Output Total 1675 1528 1462 Balance 1514 -1528 429 General Appearance Alert, Oriented X3, No acute distress HEENT Atraumatic, PERRLA, Moist mucous membranes Lungs Clear to auscultation, Normal air movement Cardiovascular Regular rate and rhythm, No murmurs, gallops, rubs Abdomen Normal bowel sounds, Soft, No tenderness, No guarding, No rebound Extremities No cyanosis, No edema, Normal pulses, No tenderness Skin No Breakdown Neurological Normal speech, Sensation intact, Cranial nerves intact Psych/Mental Status Mood normal Assessment and Plan Problem List 1. Small bowel obstruction Plan - peg draining adequately - awaiting approval for tpn
[2017-02-20 18:42] VITALS: BP 159/74
[2017-02-20 22:20] VITALS: BP 160/80
[2017-02-21] VITALS (7 sets, daily range): BP systolic 126–160; BP diastolic 55–70
--- NOTE | 2017-02-21 11:41 | Progress Note ---
Subjective General Pt. was resting, he has no complaints when I woke him up. Physical Exam Vital Signs / I&Os Vital Signs Date Time Temp Pulse Resp B/P Pulse O2 O2 Flow FiO2 Ox Delivery Rate 02/21 1040 98.8 77 19 146/68 96 Room Air 02/21 0859 Room Air 02/21 0605 97.5 82 20 127/59 96 Room Air 0.0 02/21 0253 98.4 64 18 136/65 94 Room Air 02/21 0037 Room Air 02/21 0020 71 143/70 02/20 2220 98.4 78 18 160/80 94 Room Air 02/20 1842 98.2 64 16 159/74 96 Room Air 02/20 1449 97.9 66 16 126/71 95 Room Air 0.0 I&O 02/20 0800 02/20 1600 02/21 0000 Intake Total 2478 0 2788 Output Total 1758 1540 995 Balance 720 -1540 1793 General Appearance Alert, Oriented X3, Cooperative Abdomen belly is soft, mild tympany, normal bowel sounds, stoma is soft and non tender at herniated site. Assessment and Plan Problem List 1. Small bowel obstruction Plan await home tpn authorization to discharge
--- NOTE | 2017-02-21 14:43 | Progress Note ---
Subjective General Pt seen and examined. No complaints, no acute events overnight Constitutional Denies: Fever, Chills, Sweats, Weakness, Malaise, Other. Respiratory Denies: Cough, Dry, SOB w/exertion, Wheezing, Hemoptysis, Pleuritic Pain, Sputum , Other. Cardiovascular Denies: Chest Pain, Palpitations, Orthopnea, PND, Edema, Light-headedness, Other. Genitourinary Denies: Dysuria, Frequency, Incontinence, Hematuria, Retention, Other. Musculoskeletal Denies: Neck Pain, Shoulder Pain, Arm Pain, Back Pain, Hand Pain, Leg Pain, Foot Pain, Other. Skin Denies: Rash, Lesions, Jaundice, Bruising, Other. Physical Exam Vital Signs / I&Os Vital Signs Date Time Temp Pulse Resp B/P Pulse O2 O2 Flow FiO2 Ox Delivery Rate 02/21 1420 98.4 69 18 126/55 94 Room Air 02/21 1040 98.8 77 19 146/68 96 Room Air 02/21 0859 Room Air 02/21 0605 97.5 82 20 127/59 96 Room Air 0.0 02/21 0253 98.4 64 18 136/65 94 Room Air 02/21 0037 Room Air 02/21 0020 71 143/70 02/20 2220 98.4 78 18 160/80 94 Room Air 02/20 1842 98.2 64 16 159/74 96 Room Air 02/20 1449 97.9 66 16 126/71 95 Room Air 0.0 I&O 02/20 0800 02/20 1600 02/21 0000 Intake Total 2478 0 2788 Output Total 1758 1540 995 Balance 720 -1540 1793 General Appearance Alert, Oriented X3, No acute distress HEENT PERRLA, Moist mucous membranes Lungs Clear to auscultation, Normal air movement Neck Supple, No JVD, No masses, No thyromegaly Cardiovascular Regular rate and rhythm, No murmurs, gallops, rubs Abdomen Soft, No tenderness Extremities No edema, Normal pulses, No tenderness Skin No Breakdown Neurological Normal gait, Normal speech, Sensation intact, Cranial nerves intact Psych/Mental Status Mood normal LAB Results Laboratory Tests 02/21 0525 Chemistry Plasma Sodium (136 - 145 mmol/L) 139 Plasma Potassium (3.5 - 5.1 mmol/L) 3.6 Plasma Chloride (98 - 107 mmol/L) 104 CO2 (Enzymatic) (21 - 32 mmol/L) 28 BUN (7 - 18 mg/dL) 19 Creatinine (0.6 - 1.3 mg/dL) 0.7 Est GFR ( Amer) (mL/min) >60 Est GFR (Non-Af Amer) (mL/min) >60 Glucose (70 - 110 mg/dL) 124 Plasma Calcium (8.5 - 10.1 mg/dL) 8.1 Assessment and Plan Problem List 1. Small bowel obstruction Plan - will continue with PEG for drainage - will c/w monitoring out put - awaiting approval for home tpn
[2017-02-22 02:56] VITALS: BP 150/65
[2017-02-22 06:55] VITALS: BP 135/57
--- NOTE | 2017-02-22 09:40 | Provider's Discharge Care Plan ---
Problem, Goal, Plan Problem List 1. Small bowel obstruction 2. Parastomal hernia without obstruction or gangrene
--- NOTE | 2017-02-22 09:40 | Provider's Discharge Care Plan ---
Problem, Goal, Plan Problem List 1. Small bowel obstruction 2. Parastomal hernia without obstruction or gangrene
--- NOTE | 2017-02-22 09:42 | Progress Note ---
Subjective General No new complaints, service planner reports home TPN is arranges. Physical Exam Vital Signs / I&Os Vital Signs Date Time Temp Pulse Resp B/P Pulse O2 O2 Flow FiO2 Ox Delivery Rate 02/22 0845 Room Air 0.0 02/22 0655 97.7 69 18 135/57 95 Room Air 0.0 02/22 0256 97.5 84 18 150/65 95 Room Air 02/21 2217 97.7 77 18 160/70 96 Room Air 0.0 02/21 2041 Room Air 02/21 1855 97.7 68 16 135/68 95 Room Air 0.0 02/21 1420 98.4 69 18 126/55 94 Room Air 02/21 1040 98.8 77 19 146/68 96 Room Air I&O 02/21 0800 02/21 1600 02/22 0000 Intake Total 1522 2062 Output Total 2024 1324 1351 Balance -503 -1324 711 General Appearance Alert, Oriented X3, Cooperative Abdomen Normal bowel sounds, Soft, No tenderness, mild tympany Assessment and Plan Problem List 1. Small bowel obstruction Plan home on tpn and g tube drainage-consider test clamping in a week or so.
[2017-02-22 10:25] VITALS: BP 113/57
--- NOTE | 2017-02-24 16:06 | DISCHARGE SUMMARY ---
ADMIT DATE: 01/22/2017 DISCHARGE DATE: 02/22/2017 DISCHARGE DIAGNOSES: 1. Chronic small-bowel obstruction 2. Left-sided parastomal hernia 3. Appendicitis HOSPITAL COURSE: The patient is an 81-year-old man who was admitted on 2016 with right-sided abdominal pain. He had evidence of bloated bowel and ileus or a bowel obstruction, but also had an inflammatory area in the area of the appendix. He had a complicated previous surgical history, which included a low anterior resection in 2011 for cancer, followed by anastomotic leak and colostomy. The patient also had neoadjuvant chemoradiotherapy to the pelvis for cancer. He also had a diverting ileostomy, which has long since been taken down, and currently has a left-sided colostomy. He had a parastomal hernia, which was repaired at one time in 2013. The patient had a biologic patch, but unfortunately recurred his hernia. The patient was hospitalized in [place] several times for prolonged ileus, and at one point was sent home with a PEG tube and TPN due to inability to resolve his partial small-bowel obstruction and ileus picture. On this occasion, the patient was admitted and given IV antibiotics for treatment of his presumed inflammation around the appendiceal region versus diverticulitis. The tenderness in this area rapidly resolved. He, however, continued to have episodes of bloating. After resolution of the inflammatory process, feeding attempts were gradually tried, but once the diet was advanced to the point of self-sustaining, he bloated up and became tight and distended. A high output nasogastric tube was placed, and the patient was again decompressed for a number of days. No Gastrografin was done, as the patient described a CONTRAST ALLERGY. Another attempt at very, very gradual removal of NG tube and refeeding was done, but upon resuming a diet, he immediately blew up and became tensely distended, requiring prolonged decompression to resolve the symptom. Dr. Tommie Velasco was called in [place], who reported similar experiences with him, and he advised avoiding surgery at this point, since surgery would be quite hazardous with this patient's history of radiation and numerous complicated operations. Instead, the patient was counseled to once again undergo decompressive PEG tube and continue on outpatient TPN. Note, the patient was on TPN throughout most of the hospital course, since he was unable to take significant oral alimentation. On 02/17/2017 he was taken to surgery where he underwent placement of a PEG tube as well as a tunneled Groshong catheter for longer-term TPN access. The patient did well with this. DISCHARGE INSTRUCTIONS/MEDICATIONS: Following surgery, arrangements were carried out for home TPN, and this took a number of days to get approval to make arrangements for home care. Once home TPN was arranged, the patient was discharged on 02/22/2017, to be followed up as an outpatient by his primary care physician or the surgeon of his choice.
== END 2017-02-22 14:25 | disposition home health service (06) | DRG 394 ==
LOC: ED SRH 11:51 → TRANS SRH 15:08 → CC SRH 17:25 → ACUTE2 SRH 01-22 10:53 → CC SRH 01-22 10:53 → ACUTE2 SRH 01-30 02:45 → ACUTE3 SRH 02-01 16:55 → ACUTE2 SRH 02-01 16:55
PROVIDERS: Surgery; ADMIT Emergency Medicine
PROC: 0D9670Z Drainage of Stomach with Drainage Device, Via Natural or Artificial Opening (ICD-10-PCS; 2017-01-25)
PROC: 02HV33Z Insertion of Infusion Device into Superior Vena Cava, Percutaneous Approach (ICD-10-PCS; 2017-01-26)
PROC: 3E0436Z Introduction of Nutritional Substance into Central Vein, Percutaneous Approach (ICD-10-PCS; 2017-02-17)
PROC: 0DH63UZ Insertion of Feeding Device into Stomach, Percutaneous Approach (ICD-10-PCS; principal; 2017-02-17 08:30)
PROC: 02HV33Z Insertion of Infusion Device into Superior Vena Cava, Percutaneous Approach (ICD-10-PCS; 2017-02-17 08:30)
DX: K36 Other appendicitis (principal); K56.60 Unspecified intestinal obstruction; D50.9 Iron deficiency anemia, unspecified; K94.09 Other complications of colostomy; Z85.038 Personal history of other malignant neoplasm of large intestine; Z92.3 Personal history of irradiation; I11.0 Hypertensive heart disease with heart failure; I50.9 Heart failure, unspecified; E03.9 Hypothyroidism, unspecified